=== PATIENT | male | born 1945 | race Caucasian/White ===

== ENCOUNTER 2016-11-29 13:33 | Inpatient (IN) | payer MEDICARE, OTHER ==
[~2016-11-29] VITALS: Ht 185.4 cm; Wt 83.1 kg
[2016-11-29] VITALS (7 sets, daily range): BP systolic 102–124; BP diastolic 55–79; PULSE 66–114; RESP 18–31; O2SAT 94–98
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
[~2016-11-29 13:33] MED LIST: ALBU90AE INHALATION; AMLO5TAB2 PO; CARV12.52 PO; CLOB50SO TOPICAL; ERGO500050 PO; FRSM80T PO; IPRA3AMP IH; LEVO100T6 PO; MELA1TAB11 PO; NEPHVIT PO; PRD5T PO; PRED-508 PO; SEVE800T7 PO
[2016-11-29] MEDS ORDERED: MethylprednisoLONE Sodium Succinate 62.5 mg/mL 2 mL Inj IVPUSH ONE (13:40)
[2016-11-29] MEDS ORDERED: Albuterol 2.5 mg/3 mL Inhalation Solution NEB ONE (13:50)
[2016-11-29 14:09] LABS: BASOPHILS % (AUTO) 0.3 % (0-3); EOSINOPHILS % (AUTO) 0.6 % (0-5); MONOCYTES % (AUTO) 13.3 % (4-12); Mean Corpuscular Volume 91.7 fL (81-100); NEUTROPHILS % (AUTO) 68.8 % (40-74); Platelet Count 79 bil/L (150-400)
--- NOTE | 2016-11-29 14:38 | DRSVH ---
PROCEDURE: X-RAY CHEST ONE VIEW, PORTABLE ([id number]) INDICATIONS: resp distress TECHNIQUE: One view of the chest was acquired. COMPARISON: [facility], CR, XR CHEST 2VW, 11/26/2016, 13:25. FINDINGS: Surgical changes and devices: None. Lungs and pleura: Small right-sided pleural fluid collection is unchanged compared to prior examinat ion. Bibasilar lung opacities have decreased in size compared to prior examination. Right midlung p leural-based lesion is stable compared to prior examinations. Mild cephalization of pulmonary vascul ature is noted suggesting CHF. Mediastinum: Mediastinal contours appear normal. Heart size is mildly enlarged. Bones and chest wall: No suspicious bony lesions. Overlying soft tissues appear unremarkable. IMPRESSION: 1. Mild cephalization of pulmonary vasculature suggesting CHF. Please correlate with clinical data. 2. Small right-sided pleural fluid collection is stable. 3. Bibasilar opacities decreased in size compared to 11/26/2016 Dictated by: Sandra Crum MD, PhD on 11/29/2016 at 14:36 Approved by: Sandra Crum MD, PhD on 11/29/2016 at 14:36
[2016-11-29 15:03] LABS: TROPONIN T 0.221 ug/L (0.0-0.011)
[2016-11-29] MEDS ORDERED: Furosemide 10 mg/mL 2 mL Inj IVPUSH ONE (15:50)
[2016-11-29] MEDS ORDERED: Furosemide 10 mg/mL 4 mL Inj IVPUSH ONE (15:55)
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
[2016-11-29] MEDS ORDERED: MIDO5TAB PO (17:15)
[2016-11-29] MEDS ORDERED: METO25TA99 PO (17:15)
[2016-11-29] MEDS ORDERED: LEVO500T79 PO (17:15)
[2016-11-29] MEDS ORDERED: ERGO2000 PO (17:17)
[2016-11-29] MEDS ORDERED: ATRINH INH ×2 (17:17→19:55)
[2016-11-29] MEDS ORDERED: ALBU18HF INH (17:17)
--- NOTE | 2016-11-29 18:15 | CONS ---
[address] [address] CONSULTATION REPORT PATIENT: KASSANDRA CARNEY : 1945 MR#: [id number] ADMIT: 11/29/2016 JOB ID: [id number] DATE OF SERVICE: 11/29/2016 HISTORY: The patient is a 71-year-old white male who has a history of end-stage renal disease and is well known to me as I follow him both as an in and outpatient. He is being admitted for decompensated heart failure and renal consultation is being sought for further evaluation of his fluid status. The patient has a longstanding history of end-stage renal disease which is secondary to retroperitoneal fibrosis. He also has a history of mitral valvular disease and has chronic congestive heart failure along with severe COPD. He has declined any intervention in the past, however, in the last few weeks he has had worsening symptoms of orthopnea, dyspnea at rest, conversational dyspnea, anorexia, and difficulty sleeping. He has had several extra dialysis treatments but these are only of limited utility. He states that he has had worsening shortness of breath over the last 24 hours and came to the emergency department. In the emergency department, he was treated with higher flow oxygen and chest x-ray revealed a water bottle heart and moderate to severe evidence of congestive heart failure on his chest x-ray. We are scheduling him for an emergent ultrafiltration treatment this evening. PAST MEDICAL HISTORY: Significant for end-stage renal disease secondary to retroperitoneal fibrosis for which he normally dialyzes on Wednesday, Wednesday, and Wednesday. His last dialysis was done this past Wednesday. There is also a history of severe COPD, for which he is oxygen-dependent, mitral valvular disease, congestive heart failure, hypertension with hypertensive heart disease and hypertensive nephrosclerosis, hypothyroidism, and psoriasis. PAST SURGICAL HISTORY: Significant for a hernia repair, several ureterostomies and a left upper arm fistula. ALLERGIES: He is allergic to TIOTROPIUM. SOCIAL HISTORY: He has a greater than 100 pack year smoking history and continues to smoke. He does state that he has a history of alcohol abuse in the past and has limited alcohol intake. FAMILY HISTORY: Noncontributory. REVIEW OF SYSTEMS: Otherwise, he denies any diplopia, severe headache, fever, chills, chest pain, or worsening of his lower extremity edema. He does have generalized malaise and I feel he has probably moderate cardiac cachexia. PHYSICAL EXAMINATION: Revealed a frail, somewhat cachectic-appearing 71-year-old, white male who was alert and oriented x3 with some moderate respiratory distress at time of my evaluation. He had evidence of conversational dyspnea and he was using his accessory muscles of respiration. His blood pressure is 111/55 with a pulse rate of 102, temperature was 37. HEENT examination is remarkable for pale sclerae and bitemporal wasting. Neck is supple without adenopathy or thyromegaly. He does have moderate jugular venous distention at 90 degrees. Examination of his chest showed increased AP diameter and scattered rales and end-expiratory wheezes were noted in both lung viveros. His heart was regular and rhythmical with a harsh systolic ejection murmur. Abdomen is soft with some moderate distention and a possible free fluid wave. There is hepatomegaly noted. Extremities showed some mild to moderate bilateral lower extremity edema approximately senior living up his distal lower legs. There is also evidence of clubbing but no cyanosis was noted. Skin turgor was good and there is no evidence of any rashes. LABORATORY EXAMINATION: In the emergency department, his white count was 7.1, hemoglobin 10.7, hematocrit 36.4, had 79,000 platelets. Sodium was 137, potassium 4.4, chloride 91, CO2 of 24. BUN and creatinine were 46 and 6.95. His blood sugar was 112. IMPRESSION: 1. Acute decompensated congestive heart failure with pulmonary edema secondary to chronic mitral valvular disease. 2. End-stage renal disease. 3. Hypertension with hypertensive heart disease and hypertensive nephrosclerosis. 4. Chronic obstructive pulmonary disease. RECOMMENDATION: I will go ahead and make arrangements for him to undergo 2 hours of isolated ultrafiltration this evening to remove several liters of fluid. I will also put him on the list to be dialyzed once again tomorrow. I would also like to have Cardiology evaluate him, and I would also like to get an ultrasound of his abdomen for possible ascites. Once again, I would like to thank you for allowing me to participate in the care of this rather unfortunate and pleasant patient, and I will be following him closely with you.
--- NOTE | 2016-11-29 19:46 | NUR ---
admission patient receiving dialysis at this time. severe edema to lower extremities, feet, ankles severe psoriasis to anterior calves, ankle, feet. unable to complete skin assessment at this time because of dialysis machine. patient states "i have psoriasis on my backside." patient hit right forearm this morning at home. has abrasion just below antecubital area. short of breath, chronic. tachypneic. markedly decreased. talking in full sentences. reviewed fall precautions. refuses slipper socks. refuses to use bsc. states "i have to walk to the bathroom or i won't go." again, explained fall precautions. patient unwilling to comply to bsc. tele atrial fibrillation rate 90-100. care ongoing.
--- NOTE | 2016-11-29 20:03 | NUR ---
noncompliant with medications patient has home medications with him in the room. reviewed home meds with med rec. explained to patient that the medications need to be checked in with the pharmacy or taken home. patient then became very angry, and stated that the medications couldn't leave him, and he insists that two of the medications be taken now. states "the doctor downstairs told me it was okay." the patient then stated "i am going to leave after dialysis because you won't let me take my medications from home" called charge nurse savi barros. notified nursing poly area supervisor, rola. per harnessmaker apprentice, rola will be up to speak with the patient. notified [facility] hospitalist. via [employer].
[2016-11-29] MEDS ORDERED: Albuterol HFA 60 Puff 8 Gm Inhaler INHALATION PRN (20:05)
[2016-11-29] MEDS ORDERED: levoFLOXacin 500 mg Tablet PO SCH (20:15)
[2016-11-29] MEDS ORDERED: Clobetasol Prop 0.05% 15 Gm Ointment TOPICAL PRN (20:20)
--- NOTE | 2016-11-29 20:21 | NUR ---
noncompliance spoke with swing hospitalist. he stated he gave an okay for the patient to keep his inhaler next to the bedside. patient insists that the doctor stated he can take his levaquin from home. clutching the bottle, states "if you don't let me i am going home." notified charge account identification clerk. awaiting nursing supervisor corduroy cutting to speak with patient. patient also will not allow his home medications to be checked in to pharmacy.
[2016-11-29] MEDS: Albuterol 2.5 mg/3 mL Inhalation Solution NEB SCH (20:33)
[2016-11-29] MEDS ORDERED: PYRIDOXINE PO SCH (21:00)
[2016-11-29] MEDS ORDERED: MELATONIN PO SCH (21:00)
--- NOTE | 2016-11-29 21:02 | NUR ---
Dialysis note 2 hrs PUF tx. 2500ml net UF removed. See DTR for complete vitals. Pt very SOB/productive cough/agitated/restless. Sureseals/clamps X10 mins post tx.
[2016-11-29] MEDS: levoFLOXacin 250 mg Tablet PO SCH (22:30)
[2016-11-29] MEDS ORDERED: HYDROcodone-APAP 5-325 mg Tablet PO PRN (22:35)
[2016-11-29] MEDS ORDERED: Polyethylene Glycol (PEG) 17 Gm Powder PO PRN (22:35)
[2016-11-29] MEDS ORDERED: Alum-Mag Hydrox-Simeth 30 mL Suspension PO PRN (22:35)
[2016-11-29] MEDS ORDERED: Ondansetron 2 mg/mL 2 mL Inj IVPUSH PRN (22:35)
[2016-11-29] MEDS: MethylprednisoLONE Sodium Succinate 40 mg/mL Inj IVPUSH SCH (22:53)
[2016-11-29] MEDS: Ipratropium HFA 200 Puff 12.9 Gm Inhaler INHALATION SCH (22:53)
[2016-11-29] MEDS: Sodium Chloride LOK Flush 10 mL Syringe IVFLUSH SCH (22:55)
[2016-11-29] MEDS: Albuterol HFA 60 Puff 8 Gm Inhaler INHALATION PRN (22:59)
--- NOTE | 2016-11-29 23:17 | NUR ---
noncompliance patient non compliant with fall policy. insists that when he gets oob, it will be independently, and he will walk to the bathroom independently, without assistance, and requires privacy when in the bathroom. explained falls policy and safety precautions. patient states "i will take no help, i will help myself, i require respect for dignity." placed bed alarm on. patient refuses slipper socks. wants his own slippers in the closet.
--- NOTE | 2016-11-29 23:19 | NUR ---
noncompliance - skin patient non compliant with skin assessment refuses to turn or stand to assess sacrum.
--- NOTE | 2016-11-29 23:28 | NUR ---
noncompliance - blood sugar blood sugar 216. patient refuses insulin s.s. states "i won't allow my blood sugar taken again. i refuse insulin."
--- NOTE | 2016-11-29 23:43 | NUR ---
discourtesy patient discourteous. when nurse offers assistance, patient states "you are insulting my independence." insists afrin be left at bedside for independent use. explained this is against policy. patient angry. does not listen to explanation.
[2016-11-30] VITALS (12 sets, daily range): BP systolic 110–130; BP diastolic 55–85; PULSE 56–106; RESP 18–28; O2SAT 92–100
[2016-11-30] MEDS: Albuterol 2.5 mg/3 mL Inhalation Solution NEB SCH ×6 (00:27→19:32)
--- NOTE | 2016-11-30 00:56 | NUR ---
home meds checked in home meds checked into pharmacy.
[2016-11-30] MEDS: MethylprednisoLONE Sodium Succinate 40 mg/mL Inj IVPUSH SCH (03:47)
[2016-11-30] MEDS: LORazepam 0.5 mg Tablet PO PRN (04:47)
--- NOTE | 2016-11-30 05:52 | NUR ---
anxiety/ insomnia patient unable to sleep. anxious. given lorazepam 0.5mg po. patient cont to be wide awake. making phone calls. care ongoing.
[2016-11-30] MEDS: Ipratropium HFA 200 Puff 12.9 Gm Inhaler INHALATION SCH ×4 (05:54→21:26)
[2016-11-30] MEDS: Albuterol HFA 60 Puff 8 Gm Inhaler INHALATION PRN (05:55)
[2016-11-30] MEDS: Sodium Chloride LOK Flush 10 mL Syringe IVFLUSH SCH ×3 (07:31→22:40)
[2016-11-30] MEDS: Heparin 5,000 Unit/mL Inj SUBQ SCH ×2 (08:30→20:30)
[2016-11-30] MEDS ORDERED: predniSONE 5 mg Tablet PO SCH (08:30)
[2016-11-30] MEDS ORDERED: Vitamin B Complex/Vit C Tablet PO SCH (08:30)
[2016-11-30] MEDS: MeTOProlol XL 25 mg ER24 Tablet PO SCH (08:30)
[2016-11-30 08:40] LABS: EOSINOPHILS % (AUTO) 0 % (0-5); Mean Corpuscular Hemoglobin 27.2 pg (27.0-35.0); Mean Corpuscular Volume 92.4 fL (81-100); Platelet Count 75 bil/L (150-400)
[2016-11-30 09:36] LABS: BASOPHILS % (AUTO) 0 % (0-3); MONOCYTES % (AUTO) 3 % (4-12); NEUTROPHILS % (AUTO) 82 % (40-74)
[2016-11-30] MEDS: levoFLOXacin 250 mg Tablet PO SCH ×2 (11:00→22:39)
--- NOTE | 2016-11-30 11:07 | PCM.PNMED ---
Subjective Date of Service Nov 30, 2016 Subjective Patient is to have some slight improvement with his shortness of breath over the night but this morning he continues to have difficulty breathing. I have had a naima discussion with the patient is far as the risks and potential benefits of bowel surgery and his multiple risk factors and comorbidities. States at this point he cannot be transferred to the [facility] wishes to be discharged within the next day or so. Exam Vital Signs Vital Sign - Last Date Time Temp Pulse Resp B/P Pulse Ox O2 Delivery O2 Flow Rate FiO2 11/30/16 08:48 36.5 103 24 126/55 98 Nasal Cannula 5.00 Intake and Output 11/29/16 11/29/16 11/30/16 Cumulative From/Thru 15:00 23:00 07:00 11/29/16 13:39 - 11/30/16 06:24 Intake Total 800 ml 800 ml Output Total 2500 ml 0 ml 2500 ml Balance -2500 ml 800 ml -1700 ml Intake Oral 800 ml 800 ml Output Urine Total 0 ml 0 ml Ultrafiltrate 2500 ml 2500 ml Exam Neck is supple without adenopathy thyromegaly he does have JVD at 90. Lungs diffuse end expiratory wheezes and bilateral rales. Heart demonstrated a harsh systolic and diastolic murmur. Abdomen is distended with questionable free fluid wave. Extremities showed some mild to moderate bilateral lower extremity edema with chronic vascular disease noted. 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 Also to schedule him for abdominal ultrasound to assess his abdominal fluid and large-volume paracentesis if indicated. Ap Pearce DO Nov 30, 2016 11:07
--- NOTE | 2016-11-30 12:00 | NUR ---
blood sugar is refusing blood sugar checks or insulin coverage. charted morning bg from morning labs.
--- NOTE | 2016-11-30 13:18 | PCM.PNMED ---
Subjective Date of Service Nov 30, 2016 Subjective 71 yr old male with history of ESRD on dialysis, oxygen dependent COPD and CHF presented to the ER with complaint of worsening dyspnea. Pt is very frustrated with the care he has received, stating "I don't know if i trust you people to take of me, no one knows renal stuff". Pt states that he got into some arguments with nursing last night, and considered leaving AMA. Pt notes that if he does not receive better care today, he may leave. Pt reports that his shortness of breath is worsening, and states it is because of his care. Pt reports that overnight he had difficulty breathing and was coughing more. Pt denies any nausea or vomiting or abdominal pain, but does report some constipation. Offered pt stool softener, pt declined. Pt denies any fevers, chills, myalgias. Per nursing notes, pt was non compliant with medications and falls policy overnight. Pt adamant about keeping his home medications with him. See nurse notes for details. Per previous records - Dr Ramos's note 08/2016--"The patient has two prior admissions from which he left AMA. He initially presented with progressive fatigue, malaise, fevers and rigors. At the time an ECHO showed a questionable mitral valve abnormality with curiously negative blood cultures off antibiotics. During that admission, he was noted on echocardiogram to have a mitral valve vegetation secondary to his central access for dialysis, which was then removed. A plan was made to initiate vancomycin and ceftazidime antibiotic therapy with the patient's dialysis, however he signed out AMA. He subsequently returned with another COPD exacerbation. Blood cultures obtained at that time only showed one bottle with staph saprophyticus which was a likely contaminant. He was treated empirically with vancomycin and ceftazidime for a planned course of 6-8 weeks. The patient was scheduled for an ABBAK however he left AMA the day before it could be completed. He was newly diagnosed with right heart failure secondary to mitral stenosis during his last admission." Exam Vital Signs Vital Sign - Last Date Time Temp Pulse Resp B/P Pulse Ox O2 Delivery O2 Flow Rate FiO2 11/30/16 04:43 36.5 86 22 120/82 95 Nasal Cannula 5.00 Intake and Output 11/29/16 11/29/16 11/30/16 Cumulative From/Thru 15:00 23:00 07:00 11/29/16 13:39 - 11/30/16 06:24 Intake Total 800 ml 800 ml Output Total 2500 ml 0 ml 2500 ml Balance -2500 ml 800 ml -1700 ml Intake Oral 800 ml 800 ml Output Urine Total 0 ml 0 ml Ultrafiltrate 2500 ml 2500 ml Exam General: Pt is sitting up in bed, mild respiratory distress, appropriately interactive HEENT: Normocephalic, atraumatic.Pale conjunctivae. Oropharynx with moist mucosa. Neck: Supple with full range of motion. JVD present Cardiovascular: Regular rate and rhythm with systolic murmur auscultated Pulmonary: Decreased lung sounds bilaterally 2/3 of lungs, crackles heard upper 1/3 of lung viveros. Increased work of breath with use of accessory muscles.Mild conversational dyspnea Abdomen: Mildly distended- which pt notes is chronic.Unable to assess for fluid wave as pt refused. Bowel tones present. Soft, nontender. Extremities: 2-3+ pitting edema bilateral lower extremities, skin is very dry. Unable to palpate pulses on lower extremities due to edema. Skin: Normal temperature, no rash, ulcers, or subcutaneous nodules appreciated. Neurological: Cranial nerves grossly intact. Normal muscle strength, tone, and bulk. Reflexes, coordination, and sensory function within normal limits. No known gait impairment. Psychiatric: Mildly agitated, but normal affect. Alert and oriented to person, place, and time. IVs and Medications Medications Reviewed: Medications were reviewed in detail Lab and Diagnostics Result Diagram: 11/29/16 1340 11/29/16 1340 X-Rays, CTs and MRIs PROCEDURE: X-RAY CHEST ONE VIEW, PORTABLE FINDINGS: Surgical changes and devices: None. Lungs and pleura: Small right-sided pleural fluid collection is unchanged compared to prior examination. Bibasilar lung opacities have decreased in size compared to prior examination. Right midlung pleural-based lesion is stable compared to prior examinations. Mild cephalization of pulmonary vasculature is noted suggesting CHF. Mediastinum: Mediastinal contours appear normal. Heart size is mildly enlarged. Bones and chest wall: No suspicious bony lesions. Overlying soft tissues appear unremarkable. IMPRESSION: 1. Mild cephalization of pulmonary vasculature suggesting CHF. Please correlate with clinical data. 2. Small right-sided pleural fluid collection is stable. 3. Bibasilar opacities decreased in size compared to 11/26/2016 Dictated by: Sandra Crum MD, PhD on 11/29/2016 at 14:36 Approved by: Sandra Crum MD, PhD on 11/29/2016 at 14:36 Assessment & Plan 71 yr old male with history of ESRD on dialysis, oxygen dependent COPD with ongoing tobacco use,mitral valve vegetation with possible endocarditis, diastolic CHF, afib, HTN, and HLD who presents to the ED complaining of increased shortness of breath. He typically uses 5L O2 at home and uses nebulizer treatments. Acute COPD exacerbation, present on admission, ongoing - Pt presents with progressive shortness of breath at rest and with exertion, with productive cough. Presents with decreased lung sounds and prolonged expiratory phase. - CXR shows "bibasilar opacities decreased in size compared to 11/26/2016" - DuoNeb q4h while awake - Albuterol neb q2h PRN -IV Solu-Medrol 60 mg every 8 discontinued -Prednisone 40mg BID, then 40mg daily for 5 days. - Sputum cultures ordered -Levaquin being given Acute decompensated diastolic congestive heart failure exacerbation, present on admission, ongoing - Monitor on telemetry -Diuresing pt -US of abdomen ordered to assess for ascites and possible need for paracentesis -Cardiology has been consulted, we appreciate their input. Elevated troponin, acute on chronic. - Pt has chronically elevated troponin secondary to ESRD and likely chronic from severe mitral valve calcification - Monitor troponin End-stage renal disease on dialysis - Dialysis M/W/F as at home - Nephrology has been consulted. We appreciate their expertise -Underwent 2 hours ultrafiltration on 11/29/16 Urinary tract infection, present prior to admission. -Pt prescribed 10 day course of Levaquin [address] Pearce -Continue with abx Mitral valve vegetation, unknown chronicity - Echo 08/12/16 showed mitral valve vegetation - Blood cultures x2 Tobacco use, chronic - Pt smokes over 1 pack per day. - Nicotine patch available - Pt counseled on smoking cessation. 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 No BiPAP Prophylaxis -DVT-SCDs and heparin, GI not indicated Resuscitation Status: Limited Interventions (cpr and shock ok, DNI and no BiPAP) Limited Interventions: Compressions, Cardioversion/Defibrillation Attending Statement The patient was seen and examined together with Dr. Lepe on 11/30/2016 and I agree with the history, exam and plan as outlined in the note above. Lesvia Lepe DO Nov 30, 2016 07:13 Bobby Siu MD Nov 30, 2016 20:46
[2016-11-30] MEDS: predniSONE 20 mg Tablet PO SCH ×2 (13:31→21:23)
--- NOTE | 2016-11-30 14:00 | NUR ---
off unit for dialysis pt went to dialysis in bed with portable O2. no s/s of distress at time of transfer
--- NOTE | 2016-11-30 14:04 | NUR ---
Social Work-initial assessment: Data:See initial assessment. Pt is a 71 y/o male who was admitted on 11/29/16 for CHF per H&P. Pt's insurance is [employer] and PCP is not listed. EMR reviewed. SW met with pt at bedside to discuss discharge planning, SW role explained. Pt is alert and oriented x3. Pt resides at home with his , son, and grandson in a home in [place]. Pt does not drive and does not use any DME. Pt has no HH or SNF history. SW attempted to continue to discuss assessment, but pt states he is not in mood to further discuss anything today. Pt requests that SW come back again tomorrow. SW placed phone number on white board in room. SW will continue to follow. Assessment:Pt who is independent at baseline. Plan:Anticipate pt to discharge home when medically stable. SW to follow up again tomorrow to complete full assessment. SW will continue to follow. PRAVEEN Bailey Addendum: 11/30/16 at 1409 by TUYET KING Amended: Links added.
--- NOTE | 2016-11-30 18:29 | NUR ---
shift note pt left unit for dialysis at 1400 and has not returned yet. Pt refused almost all of morning meds and blood sugar checks. Unable to do all interventions including second assessment d/t being off the unit. Pt was very agitated while on the floor and refused most tx and medications. A&O X3. Refused to let nurse do full skin assessment. Pt stated that he has psoriasis on scrotum and sacrum.
--- NOTE | 2016-11-30 18:30 | NUR ---
Dialysis note: 4 hrs tx. 3000 ml net UF. Left upper arm fistula. Pls see DTR for VS details. Qb 400. No heparin given. O2 @ 6L via NC on. Tolerated tx. Fistula needle sites clotted w/in 10 min.
[2016-11-30] MEDS ORDERED: levoFLOXacin 250 mg Tablet PO SCH (22:13)
[2016-11-30] MEDS: Vitamin B Complex/Vit C Tablet PO SCH (22:39)
[2016-12-01] VITALS (14 sets, daily range): BP systolic 98–131; BP diastolic 65–83; PULSE 38–121; RESP 20–24; O2SAT 92–99
[2016-12-01] MEDS: Albuterol 2.5 mg/3 mL Inhalation Solution NEB SCH ×6 (00:46→20:30)
[2016-12-01] MEDS ORDERED: MeTOProlol 1 mg/mL 5 mL Inj IVPUSH ONE (01:30)
--- NOTE | 2016-12-01 02:12 | PCM.PNMED ---
Subjective Date of Service Dec 01, 2016 Subjective THIS IS A QUICK PROGRESS NOTE FROM NIGHT RESIDENT, JASMIN . Exam Vital Signs Vital Sign - Last Date Time Temp Pulse Resp B/P Pulse Ox O2 Delivery O2 Flow Rate FiO2 12/01/16 00:40 86 24 98 Nasal Cannula 5.00 12/01/16 00:34 36.0 127/82 Intake and Output 11/30/16 11/30/16 12/01/16 Cumulative From/Thru 15:00 23:00 07:00 11/29/16 13:39 - 11/30/16 19:23 Intake Total 250 ml 1050 ml Output Total 3000 ml 5500 ml Balance -2750 ml -4450 ml Intake Oral 250 ml 1050 ml Output Urine Total 0 ml Ultrafiltrate 3000 ml 5500 ml # Bowel Movements 1 1 Lab and Diagnostics Result Diagram: 11/30/16 0825 11/30/16 0825 X-Rays, CTs and MRIs PROCEDURE: X-RAY CHEST ONE VIEW, PORTABLE FINDINGS: Surgical changes and devices: None. Lungs and pleura: Small right-sided pleural fluid collection is unchanged compared to prior examination. Bibasilar lung opacities have decreased in size compared to prior examination. Right midlung pleural-based lesion is stable compared to prior examinations. Mild cephalization of pulmonary vasculature is noted suggesting CHF. Mediastinum: Mediastinal contours appear normal. Heart size is mildly enlarged. Bones and chest wall: No suspicious bony lesions. Overlying soft tissues appear unremarkable. IMPRESSION: 1. Mild cephalization of pulmonary vasculature suggesting CHF. Please correlate with clinical data. 2. Small right-sided pleural fluid collection is stable. 3. Bibasilar opacities decreased in size compared to 11/26/2016 Dictated by: Sandra Crum MD, PhD on 11/29/2016 at 14:36 Approved by: Sandra Crum MD, PhD on 11/29/2016 at 14:36 12-lead ECG Personally reviewed by ia sinus tachycardia with first-degree AV block with a rate of 106 QTC of [address] segment changes consistent with ischemia Assessment & Plan 71 yr old male with history of ESRD on dialysis, oxygen dependent COPD with ongoing tobacco use,mitral valve vegetation with possible endocarditis, diastolic CHF, afib, HTN, and HLD who presents to the ED complaining of increased shortness of breath. He typically uses 5L O2 at home and uses nebulizer treatments. I was called to patient's bedside by the nurse because the patient was having chest pain. She had ordered an EKG which didn't look much different. Patient's pain was left side of chest and when I walked in, he was piercing his lips and unable to speak in full sentences. He has been refusing his oral metoprolol and his HR had been 115-125 for hours. I asked him why he refused it and he said that it makes him feel funny and dizzy. I explained that he needed rate control and after much discussion, he agreed to a trial of 2.5mg IV push of metoprolol. I stayed with him during this time because he said several times that he was scared of metoprolol. His HR immediately went down to 92 and his BP stayed at 124/72. He felt better instantly and relaxed and was able to speak in full sentences. He still feels cautious about the medication, but I will order the 2.5mg IV push PRN and let the day team adjust his medication appropriately ( perhaps 25mg PO was too high a dose?). I will order the IV push because it worked once and patient is comfortable with the dose but I understand that he needs to go to PO. By the way, I was able to discuss some end-of-life issues. 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 Admitted that he is scared to . . Resuscitation Status: Limited Interventions (cpr and shock ok, DNI and no BiPAP) Limited Interventions: Compressions, Cardioversion/Defibrillation Attending Statement Note reviewed by myself. Nicolette Casanova DO Dec 01, 2016 02:12 Magda Jack MD Dec 04, 2016 18:54
[2016-12-01] MEDS ORDERED: MeTOProlol 1 mg/mL 5 mL Inj IVPUSH PRN (02:15)
--- NOTE | 2016-12-01 04:00 | NUR ---
Chest pain, Heart rate, Dizziness: Pt reported chest pain that improved after a breathing treatment early in the shift, and again around midnight. An EKG and neb treatment were done with each occurrence. The second episode was described as a "cold" feeling and shortness of breath; no dizziness, nausea, pain. Heart rate was in the 120s-130s, the chest "coldness" was not decreasing after the neb treatment as before. The night resident was called and to the pt's room to review the EKGs and assess pt. It was noted that pt had been refusing his Metoprolol. Pt reported this was a new prescription and it made him dizzy and "about hit my nose on the table". After speaking with the resident, pt agreed to a small dose of IV Metoprolol. Medication administered, heart rate decreased to 90-100s and pt's had more ease of breathing. Since receiving the Metoprolol, pt has reported feeling dizzy. BP has been taken, also taken lying- 112/68- and sitting- 124/83. Pt informed to call for assistance when needing to get out of bed, pt aware.
[2016-12-01 06:39] LABS: BASOPHILS % (AUTO) 0.1 % (0-3); EOSINOPHILS % (AUTO) 0 % (0-5); Mean Corpuscular Hemoglobin 27.2 pg (27.0-35.0); Mean Corpuscular Volume 93.7 fL (81-100); NEUTROPHILS % (AUTO) 81.5 % (40-74); Platelet Count 84 bil/L (150-400)
[2016-12-01] MEDS: Ipratropium HFA 200 Puff 12.9 Gm Inhaler INHALATION SCH ×4 (06:46→21:29)
[2016-12-01 07:22] LABS: INR 1.08 ratio
[2016-12-01] MEDS: predniSONE 20 mg Tablet PO SCH ×2 (08:00→21:37)
[2016-12-01] MEDS: MeTOProlol XL 25 mg ER24 Tablet PO SCH (08:04)
[2016-12-01] MEDS: Vitamin B Complex/Vit C Tablet PO SCH (08:04)
[2016-12-01] MEDS: Heparin 5,000 Unit/mL Inj SUBQ SCH ×2 (08:04→20:30)
[2016-12-01] MEDS: Sodium Chloride LOK Flush 10 mL Syringe IVFLUSH SCH ×2 (08:04→16:18)
--- NOTE | 2016-12-01 10:09 | PCM.PNMED ---
Subjective Date of Service Dec 01, 2016 Subjective Patient was tested positive for influenza and is currently on treatment for this. His breathing remains quite difficult and I will attempt to do some gentle fluid removal today with 3 hours of isolated ultrafiltration. I have also discussed the case with Dr. Woods the patient's crester and she will see him today. Exam Vital Signs Vital Sign - Last Date Time Temp Pulse Resp B/P Pulse Ox O2 Delivery O2 Flow Rate FiO2 12/01/16 08:30 Supplement Oxygen 12/01/16 08:29 67 22 99 5.00 12/01/16 06:44 120/81 12/01/16 00:34 36.0 Intake and Output 11/30/16 11/30/16 12/01/16 Cumulative From/Thru 15:00 23:00 07:00 11/29/16 13:39 - 12/01/16 06:44 Intake Total 250 ml 400 ml 1450 ml Output Total 3000 ml 0 ml 5500 ml Balance -2750 ml 400 ml -4050 ml Intake Oral 250 ml 400 ml 1450 ml Output Urine Total 0 ml 0 ml Ultrafiltrate 3000 ml 5500 ml # Bowel Movements 1 0 1 Exam The patient has evidence of moderate conversational dyspnea and utilization of his accessory muscles of respiration. There is venous distention present. Lungs were clear though he has diminished breath sounds diffusely throughout his chest going to his history of emphysema. Abdomen was soft systolic murmur. Abdomen is soft without tenderness or rebound guarding masses or hepatosplenomegaly however his abdomen is distended. Extremities showed just mild to moderate lower extremity edema. Lab and Diagnostics Result Diagram: 12/01/16 0610 12/01/16 0610 X-Rays, CTs and MRIs PROCEDURE: X-RAY CHEST ONE VIEW, PORTABLE FINDINGS: Surgical changes and devices: None. Lungs and pleura: Small right-sided pleural fluid collection is unchanged compared to prior examination. Bibasilar lung opacities have decreased in size compared to prior examination. Right midlung pleural-based lesion is stable compared to prior examinations. Mild cephalization of pulmonary vasculature is noted suggesting CHF. Mediastinum: Mediastinal contours appear normal. Heart size is mildly enlarged. Bones and chest wall: No suspicious bony lesions. Overlying soft tissues appear unremarkable. IMPRESSION: 1. Mild cephalization of pulmonary vasculature suggesting CHF. Please correlate with clinical data. 2. Small right-sided pleural fluid collection is stable. 3. Bibasilar opacities decreased in size compared to 11/26/2016 Dictated by: Sandra Crum MD, PhD on 11/29/2016 at 14:36 Approved by: Sandra Crum MD, PhD on 11/29/2016 at 14:36 12-lead ECG Personally reviewed by me sinus tachycardia with first-degree AV block with a rate of 106 QTC of [address] segment changes consistent with ischemia Assessment & Plan Impression #1 end-stage renal disease also dependent #2 severe biventricular congestive heart failure #3 severe COPD number for influenza Recommendations #1 I would like to go ahead and do 3 hours of isolated ultrafiltration attempt to remove to 2 l of fluid. I will WAITING TO HAVE HIS ULTRASOUND DONE TO SEE IF WE CAN DRAW SOME FLUID FROM HIS ABDOMEN. OTHERWISE I WILL MAKE ARRANGEMENTS FOR HIS DIALYSIS ONCE AGAIN TOMORROW. Resuscitation Status: Limited Interventions (cpr and shock ok, DNI and no BiPAP) Limited Interventions: Compressions, Cardioversion/Defibrillation Ap Pearce DO Dec 01, 2016 10:09
--- NOTE | 2016-12-01 11:45 | NUR ---
Palliative Care Palliative Care received verbal order from Dr Nichole Lepe 12/01/16 to assist with goals of care. Patient is a 71 year old male with history of ESRD on dialysis, oxygen dependent COPD ,mitral valve vegetation with possible endocarditis, diastolic CHF, afib, HTN and HLD. He was admitted 11/29/16 due to increased shortness of breath. He is receiving care for acute COPD exacerbation. Palliative Care team saw patient numerous times during 10/2015 admission. Patient lives at home with . Juliet Valle () [phone] Koffi Valle (son) [phone] Palliative Care will see patient 12/02/16. Nakia Marquez
--- NOTE | 2016-12-01 11:47 | NUR ---
Medication refusal Patient refused morning medications due to patient usually taking them at different times at home. Patient did take Lasix, Renvela, and Tylenol, but nothing else. was informed of his refusal of medications.
[2016-12-01] MEDS: LORazepam 0.5 mg Tablet PO PRN ×2 (12:40→21:41)
--- NOTE | 2016-12-01 13:52 | NUR ---
Dialysis note 2 1/2 hrs of PUF tx completed before pt requesting to come off tx. 2 15 g needles to [place] fistula. QB 250. Heparin bolus/no hrly given. Pt very restless, SOB, c/p a burning type chest pain. Ativan and Tylenol given. See DTR for complete vitals. Sureseals/clamps X15 mins. Report given and pt returned to floor stable.
--- NOTE | 2016-12-01 14:20 | NUR ---
NUTRITION ASSESSMENT Assess: 71 yo M admitted w/ acute COPD exacerbation and acute decompensated diastolic heart failure. Pt also w/ ESRD on HD M/W/F. PMHx: ESRD on HD, COPD, CHF, Hypothyroid, Tobacco use, Psoriasis LABS: Reviewed. Cl 91, BUN 34, Cr 4.4, Glu 138 MEDICATIONS: Reviewed. Prednisone, Nephro-joseph, Renvela, Lasix DIET: Renal, PO 50% GI symptoms/stool: BM x1 1/2 Skin integrity: No issues reported, Oscar: 21 ANTHROPOMETRICS: Current Wt: 85.7 kg BMI: 24.9 kg/g8[place]oss Wt: 85.7 kg IBW: 83.6 kgRecent wt changes: 3.3 kg wt loss x6 months (4% = not significant) ESTIMATED NEEDS: Hemodialysis/COPD Calories: 3556-9335 kcal/d (35-40 kcal/kg/d) Protein: 105-170 g/d (1.2-2.0 g/kg/d) Fluids: 7143-6304 ml/d NUTRITION DIAGNOSIS: 1) Increased nutrient needs related to chronic disease as evidenced by COPD and ESRD w/ HD. INTERVENTION: 1) Will send Nepro BID MONITOR/EVALUATE: PO intake, Labs, Wt, Nutrition status, POC. Will follow up per moderate nutrition risk guidelines.
--- NOTE | 2016-12-01 15:13 | PCM.PNMED ---
Subjective Date of Service Dec 01, 2016 Subjective Patient reports that he is not improving from yesterday. Pt reports that he continues to feel short of breath and feels very fatigued. Pt states that last night he was given metoprolol which made him very dizzy. He states that he will not take this medication any more. Exam Vital Signs Vital Sign - Last Date Time Temp Pulse Resp B/P Pulse Ox O2 Delivery O2 Flow Rate FiO2 12/01/16 08:30 Supplement Oxygen 12/01/16 08:29 67 22 99 5.00 12/01/16 06:44 120/81 12/01/16 00:34 36.0 Intake and Output 11/30/16 11/30/16 12/01/16 Cumulative From/Thru 15:00 23:00 07:00 11/29/16 13:39 - 12/01/16 06:44 Intake Total 250 ml 400 ml 1450 ml Output Total 3000 ml 0 ml 5500 ml Balance -2750 ml 400 ml -4050 ml Intake Oral 250 ml 400 ml 1450 ml Output Urine Total 0 ml 0 ml Ultrafiltrate 3000 ml 5500 ml # Bowel Movements 1 0 1 Exam General: Pt is sitting on edge of bed with feet off bed. Pt appears fatigued. HEENT: Normocephalic, atraumatic.Pale conjunctivae. Oropharynx with moist mucosa. Neck: Supple with full range of motion. JVD present Cardiovascular: Regular rate and rhythm with systolic murmur auscultated Pulmonary: Decreased and coarse lung sounds bilaterally throughout. Increased work of breath with use of accessory muscles.Mild conversational dyspnea Abdomen: Bowel tones present. Soft, nontender. Extremities: 2-3+ pitting edema bilateral lower extremities, skin is very dry. Unable to palpate pulses on lower extremities due to edema. Skin: Normal temperature, no rash, ulcers, or subcutaneous nodules appreciated. Psychiatric: Normal mood and normal affect. Alert and oriented to person, place , and time IVs and Medications Medications Reviewed: Medications were reviewed in detail Lab and Diagnostics Result Diagram: 12/01/16 0610 12/01/16 0610 Microbiology Microbiology 11/29/16 Blood Culture - Preliminary, Resulted NO GROWTH AFTER 24 HOURS 11/30/16 Adenovirus DNA (PCR) - Final, Complete Not Detected 11/30/16 Coronavirus 229E PCR - Final, Complete Not Detected 11/30/16 Coronavirus HKU1 PCR - Final, Complete Not Detected 11/30/16 Coronavirus NL63 PCR - Final, Complete Not Detected 11/30/16 Coronavirus OC43 PCR - Final, Complete Not Detected 11/30/16 Influenza Type A (PCR) - Final, Complete Influenza A H3 11/30/16 Influenza Type B (PCR) - Final, Complete Not Detected 11/30/16 Human Metapneumovirus (PCR) (EDU) - Final, Complete Not Detected 11/30/16 Rhinovirus (PCR)(EDU) - Final, Complete Not Detected 11/30/16 Parainfluenza Virus Type 1 (PCR) - Final, Complete Not Detected 11/30/16 Parainfluenza Virus Type 2 (PCR) - Final, Complete Not Detected 11/30/16 Parainfluenza Virus Type 3 (PCR) - Final, Complete Not Detected 11/30/16 Parainfluenza Virus Type 4 (NAAT) - Final, Complete Not Detected 11/30/16 Respiratory Syncytial Virus (PCR)GA - Final, Complete Not Detected 11/30/16 Chlamydia pneumoniae (PCR) - Final, Complete Not Detected 11/30/16 Mycoplasma pneumoniae DNA Detection - Final, Complete X-Rays, CTs and MRIs PROCEDURE: X-RAY CHEST ONE VIEW, PORTABLE FINDINGS: Surgical changes and devices: None. Lungs and pleura: Small right-sided pleural fluid collection is unchanged compared to prior examination. Bibasilar lung opacities have decreased in size compared to prior examination. Right midlung pleural-based lesion is stable compared to prior examinations. Mild cephalization of pulmonary vasculature is noted suggesting CHF. Mediastinum: Mediastinal contours appear normal. Heart size is mildly enlarged. Bones and chest wall: No suspicious bony lesions. Overlying soft tissues appear unremarkable. IMPRESSION: 1. Mild cephalization of pulmonary vasculature suggesting CHF. Please correlate with clinical data. 2. Small right-sided pleural fluid collection is stable. 3. 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 He typically uses 5L O2 at home and uses nebulizer treatments. Acute COPD exacerbation, present on admission, ongoing - Pt presents with progressive shortness of breath at rest and with exertion, with productive cough. Presents with decreased lung sounds and prolonged expiratory phase. - CXR shows "bibasilar opacities decreased in size compared to 11/26/2016" - DuoNeb q4h while awake - Albuterol neb q2h PRN -Prednisone 40mg daily for 5 days. - Sputum cultures ordered -Levaquin being given -PCR positive for Influenza A -CXR today -Consider US guided thoracentesis Acute infection with Influenza A, ongoing -Pt believes he received the flu vaccine this season -Tamiflu started on 12/01/2016, will dose per dialysis Acute decompensated diastolic congestive heart failure exacerbation, present on admission, ongoing - Monitor on telemetry -Diuresing pt -US of abdomen---results pending -Cardiology has been consulted, we appreciate their input. Elevated troponin, acute on chronic. - Pt has chronically elevated troponin secondary to ESRD and likely chronic from severe mitral valve calcification - Monitor troponin End-stage renal disease on dialysis - Dialysis M/W/F as at home - Nephrology has been consulted. We appreciate their expertise -Underwent 2 hours ultrafiltration on 11/29/16 Urinary tract infection, present prior to admission. -Pt prescribed 10 day course of Levaquin [address] Pearce -Continue with abx Mitral valve vegetation, unknown chronicity - Echo 08/12/16 showed mitral valve vegetation - Blood cultures x2- no growth to date Tobacco use, chronic - Pt smokes over 1 pack per day. - Nicotine patch available - Pt counseled on smoking cessation. 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 NO INTUBATION. This was discussed with patient on 12/01/2016 Prophylaxis -DVT-SCDs and heparin, GI not indicated Resuscitation Status: Limited Interventions (cpr /shock/bipap ok, DNI ) Resuscitation Status: Limited Interventions Limited Interventions: Compressions, Cardioversion/Defibrillation, BiPAP Attending Statement The patient was seen and examined together with Dr. Lepe on 12/01/2016 and I agree with the history, exam and plan as outlined in the note above. Lesvia Lepe DO Dec 01, 2016 10:02 Bobby Siu MD Dec 02, 2016 09:50
--- NOTE | 2016-12-01 15:27 | DRSVH ---
PROCEDURE: US ABDOMEN, LIMITED ([id number]) INDICATIONS: assess for ascites TECHNIQUE: Real-time focused scanning was performed of the abdomen, with image documentation. COMPARISON: [facility], , ABDOMEN LTD, 08/13/2016, 15:19. FINDINGS: No evidence of ascites. IMPRESSION: No evidence of ascites. Dictated by: Jer Szymanski M.D. on 12/01/2016 at 15:25 Approved by: Jer Szymanski M.D. on 12/01/2016 at 15:25
--- NOTE | 2016-12-01 15:39 | DRSVH ---
PROCEDURE: X-RAY CHEST ONE VIEW, PORTABLE ([id number]) INDICATIONS: short of breath, +flu TECHNIQUE: One view of the chest was acquired. COMPARISON: [facility], CR, XR CHEST 1VW (PORTABLE), 11/29/2016, 13:39. FINDINGS: Surgical changes and devices: None. Lungs and pleura: There is a continued appearance of pulmonary edema. Bibasilar opacities are prese nt, although slightly less prominent. Mildly improved left pleural effusion. Mediastinum: Mediastinal contours appear normal. Heart size is enlarged. Bones and chest wall: No suspicious bony lesions. Overlying soft tissues appear unremarkable. IMPRESSION: Mild appearance of improvement in bibasilar opacities and effusion, as above. Dictated by: Zayra Olivas M.D. on 12/01/2016 at 15:37 Approved by: Zayra Olivas M.D. on 12/01/2016 at 15:37
[2016-12-01] MEDS: levoFLOXacin 250 mg Tablet PO SCH (21:22)
[2016-12-01] MEDS ORDERED: Sodium Chloride NAS 45 mL Spray NASAL PRN (22:25)
[2016-12-02] VITALS (11 sets, daily range): BP systolic 109–155; BP diastolic 73–89; PULSE 53–116; RESP 18–22; O2SAT 94–98
[2016-12-02] MEDS: Albuterol 2.5 mg/3 mL Inhalation Solution NEB SCH ×7 (01:04→20:57)
[2016-12-02] MEDS: Sodium Chloride LOK Flush 10 mL Syringe IVFLUSH SCH ×3 (01:36→18:09)
[2016-12-02] MEDS: Ipratropium HFA 200 Puff 12.9 Gm Inhaler INHALATION SCH ×4 (06:17→22:28)
[2016-12-02 06:36] LABS: EOSINOPHILS % (AUTO) 0 % (0-5); Mean Corpuscular Hemoglobin 27.5 pg (27.0-35.0); Platelet Count 83 bil/L (150-400)
--- NOTE | 2016-12-02 06:40 | NUR ---
Medications/Agitation: Pt has been upset with some of his medications and the scheduling of them. Pt was agitated most of the night and refused some of his medications. Pt remains AFib in the 110s primarily. Pt slept very little. Pt did apologize to staff this am. Pt up to the bathroom to try and defecate without success. Pt given senna. Will update oncoming staff.
[2016-12-02 07:57] LABS: MONOCYTES % (AUTO) 5 % (4-12); NEUTROPHILS % (AUTO) 86 % (40-74)
[2016-12-02 07:58] LABS: BASOPHILS % (AUTO) 0 % (0-3)
[2016-12-02] MEDS ORDERED: predniSONE 20 mg Tablet PO SCH (08:00)
[2016-12-02] MEDS: LORazepam 0.5 mg Tablet PO PRN ×2 (08:09→15:38)
[2016-12-02] MEDS: Heparin 5,000 Unit/mL Inj SUBQ SCH ×2 (08:30→20:30)
--- NOTE | 2016-12-02 13:03 | NUR ---
Palliative care note D/A: Chart reviewed, note that pt was seen by PC in 11/12. This worker is familiar with pt. Note that Catalina ([employer] [facility] [place] has been working with pt over past year to discuss possible follow up with outpt PC. Phone call to Catalina to discuss. She notes that pt continues to be a consistent participant in his dialysis. Pt condition has deteriorated somewhat in the last year. This worker recalls how much pt loved to drive and feel the wind in his face and chart notes indicate that pt has had to give up driving. Catalina confirms that he stopped driving a couple of months ago. She notes that pt has continued to politely decline OPC visist. Case discussed with Dr. Webber. This worker to attempt to meet with pt today to discuss PC visit. Attempted to meet with pt, sleeping. Fan blowing close to his face, large, gulping type breathing movements with mouth opening and closing for each breath. P: Palliative to continue to attempt to discuss today. Carley MATTHEWS CCM Addendum: 12/02/16 at 1432 by TUYET CERON Palliative care note amendment Dr. Webber has seen pt today. Pt agreeable at this time to DNR/DNI. Family arrived during provider consult. Dr. Webber to continue to work with pt and will discuss with him means to possibly assist him with symptom management. Carley MATTHEWS [facility]
--- NOTE | 2016-12-02 14:11 | PCM.CONPAL ---
Date of Service Dec 02, 2016 Date of Hospital Admission: Nov 29, 2016 at 18:16 Date of Palliative Consult: Dec 02, 2016 Requesting Provider: Lesvia Lepe DO Reason Palliative Care Consult: Goals of Care Discussion Hospital Unit @time of consult: Medical/Pediatric Care Palliative Care Recommendation 71-year-old gentleman with end-stage COPD as well as ESRD on hemodialysis, with progressive valvular heart disease, admitted with worsening weakness and dyspnea and evidence of acute on chronic respiratory failure. Palliative medicine consult to assist with determination of goals of care. Summary of palliative recommendations: -Symptom management (Pain/other)- continued management per hospitalist service. Consider trial of inhaled fentanyl which gave him good symptomatic relief in the past (as patient's CODE STATUS has now been changed to DO NOT RESUSCITATE/ DO NOT INTUBATE, less concerned about respiratory suppression with inhaled opioid). Will review with patient and his family and proceed if they request it. -DPOA/Advanced Directives/POLST- reviewed in detail with patient. As a consequence of our conversation, CODE STATUS updated to DO NOT RESUSCITATE/DO NOT INTUBATE. Patient and family not willing to proceed to comfort care at this time, pending further input of his cardiology team. -Family/emotional support- good support from his and son arrived while I was visiting with him today. Answered questions they had and outlined treatment plan. Patient Goals: 1. Patient and family want to be told the truth about his illness, even if it is unpleasant. 2. Patient and family would like to be told prognosis when it can be predicted, to better guide treatment decisions. Additional Medical Diagnoses with primary management by Hospitalist team include : Acute COPD exacerbation, present on admission, ongoing Acute infection with Influenza A, ongoing Acute decompensated diastolic congestive heart failure exacerbation, present on admission, ongoing Elevated troponin, acute on chronic. End-stage renal disease on dialysis Urinary tract infection, present prior to admission. 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 Advanced Care Planning Address: Code status change Pain: None Symptom management: Depression, Anxiety, Dyspnea Pt History History of Present Illness 71-year-old patient with end-stage lung disease, chronic home oxygen, end-stage renal disease on hemodialysis, severe mitral and aortic valve stenosis as well as right heart failure, presenting with progressive weakness, lack of energy and dyspnea, readmitted with acute on chronic respiratory failure. He relates a history of steady progressive deterioration since at least July,, which he feels is primarily on the basis of his progressive cardiac disease. He has been seen by cardiology with consultation recommendations pending. He has also been seen by Dr. Pearce of nephrology who has been supervising dialysis. Palliative medicine was consulted in order to review goals of care and wishes for advanced interventions. Patient had previously been seen by the palliative medicine service in 11/12 at which time CODE STATUS was determined to be DO NOT RESUSCITATE/DO NOT INTUBATE. Since that time he modified his wishes, and has requested CPR/defibrillation but has continued to refuse BiPAP, intubation or mechanical ventilation. Prior to visiting, reviewed his records in the EMR in detail dating back to 2014. On my arrival, he is a fatigued, depressed appearing man lying in bed. Mild- moderate respiratory distress is evident. He was awake and alert however. We spoke at length, reviewing his status in particular over the last 6 months and his perceived gradual deterioration. He admits to being depressed about the intractable nature of his illness, but says that he does not wish to be labeled as "depressed" because then "they will take my guns away". In addition to his dyspnea, he complains of severe lack of energy, to the degree that he cannot even get out of bed on his own anymore. 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 Surgical History Ureter surgeries in 2006 Knee surgery Bilateral cataract surgery AV fistula on left arm Dual lumen dialysis catheter on right chest Social History 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: [employer]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 and 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 Family Members Issues: Appropriate concern at his progressive decline Living Situation: Living at home with his ; son lives in separate quarters on the same property Palliative Performance Scale PPS Patient Status: Baseline PPS Ambulation: Mainly Bed PPS Activity: Unable to do any activity PPS Self-Care: Occasional assistance necessary PPS Intake: Normal or reduced PPS Conscious Level: Full or confusion Performance Scale: 40% ADLs ADL Patient Status: Baseline ADL Ambulation: Mainly Bed ADL Dressing: Considerable assistance required ADL Feeding: Occasional assistance necessary ADL Hygene/bathing: Occasional assistance necessary ADL Transfers: Occasional assistance necessary Allergy Allergies Reviewed: Yes Medications Current Medications: Current Medications Non-Formulary Medication 50,000 unit WEEKLY PO; Start 12/06/16 at 08:30; Status UNV Ergocalciferol 50,000 unit WEEKLY PO; Start 12/03/16 at 08:30 Prednisone 40 mg DAILYWM PO Last administered on 12/01/16 21:37; Admin Dose 40 MG; Start 12/01/16 at 08:00; Stop 12/02/16 at 04:54; Status DC Vitamin B Complex/ Vitamin C 1 tablet DAILY PO Last administered on 11/30/16 22: 39; Admin Dose 1 TABLET; Start 11/30/16 at 22:12; Stop 12/02/16 at 10:23; Status DC Levofloxacin 250 mg 11 PO; Start 11/30/16 at 22:13; Status Cancel Levofloxacin 250 mg HS PO Last administered on 12/01/16 21:22; Admin Dose 250 MG ; Start 11/30/16 at 22:30 Metoprolol Tartrate 2.5 mg Q5MIN PRN IVPUSH; Start 12/01/16 at 02:15 Sodium Chloride 2 spray PRN PRN NASAL; Start 12/01/16 at 22:25 Prednisone 40 mg DAILYWM PO; Start 12/02/16 at 08:00; Stop 12/02/16 at 10:23; Status DC Metoprolol Succinate 25 mg DAILY@20 PO; Start 12/02/16 at 20:00 Vitamin B Complex/ Vitamin C 1 tablet DAILY@20 PO; Start 12/02/16 at 20:00 Prednisone 40 mg DAILYWM@20 PO; Start 12/02/16 at 20:00; Stop 12/05/16 at 20:01 Scheduled Ergocalciferol (Vitamin D2) (Vitamin D2) 2,000 Unit Tablet 50,000 UNIT PO WEEKLY Furosemide (Furosemide) 80 Mg Tab 240 MG PO BID Ipratropium [place] (Atrovent HFA) 200 Puff/12.9 Gm Inhaler 2 PUFF INH QID Levofloxacin (Levofloxacin) 500 Mg Tablet 250 MG PO DAILY Levothyroxine (Levothyroxine) 100 Mcg Tablet 100 MCG PO HS Melatonin/Pyridoxine (Melatonin 3 mg Tablet) 1 Each Tablet 20 MG PO HS Metoprolol Succinate ER (Metoprolol Succinate ER) 25 Mg Tab.er.24h 25 MG PO D Midodrine (Midodrine) 5 Mg Tablet 5 MG PO BEFORE DIALYSIS Prednisone (PredniSONE) 5 Mg Tab 5 MG PO DAILY Vitamin B Complex/Vit C (Viviana-Belen Tablet) 1 Tab Tab 1 TAB PO DAILY Scheduled PRN Albuterol Sulfate (Ventolin HFA Inhaler) 200 Puff/18 Gm Inhaler 2 PUFF INH Q4 PRN PRN For Wheezing Clobetasol Propionate (Clobetasol Propionate) 50 Ml Solution 1 APPLIC TOPICAL DAILY PRN PRN psoriasis Sevelamer Carbonate (Renvela) 800 Mg Tablet 800 MG PO TID PRN PRN For Indigestion PT TAKES MED EVERY TIME HE EATS ANYTHING Objective Findings Exam Vital Sign - Last Date Time Temp Pulse Resp B/P Pulse Ox O2 Delivery O2 Flow Rate FiO2 12/02/16 10:47 104 12/02/16 10:30 36.3 20 109/76 96 Nasal Cannula 5.00 Intake and Output 12/01/16 12/01/16 12/02/16 Cumulative From/Thru 15:00 23:00 07:00 11/29/16 13:39 - 12/01/16 21:20 Intake Total 910 ml 2360 ml Output Total 1500 ml 0 ml 7000 ml Balance -1500 ml 910 ml -4640 ml Intake Oral 900 ml 2350 ml IV Total 10 ml 10 ml Output Urine Total 0 ml 0 ml Ultrafiltrate 1500 ml 7000 ml # Bowel Movements 1 2 Objective Frail gentleman lying in bed, moderate respiratory distress. Vital signs noted. Skin bronzed consistent with long-term dialysis. HEENT exam without acute focal findings. Lungs with diminished breath sounds diffusely but no wheezes. Heart tones regular with prominent systolic and diastolic murmurs. Abdomen rounded and nontender. No ultrasound does not show any evidence of ascites. Extremities with diffuse edema. Psoriatic skin changes diffusely as well as venous stasis changes. Lab/Diagnostics Lab and Imaging results reviewed in detail in EMR. Time spent Total time 70 minutes; >50% face to face with patient and family, providing counselling regarding plans and recommendations, and in care coordination with his medical teams. Of the above total time, 15 minutes counseling for advanced care planning with the patient, reviewing and updating code status. Kendrick Webber MD Dec 02, 2016 14:11
--- NOTE | 2016-12-02 14:20 | NUR ---
Telemetry Clarification: Sinus Rhythm Patient Sinus Rhythm 100-120s with a First Degree HB, PACs and PVC pairs. Patient has been Sinus Rhythm since admit with no Afib present. TERI Ingram aware. Addendum: 12/02/16 at 1446 by REE DAWSON Correction: TERI Sosa aware.
--- NOTE | 2016-12-02 14:40 | PCM.PNMED ---
Subjective Date of Service Dec 02, 2016 Subjective Patient reports that he feels terrible this morning. Pt states that he feels very fatigued and weak. Pt states that he feels very short of breath constantly and feels that it is not improving. Pt also reports that his chest feels cold "like a block of ice in my chest". Pt has fan blowing on his face, but states he needs this on to help him breath, and notes that the rest of his body does not feel cold. Pt reports weakness with no improvement. Pt reports that he is constipated, and nausea but denies any vomiting. Pt again expresses frustration at his care, and reports that he will not take his medications if he doesn't feel they are helping. Exam Vital Signs Vital Sign - Last Date Time Temp Pulse Resp B/P Pulse Ox O2 Delivery O2 Flow Rate FiO2 12/02/16 07:18 107 22 94 Nasal Cannula 5.00 12/02/16 04:38 35.8 155/89 Intake and Output 12/01/16 12/01/16 12/02/16 Cumulative From/Thru 14:59 22:59 06:59 11/29/16 13:39 - 12/01/16 21:20 Intake Total 910 ml 2360 ml Output Total 1500 ml 0 ml 7000 ml Balance -1500 ml 910 ml -4640 ml Intake Oral 900 ml 2350 ml IV Total 10 ml 10 ml Output Urine Total 0 ml 0 ml Ultrafiltrate 1500 ml 7000 ml # Bowel Movements 1 2 Exam General: Pt is sitting on edge of bed with feet off bed. Pt appears fatigued but improved from previous day HEENT: Normocephalic, atraumatic.Pale conjunctivae. Oropharynx with moist mucosa. Neck: Supple with full range of motion. JVD present Cardiovascular: Regular rate and rhythm with systolic murmur auscultated Pulmonary: Decreased and coarse lung sounds bilaterally throughout. Increased work of breath with use of accessory muscles.Mild conversational dyspnea Abdomen: Bowel tones present. Soft, nontender. Extremities: 2-3+ pitting edema bilateral lower extremities, skin is very dry. Unable to palpate pulses on lower extremities due to edema. Skin: Normal temperature, no rash, ulcers, or subcutaneous nodules appreciated. Psychiatric: Normal mood and normal affect. Alert and oriented to person, place , and time IVs and Medications Medications Reviewed: Medications were reviewed in detail Lab and Diagnostics Result Diagram: 12/01/16 0610 12/02/16 0605 Microbiology Microbiology 11/29/16 Blood Culture - Preliminary, Resulted NO GROWTH AFTER 24 HOURS 11/30/16 Adenovirus DNA (PCR) - Final, Complete Not Detected 11/30/16 Coronavirus 229E PCR - Final, Complete Not Detected 11/30/16 Coronavirus HKU1 PCR - Final, Complete Not Detected 11/30/16 Coronavirus NL63 PCR - Final, Complete Not Detected 11/30/16 Coronavirus OC43 PCR - Final, Complete Not Detected 11/30/16 Influenza Type A (PCR) - Final, Complete Influenza A H3 11/30/16 Influenza Type B (PCR) - Final, Complete Not Detected 11/30/16 Human Metapneumovirus (PCR) (EDU) - Final, Complete Not Detected 11/30/16 Rhinovirus (PCR)(EDU) - Final, Complete Not Detected 11/30/16 Parainfluenza Virus Type 1 (PCR) - Final, Complete Not Detected 11/30/16 Parainfluenza Virus Type 2 (PCR) - Final, Complete Not Detected 11/30/16 Parainfluenza Virus Type 3 (PCR) - Final, Complete Not Detected 11/30/16 Parainfluenza Virus Type 4 (NAAT) - Final, Complete Not Detected 11/30/16 Respiratory Syncytial Virus (PCR)[place] - Final, Complete Not Detected 11/30/16 Chlamydia pneumoniae (PCR) - Final, Complete Not Detected 11/30/16 Mycoplasma pneumoniae DNA Detection - Final, Complete X-Rays, CTs and MRIs PROCEDURE: X-RAY CHEST ONE VIEW, PORTABLE FINDINGS: Surgical changes and devices: None. Lungs and pleura: Small right-sided pleural fluid collection is unchanged compared to prior examination. Bibasilar lung opacities have decreased in size compared to prior examination. Right midlung pleural-based lesion is stable compared to prior examinations. Mild cephalization of pulmonary vasculature is noted suggesting CHF. Mediastinum: Mediastinal contours appear normal. Heart size is mildly enlarged. Bones and chest wall: No suspicious bony lesions. Overlying soft tissues appear unremarkable. IMPRESSION: 1. Mild cephalization of pulmonary vasculature suggesting CHF. Please correlate with clinical data. 2. Small right-sided pleural fluid collection is stable. 3. 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 He typically uses 5L O2 at home and uses nebulizer treatments. Acute COPD exacerbation, present on admission, ongoing - Pt presents with progressive shortness of breath at rest and with exertion, with productive cough. Presents with decreased lung sounds and prolonged expiratory phase. - CXR shows "bibasilar opacities decreased in size compared to 11/26/2016" - DuoNeb q4h while awake - Albuterol neb q2h PRN -Prednisone 40mg daily for 5 days. - Sputum cultures ordered -Levaquin being given -PCR positive for Influenza A -CXR (12/01/16) -showing improved opacities and effusion -Consider US guided thoracentesis if there is concern regarding worsening effusions Acute infection with Influenza A, ongoing -Pt believes he received the flu vaccine this season -Tamiflu started on 12/01/2016, will dose per dialysis Acute decompensated diastolic congestive heart failure exacerbation, present on admission, ongoing - Monitor on telemetry -Diuresing pt -US of abdomen did not demonstrate evidence of ascites -Cardiology does not feel there is anything that they can do for the patient at this time Elevated troponin, acute on chronic. - Pt has chronically elevated troponin secondary to ESRD and likely chronic from severe mitral valve calcification - Monitor troponin End-stage renal disease on dialysis - Dialysis M/W/F as at home - Nephrology has been consulted. We appreciate their expertise -Underwent 2 hours ultrafiltration on 11/29/16 -Has undergone dialysis daily for past 3 days.No dialysis today Urinary tract infection, present prior to admission. -Pt prescribed 10 day course of Levaquin [address] Pearce -Continue with abx Mitral valve vegetation, unknown chronicity - Echo 08/12/16 showed mitral valve vegetation - Blood cultures x2- no growth to date Tobacco use, chronic - Pt smokes over 1 pack per day. - Nicotine patch available - Pt counseled on smoking cessation. 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 NO INTUBATION. This was discussed with patient on 12/01/2016 Prophylaxis -DVT-SCDs and heparin, GI not indicated Resuscitation Status: Limited Interventions (cpr /shock/bipap ok, DNI ) Resuscitation Status: Limited Interventions Limited Interventions: Compressions, Cardioversion/Defibrillation, BiPAP Attending Statement The patient was seen and examined together with Dr. Lepe on 12/02/2015 and I agree with the history, exam and plan as outlined in the note above. Lesvia Lepe DO Dec 02, 2016 07:34 Bobby Siu MD Dec 03, 2016 10:12
--- NOTE | 2016-12-02 16:01 | NUR ---
SOB Pt c/o of SOB with oxygen 5L NC, and general malaise. Pt stated, "I just don't feel like I can make it today." Gave Ativan, with moderate relief.
--- NOTE | 2016-12-02 16:23 | PCM.PNMED ---
Subjective Date of Service Dec 02, 2016 Subjective The patient states he does not feel any improvement he appears to be in less respiratory distress and have less conversational dyspnea. Exam Vital Signs Vital Sign - Last Date Time Temp Pulse Resp B/P Pulse Ox O2 Delivery O2 Flow Rate FiO2 12/02/16 15:09 58 22 95 Nasal Cannula 5.00 12/02/16 14:30 35.7 122/73 Intake and Output 12/01/16 12/01/16 12/02/16 Cumulative From/Thru 15:00 23:00 07:00 11/29/16 13:39 - 12/01/16 21:20 Intake Total 910 ml 2360 ml Output Total 1500 ml 0 ml 7000 ml Balance -1500 ml 910 ml -4640 ml Intake Oral 900 ml 2350 ml IV Total 10 ml 10 ml Output Urine Total 0 ml 0 ml Ultrafiltrate 1500 ml 7000 ml # Bowel Movements 1 2 Exam Neck is supple with some mild jugular venous distention at 90. Lungs are showing some scattered end expiratory wheezes in both lung viveros. Heart is regular and rhythmical with a soft systolic murmur and a diastolic component. Abdomen soft without any tenderness rebound guarding masses or hepatosplenomegaly. 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 Lab and Diagnostics Result Diagram: 12/02/16 0612/02/16 06 Microbiology Microbiology 11/29/16 Blood Culture - Preliminary, Resulted NO GROWTH AFTER 24 HOURS 11/30/16 Adenovirus DNA (PCR) - Final, Complete Not Detected 11/30/16 Coronavirus 229E PCR - Final, Complete Not Detected 11/30/16 Coronavirus HKU1 PCR - Final, Complete Not Detected 11/30/16 Coronavirus NL63 PCR - Final, Complete Not Detected 11/30/16 Coronavirus OC43 PCR - Final, Complete Not Detected 11/30/16 Influenza Type A (PCR) - Final, Complete Influenza A H3 11/30/16 Influenza Type B (PCR) - Final, Complete Not Detected 11/30/16 Human Metapneumovirus (PCR) (EDU) - Final, Complete Not Detected 11/30/16 Rhinovirus (PCR)(EDU) - Final, Complete Not Detected 11/30/16 Parainfluenza Virus Type 1 (PCR) - Final, Complete Not Detected 11/30/16 Parainfluenza Virus Type 2 (PCR) - Final, Complete Not Detected 11/30/16 Parainfluenza Virus Type 3 (PCR) - Final, Complete Not Detected 11/30/16 Parainfluenza Virus Type 4 (NAAT) - Final, Complete Not Detected 11/30/16 Respiratory Syncytial Virus (PCR)[place] - Final, Complete Not Detected 11/30/16 Chlamydia pneumoniae (PCR) - Final, Complete Not Detected 11/30/16 Mycoplasma pneumoniae DNA Detection - Final, Complete X-Rays, CTs and MRIs PROCEDURE: X-RAY CHEST ONE VIEW, PORTABLE FINDINGS: Surgical changes and devices: None. Lungs and pleura: Small right-sided pleural fluid collection is unchanged compared to prior examination. Bibasilar lung opacities have decreased in size compared to prior examination. Right midlung pleural-based lesion is stable compared to prior examinations. Mild cephalization of pulmonary vasculature is noted suggesting CHF. Mediastinum: Mediastinal contours appear normal. Heart size is mildly enlarged. Bones and chest wall: No suspicious bony lesions. Overlying soft tissues appear unremarkable. IMPRESSION: 1. Mild cephalization of pulmonary vasculature suggesting CHF. Please correlate with clinical data. 2. Small right-sided pleural fluid collection is stable. 3. Bibasilar opacities decreased in size compared to 11/26/2016 Dictated by: Sandra Crum MD, PhD on 11/29/2016 at 14:36 Approved by: Sandra Crum MD, PhD on 11/29/2016 at 14:36 Assessment & Plan Impression #1 end-stage renal disease dialysis dependent #2 severe biventricular congestive heart failure #3 influenza #4 COPD Recommendations #1 I will make recommendations for his dialysis in the morning. Resuscitation Status: Limited Interventions Limited Interventions: Compressions, Cardioversion/Defibrillation, BiPAP Ap Pearce DO Dec 02, 2016 16:23
[2016-12-02] MEDS: levoFLOXacin 250 mg Tablet PO SCH (20:01)
[2016-12-02] MEDS: Vitamin B Complex/Vit C Tablet PO SCH (20:01)
[2016-12-02] MEDS: predniSONE 20 mg Tablet PO SCH (20:01)
[2016-12-02] MEDS: MeTOProlol XL 25 mg ER24 Tablet PO SCH (20:01)
[2016-12-03] VITALS (10 sets, daily range): BP systolic 101–129; BP diastolic 61–82; PULSE 65–106; RESP 16–24; O2SAT 92–99
[2016-12-03] MEDS: Sodium Chloride LOK Flush 10 mL Syringe IVFLUSH SCH ×3 (00:32→17:33)
[2016-12-03] MEDS: LORazepam 0.5 mg Tablet PO PRN ×2 (02:53→21:46)
[2016-12-03] MEDS: Albuterol 2.5 mg/3 mL Inhalation Solution NEB SCH ×2 (04:30→07:19)
[2016-12-03 07:09] LABS: Mean Corpuscular Hemoglobin 27.8 pg (27.0-35.0); Mean Corpuscular Volume 90.2 fL (81-100); Platelet Count 95 bil/L (150-400)
[2016-12-03] MEDS ORDERED: Ergocalciferol (Vit D2) 50,000 Unit Capsule PO SCH (08:30)
[2016-12-03] MEDS: Heparin 5,000 Unit/mL Inj SUBQ SCH ×2 (08:30→20:30)
[2016-12-03 08:34] LABS: BASOPHILS % (AUTO) 0 % (0-3); EOSINOPHILS % (AUTO) 1 % (0-5); MONOCYTES % (AUTO) 5 % (4-12); NEUTROPHILS % (AUTO) 80 % (40-74)
[2016-12-03] MEDS: Ipratropium HFA 200 Puff 12.9 Gm Inhaler INHALATION SCH ×4 (10:08→21:47)
--- NOTE | 2016-12-03 12:29 | PCM.PNMED ---
Subjective Date of Service Dec 03, 2016 Subjective Patient seems to be a little bit less respiratory distress and overall seems to be showing some slight improvement. Still has conversational dyspnea. Appears to be much less than previous examinations. Has a dry nonproductive cough. Exam Vital Signs Vital Sign - Last Date Time Temp Pulse Resp B/P Pulse Ox O2 Delivery O2 Flow Rate FiO2 12/03/16 10:16 36.3 93 20 123/81 99 Nasal Cannula 5.00 Intake and Output 12/02/16 12/02/16 12/03/16 Cumulative From/Thru 15:00 23:00 07:00 11/29/16 13:39 - 12/03/16 06:32 Intake Total 600 ml 640 ml 770 ml 4370 ml Output Total 0 ml 0 ml 0 ml 7000 ml Balance 600 ml 640 ml 770 ml -2630 ml Intake Oral 600 ml 640 ml 770 ml 4360 ml IV Total 10 ml Output Urine Total 0 ml 0 ml 0 ml 0 ml Ultrafiltrate 7000 ml # Bowel Movements 0 2 Exam Neck is supple without adenopathy thyromegaly or jugular venous distention. Lungs demonstrated diffuse end expiratory wheezes and scattered rhonchi. Heart was irregularly irregular. Abdomen was distended but no tenderness rebound guarding masses or hepatosplenomegaly was noted. Extremities showed some persistent chronic lower extremity edema. Lab and Diagnostics Result Diagram: 12/03/16 0615 12/03/16 0940 Microbiology Microbiology 11/29/16 Blood Culture - Preliminary, Resulted NO GROWTH AFTER 24 HOURS 11/30/16 Adenovirus DNA (PCR) - Final, Complete Not Detected 11/30/16 Coronavirus 229E PCR - Final, Complete Not Detected 11/30/16 Coronavirus HKU1 PCR - Final, Complete Not Detected 11/30/16 Coronavirus NL63 PCR - Final, Complete Not Detected 11/30/16 Coronavirus OC43 PCR - Final, Complete Not Detected 11/30/16 Influenza Type A (PCR) - Final, Complete Influenza A H3 11/30/16 Influenza Type B (PCR) - Final, Complete Not Detected 11/30/16 Human Metapneumovirus (PCR) (EDU) - Final, Complete Not Detected 11/30/16 Rhinovirus (PCR)(EDU) - Final, Complete Not Detected 11/30/16 Parainfluenza Virus Type 1 (PCR) - Final, Complete Not Detected 11/30/16 Parainfluenza Virus Type 2 (PCR) - Final, Complete Not Detected 11/30/16 Parainfluenza Virus Type 3 (PCR) - Final, Complete Not Detected 11/30/16 Parainfluenza Virus Type 4 (NAAT) - Final, Complete Not Detected 11/30/16 Respiratory Syncytial Virus (PCR)[place] - Final, Complete Not Detected 11/30/16 Chlamydia pneumoniae (PCR) - Final, Complete Not Detected 11/30/16 Mycoplasma pneumoniae DNA Detection - Final, Complete X-Rays, CTs and MRIs PROCEDURE: X-RAY CHEST ONE VIEW, PORTABLE FINDINGS: Surgical changes and devices: None. Lungs and pleura: Small right-sided pleural fluid collection is unchanged compared to prior examination. Bibasilar lung opacities have decreased in size compared to prior examination. Right midlung pleural-based lesion is stable compared to prior examinations. Mild cephalization of pulmonary vasculature is noted suggesting CHF. Mediastinum: Mediastinal contours appear normal. Heart size is mildly enlarged. Bones and chest wall: No suspicious bony lesions. Overlying soft tissues appear unremarkable. IMPRESSION: 1. Mild cephalization of pulmonary vasculature suggesting CHF. Please correlate with clinical data. 2. Small right-sided pleural fluid collection is stable. 3. Bibasilar opacities decreased in size compared to 11/26/2016 Dictated by: Sandra Crum MD, PhD on 11/29/2016 at 14:36 Approved by: Sandra Crum MD, PhD on 11/29/2016 at 14:36 Assessment & Plan Impression #1 end-stage renal disease dialysis dependent #2 severe biventricular congestive heart failure #3 influenza #4 COPD Recommendations #1 patient to be dialyzed today for 4 hours on a 2 potassium bath. I would like to take her approximately 2-3 L of fluid off of him. Resuscitation Status: Limited Interventions Limited Interventions: Compressions, Cardioversion/Defibrillation, BiPAP Ap Pearce DO Dec 03, 2016 12:29
--- NOTE | 2016-12-03 13:19 | NUR ---
DIALYSIS/BM P- Patient didn't get dialysis Wednesday, K+ 5.9, has not had BM for two days. I- Patient taken to inpatient dialysis today at 1230, report given to [facility] CHARGE Lilly WILLIAMSON. Patient given laxatives this am. E- Patient had large BM today just prior to dialysis.
--- NOTE | 2016-12-03 14:26 | PCM.PNMED ---
Subjective Date of Service Dec 03, 2016 Subjective Patient reports that he has not been sleeping at all overnight. He reports that he feels weaker than yesterday. He feels that his breathing is about the same, with no significant improvement or worsening. Pt denies any fevers, chills, nausea or vomiting. Pt reports that he has been very constipated and that the medication has not been helping this issue. Exam Vital Signs Vital Sign - Last Date Time Temp Pulse Resp B/P Pulse Ox O2 Delivery O2 Flow Rate FiO2 12/03/16 07:20 90 22 96 Nasal Cannula 6.00 12/03/16 06:12 35.9 128/82 Intake and Output 12/02/16 12/02/16 12/03/16 Cumulative From/Thru 15:00 23:00 07:00 11/29/16 13:39 - 12/03/16 06:32 Intake Total 600 ml 640 ml 770 ml 4370 ml Output Total 0 ml 0 ml 0 ml 7000 ml Balance 600 ml 640 ml 770 ml -2630 ml Intake Oral 600 ml 640 ml 770 ml 4360 ml IV Total 10 ml Output Urine Total 0 ml 0 ml 0 ml 0 ml Ultrafiltrate 7000 ml # Bowel Movements 0 2 Exam General: Pt is sitting on edge of bed with right leg hanging off bed. Pt appears fatigued but improved from previous day. HEENT: Normocephalic, atraumatic.Pale conjunctivae. Oropharynx with moist mucosa. Neck: Supple with full range of motion. JVD present Cardiovascular: Regular rate and rhythm with systolic murmur auscultated Pulmonary: Decreased and coarse lung sounds bilaterally throughout( improved from previous day,less coarse) continued work of breathing with use of accessory muscles.Mild conversational dyspnea-mildly improved from previous day Abdomen: Bowel tones present. Soft, nontender. Extremities: 2+ pitting edema bilateral lower extremities, skin is very dry. Unable to palpate pulses on lower extremities due to edema. Skin: Normal temperature, no rash, ulcers, or subcutaneous nodules appreciated. Psychiatric: Normal mood and normal affect. Alert and oriented to person, place , and time IVs and Medications Medications Reviewed: Medications were reviewed in detail Lab and Diagnostics Result Diagram: 12/02/16 0612/02/16 06 Microbiology Microbiology 11/29/16 Blood Culture - Preliminary, Resulted NO GROWTH AFTER 24 HOURS 11/30/16 Adenovirus DNA (PCR) - Final, Complete Not Detected 11/30/16 Coronavirus 229E PCR - Final, Complete Not Detected 11/30/16 Coronavirus HKU1 PCR - Final, Complete Not Detected 11/30/16 Coronavirus NL63 PCR - Final, Complete Not Detected 11/30/16 Coronavirus OC43 PCR - Final, Complete Not Detected 11/30/16 Influenza Type A (PCR) - Final, Complete Influenza A H3 11/30/16 Influenza Type B (PCR) - Final, Complete Not Detected 11/30/16 Human Metapneumovirus (PCR) (EDU) - Final, Complete Not Detected 11/30/16 Rhinovirus (PCR)(EDU) - Final, Complete Not Detected 11/30/16 Parainfluenza Virus Type 1 (PCR) - Final, Complete Not Detected 11/30/16 Parainfluenza Virus Type 2 (PCR) - Final, Complete Not Detected 11/30/16 Parainfluenza Virus Type 3 (PCR) - Final, Complete Not Detected 11/30/16 Parainfluenza Virus Type 4 (NAAT) - Final, Complete Not Detected 11/30/16 Respiratory Syncytial Virus (PCR)[place] - Final, Complete Not Detected 11/30/16 Chlamydia pneumoniae (PCR) - Final, Complete Not Detected 11/30/16 Mycoplasma pneumoniae DNA Detection - Final, Complete X-Rays, CTs and MRIs PROCEDURE: X-RAY CHEST ONE VIEW, PORTABLE FINDINGS: Surgical changes and devices: None. Lungs and pleura: Small right-sided pleural fluid collection is unchanged compared to prior examination. Bibasilar lung opacities have decreased in size compared to prior examination. Right midlung pleural-based lesion is stable compared to prior examinations. Mild cephalization of pulmonary vasculature is noted suggesting CHF. Mediastinum: Mediastinal contours appear normal. Heart size is mildly enlarged. Bones and chest wall: No suspicious bony lesions. Overlying soft tissues appear unremarkable. IMPRESSION: 1. Mild cephalization of pulmonary vasculature suggesting CHF. Please correlate with clinical data. 2. Small right-sided pleural fluid collection is stable. 3. 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 He typically uses 5L O2 at home and uses nebulizer treatments. Acute COPD exacerbation, present on admission, ongoing - Pt presents with progressive shortness of breath at rest and with exertion, with productive cough. Presents with decreased lung sounds and prolonged expiratory phase. - CXR shows "bibasilar opacities decreased in size compared to 11/26/2016" - DuoNeb q4h discontinued as pt prefers to use inhalers. - Albuterol neb q2h PRN -Prednisone 40mg daily for 5 day course - Sputum cultures ordered -Levaquin being given -PCR positive for Influenza A -CXR (12/01/16) -showing improved opacities and effusion Acute infection with Influenza A, ongoing -Pt believes he received the flu vaccine this season -Tamiflu started on 12/01/2016, will dose per dialysis Acute decompensated diastolic congestive heart failure exacerbation, present on admission, ongoing - Monitor on telemetry -Diuresing pt -US of abdomen did not demonstrate evidence of ascites -Cardiology will see patient to discuss prognosis and treatment options, we appreciate their input and guidance. Elevated troponin, acute on chronic. - Pt has chronically elevated troponin secondary to ESRD and likely chronic from severe mitral valve calcification - Monitor troponin End-stage renal disease on dialysis - Dialysis M/W/F as at home - Nephrology has been consulted. We appreciate their expertise -Underwent 2 hours ultrafiltration on 11/29/16 -Dialysis today Urinary tract infection, present prior to admission. -Pt prescribed 10 day course of Levaquin [address] Pearce -Continue with abx Mitral valve vegetation, unknown chronicity - Echo 08/12/16 showed mitral valve vegetation - Blood cultures x2- no growth to date Tobacco use, chronic - Pt smokes over 1 pack per day. - Nicotine patch available - Pt counseled on smoking cessation. 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 Resuscitation Status: DNR/DNI:Do Not Resuscitate/Intubate Attending Statement The patient was seen and examined together with Dr. Lepe on 12/03/2016 and I agree with the history, exam and plan as outlined in the note above. Lesvia Lepe DO Dec 03, 2016 08:13 Bobby Siu MD Dec 04, 2016 10:09
--- NOTE | 2016-12-03 15:58 | PCM.PALLBR ---
Palliative Care Recommendation 71-year-old gentleman with end-stage COPD as well as ESRD on hemodialysis, with progressive valvular heart disease, admitted with worsening weakness and dyspnea and evidence of acute on chronic respiratory failure. Palliative medicine consult to assist with determination of goals of care. Summary of palliative recommendations: -Symptom management (Pain/other)- continued management per hospitalist service. Consider trial of inhaled fentanyl which gave him good symptomatic relief in the past (as patient's CODE STATUS has now been changed to DO NOT RESUSCITATE/ DO NOT INTUBATE, less concerned about respiratory depression with inhaled opioid ). -DPOA/Advanced Directives/POLST- reviewed in detail with patient. As a consequence of our conversation, CODE STATUS updated to DO NOT RESUSCITATE/DO NOT INTUBATE. Patient and family not willing to proceed to comfort care at this time, pending further input of his cardiology team. -Family/emotional support- good support from his and son Patient Goals: 1. Patient and family want to be told the truth about his illness, even if it is unpleasant. 2. Patient and family would like to be told prognosis when it can be predicted, to better guide treatment decisions. Additional Medical Diagnoses with primary management by Hospitalist team include : Acute COPD exacerbation, present on admission, ongoing Acute infection with Influenza A, ongoing Acute decompensated diastolic congestive heart failure exacerbation, present on admission, ongoing Elevated troponin, acute on chronic. End-stage renal disease on dialysis Urinary tract infection, present prior to admission. Mitral valve vegetation, unknown chronicity Tobacco use, chronic Hypothyroidism, chronic Hypertension, chronic 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 Problems: End of Life Preferences DO NOT RESUSCITATE/DO NOT INTUBATE Goals of Care Patient continues to hope for recovery and returned home, but is beginning to realize that he is nearing end-of-life and that symptoms may not improve significantly Disposition To be determined Resuscitation Status Resuscitation Status: DNR/DNI:Do Not Resuscitate/Intubate Limited Interventions: Compressions, Cardioversion/Defibrillation, BiPAP Total time 30 minutes; >50% face to face with patient , providing counselling regarding plans and recommendations, and in care coordination with his medical teams, including his high school foreign language tutor. Palliative Brief Note Date of Service Dec 03, 2016 . Returned to reevaluate patient. Prior to visiting, reviewed updated records in the EMR and spoke with his nurse. Spoke with his high school foreign language tutor Dr. Woods, who noted that she had nothing further to offer from a cardiology standpoint. She planned on visiting the patient later in the day to provide this information to him. Patient and his had told me yesterday that further decisions regarding his ongoing care depended on what his high school foreign language tutor would tell him. [place] [facility] [place] He was asleep but awakened easily. Noted his breathing was perhaps slightly better. Remains quite fatigued. Denied any chest or abdominal pain. On exam, skin is bronzed-appearing. Vitals noted- some hypotension on dialysis. Lungs with dependent crackles, no wheezes. Heart sounds irregular. Prominent murmurs as before. Abdomen rounded nontender. Diminished ankle edema. Kendrick Webber MD Dec 03, 2016 15:58
--- NOTE | 2016-12-03 17:15 | NUR ---
Dialysis note: 4 hrs tx. 3000 ml net UF. Left upper arm fistula. Pls see DTR for VS details. Qb 500. Heparin prime given. O2 @ 5L via NC on. Midodrine 10 mg po given 1 hr into tx. Slept at intervals. Fistula needle sites clotted w/in 10 min.
[2016-12-03] MEDS: Albuterol 2.5 mg/3 mL Inhalation Solution NEB PRN (20:50)
[2016-12-03] MEDS: MeTOProlol XL 25 mg ER24 Tablet PO SCH (21:39)
[2016-12-03] MEDS: Vitamin B Complex/Vit C Tablet PO SCH (21:40)
[2016-12-03] MEDS: predniSONE 20 mg Tablet PO SCH (21:40)
[2016-12-03] MEDS: levoFLOXacin 250 mg Tablet PO SCH (21:40)
[2016-12-04] VITALS (8 sets, daily range): BP systolic 105–132; BP diastolic 69–83; PULSE 46–99; RESP 20–24; O2SAT 93–96
[2016-12-04] MEDS: Albuterol 2.5 mg/3 mL Inhalation Solution NEB PRN (00:35)
[2016-12-04] MEDS: Sodium Chloride LOK Flush 10 mL Syringe IVFLUSH SCH ×2 (00:41→07:55)
--- NOTE | 2016-12-04 01:58 | PROG NOTE ---
[address] [address] PROGRESS NOTE PATIENT: KASSANDRA CARNEY : 1945 MR#: [id number] ADMIT: 11/29/2016 JOB ID: [id number] DATE: 12/03/2016 CHIEF COMPLAINT: Shortness of breath. SUBJECTIVE: The patient says shortness of breath is unchanged. Today, he underwent uneventful hemodialysis. OBJECTIVE: Vital signs: Temperature 36.8, blood pressure 101/64, up to 129/82, pulse 65, up to 106 beats per minute, he is satting 96% to 99% on 5 L nasal cannula. He is a chronically ill-appearing man, sitting in bed in no apparent distress. Eyes: No scleral icterus. Heart: Normal S1, S2. Heart sounds are distant and difficult to auscultate. Lungs show coarse breath sounds bilaterally and loud wheezes bilaterally. Abdomen is soft with positive bowel sounds. Extremities showed trace edema. On December 03, he is out more than in by 1.4 L. LABORATORY AND RADIOLOGY REVIEW: There is chronic thrombocytopenia, electrolyte disturbance characteristic of end-stage renal disease. 1.1. Most recent EKG performed November 29, 2016, showed sinus tachycardia with frequent PACs, as well as poor R-wave progression in precordial leads. ASSESSMENT AND PLAN: This is a complex 71-year-old man. His last echocardiogram performed August 12, 2016, showed EF of 60% to 65% with moderate to severe mitral stenosis, moderate to severe aortic stenosis and pulmonary hypertension. Pulmonary systolic pressure 62 mmHg. He has a 1 x 1.2 cm mobile mass attached to posterior leaflet which could be a vegetation or part of the calcific process. His mitral valve mean gradient was 17 mmHg. Aortic valve peak velocity 3.9 m/sec with mean gradient of 39 mmHg. The patient's dyspnea on exertion is multifactorial and includes infectious causes, including his ongoing influenza infection, as well as valvular heart disease with, in my opinion, severe mitral stenosis and severe aortic stenosis, as well as severe emphysema. Because of his anatomy, he is not a candidate for percutaneous transcatheter valve replacement of his mitral valve. I think that big problem for him. I also do not believe that he is a good candidate for surgical procedure to replace his mitral valve and aortic valve because of his extreme COPD, and unfortunately, ongoing smoking. We had a naiam conversation about his prognosis today and he voiced understanding. I am happy to continue seeing him in Cardiology Clinic if he wants to work on maybe diuretics, rate control and AFib prevention, but as far as surgical therapy or percutaneous options, he does not really have any. Thank you for the opportunity to evaluate this patient.
[2016-12-04 06:15] LABS: EOSINOPHILS % (AUTO) 0 % (0-5); Mean Corpuscular Volume 93.6 fL (81-100); Platelet Count 77 bil/L (150-400)
[2016-12-04] MEDS: Ipratropium HFA 200 Puff 12.9 Gm Inhaler INHALATION SCH ×2 (06:30→11:30)
--- NOTE | 2016-12-04 06:37 | NUR ---
activity: pt insists on getting up to the bathroom, 2 PA with FWW and gait belt. pt SOB and weakness with activity. will continue to monitor.
[2016-12-04] MEDS: Heparin 5,000 Unit/mL Inj SUBQ SCH (07:45)
[2016-12-04 07:49] LABS: BASOPHILS % (AUTO) 1 % (0-3); MONOCYTES % (AUTO) 4 % (4-12); NEUTROPHILS % (AUTO) 84 % (40-74)
--- NOTE | 2016-12-04 11:11 | NUR ---
Palliative care note D/A: Case discussed today in PC rounds. Pt is now DNR/DNI status. Pt has been voicing consideration of SNF placement as he feels quite badly physically. Had discussed this with Catalina OBRIEN on 12/03/16 and she had indicated plans to visit with pt during this admission. Dr. Webber to meet with pt today to discuss potential SNF vs home with HNW. (Note that pt would have to agree to dc dialysis for HNW to be able to see.) Msg left for [facility] [employer] in relation to above. Pt now feeling a little better and after some discussion with Dr. Webber, has decided to return home today post dialysis. Pt requests info on DWD. This worker meets with pt and provides info on how to access "End of Life [place]" and notes that services are provided free of charge. Also provided info per website on how to proceed with end of life as well as info on the DWD law. Discussed with pt that first option listed on proceeding with eol care would be to not start or to stop treatment. Reminded him that he has this option currently with cessation of dialysis. Showed son website to be able to assist pt. Have left a message for Catalina OBRIEN in relation to above and additional msg left for [facility] [employer]. P: Palliative to follow as needed until dc. Carley Ceron [facility], [facility] Addendum: 12/04/16 at 1131 by TUYET CERON PC note amendment Call to Catalina at [facility] [place]. Discussed that OPC, Dr. Carreno has provided consult to other patients interested in pursuing DWD to discuss and educate and provide resources on provider assistance with this choice. Also noted that DWD medications are not covered by insurance and estimate is about 600 dollars. Catalina notes that finances are a concern for this family. She will discuss with pt if he would like [facility] appt as he follows up in outpt dialysis. Carley MATTHEWS, CCM
--- NOTE | 2016-12-04 11:21 | PCM.PNMED ---
Subjective Date of Service Dec 04, 2016 Subjective The patient is considerably more comfortable today with much less respiratory distress. His appetite is good and he is able to converse without any significant problems. Exam Vital Signs Vital Sign - Last Date Time Temp Pulse Resp B/P Pulse Ox O2 Delivery O2 Flow Rate FiO2 12/04/16 09:53 36.4 46 20 105/69 96 Nasal Cannula 6.00 Intake and Output 12/03/16 12/03/16 12/04/16 Cumulative From/Thru 15:00 23:00 07:00 11/29/16 13:39 - 12/03/16 22:01 Intake Total 737 ml 5107 ml Output Total 3000 ml 0 ml 63910 ml Balance -3000 ml 737 ml -4893 ml Intake Oral 737 ml 5097 ml IV Total 10 ml Output Urine Total 0 ml 0 ml Ultrafiltrate 3000 ml 41971 ml # Bowel Movements 2 4 Exam The patient is considerably more comfortable without excessive use of his respiratory accessory muscles. There is minimal joint services Center 90. Lungs are clear to auscultation with diffuse hyperresonance noted which is normal for him. Heart was regular with a soft systolic murmur. Abdomen soft line tenderness rebound guarding masses or hepatosplenomegaly. Extremity showed some mild to moderate bilateral lower extremity edema. Lab and Diagnostics Result Diagram: 12/04/16 0540 12/04/16 0540 Microbiology Microbiology 11/29/16 Blood Culture - Preliminary, Resulted NO GROWTH AFTER 24 HOURS 11/30/16 Adenovirus DNA (PCR) - Final, Complete Not Detected 11/30/16 Coronavirus 229E PCR - Final, Complete Not Detected 11/30/16 Coronavirus HKU1 PCR - Final, Complete Not Detected 11/30/16 Coronavirus NL63 PCR - Final, Complete Not Detected 11/30/16 Coronavirus OC43 PCR - Final, Complete Not Detected 11/30/16 Influenza Type A (PCR) - Final, Complete Influenza A H3 11/30/16 Influenza Type B (PCR) - Final, Complete Not Detected 11/30/16 Human Metapneumovirus (PCR) (EDU) - Final, Complete Not Detected 11/30/16 Rhinovirus (PCR)(EDU) - Final, Complete Not Detected 11/30/16 Parainfluenza Virus Type 1 (PCR) - Final, Complete Not Detected 11/30/16 Parainfluenza Virus Type 2 (PCR) - Final, Complete Not Detected 11/30/16 Parainfluenza Virus Type 3 (PCR) - Final, Complete Not Detected 11/30/16 Parainfluenza Virus Type 4 (NAAT) - Final, Complete Not Detected 11/30/16 Respiratory Syncytial Virus (PCR)CA - Final, Complete Not Detected 11/30/16 Chlamydia pneumoniae (PCR) - Final, Complete Not Detected 11/30/16 Mycoplasma pneumoniae DNA Detection - Final, Complete X-Rays, CTs and MRIs PROCEDURE: X-RAY CHEST ONE VIEW, PORTABLE FINDINGS: Surgical changes and devices: None. Lungs and pleura: Small right-sided pleural fluid collection is unchanged compared to prior examination. Bibasilar lung opacities have decreased in size compared to prior examination. Right midlung pleural-based lesion is stable compared to prior examinations. Mild cephalization of pulmonary vasculature is noted suggesting CHF. Mediastinum: Mediastinal contours appear normal. Heart size is mildly enlarged. Bones and chest wall: No suspicious bony lesions. Overlying soft tissues appear unremarkable. IMPRESSION: 1. Mild cephalization of pulmonary vasculature suggesting CHF. Please correlate with clinical data. 2. Small right-sided pleural fluid collection is stable. 3. Bibasilar opacities decreased in size compared to 11/26/2016 Dictated by: Sandra Crum MD, PhD on 11/29/2016 at 14:36 Approved by: Sandra Crum MD, PhD on 11/29/2016 at 14:36 Assessment & Plan Impression #1 end-stage renal disease dialysis dependent #2 COPD #3 influenza type A Recommendations #1 of make arrangements for his dialysis today he is to be dialyzed for 3 hours 2 potassium bath will try to take 2-3 L of fluid. Lymphoma be discharged today and instructed to follow up for his dialysis treatment on Wednesday. Resuscitation Status: DNR/DNI:Do Not Resuscitate/Intubate Limited Interventions: Compressions, Cardioversion/Defibrillation, BiPAP Ap Pearce DO Dec 04, 2016 11:21
--- NOTE | 2016-12-04 11:57 | NUR ---
Dialysis Pt off unit for dialysis, planning to d/c afterwards. Son aware and went to picking machine operator home meds from pharmacy
[2016-12-04] MEDS ORDERED: PRED-508 PO (12:06)
--- NOTE | 2016-12-04 13:09 | PCM.DIMED ---
Lesvia Lepe DO 12/04/16 1255: Discharge Instructions Date of Service Dec 04, 2016 Dates of Hospitalization Nov 29, 2016 at 18:16 Discharge Diagnosis Discharge Diagnosis Acute COPD exacerbation, Acute infection with Influenza A Acute decompensated diastolic congestive heart failure exacerbation Elevated troponin, End-stage renal disease on dialysis Urinary tract infection Mitral valve vegetation Tobacco use Hypothyroidism Hypertension 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 We did not make any changes to your home medications. You will also need to take Tamiflu daily for the next 8 days. Continue to use your home oxygen and your home inhalers. Continue to complete the course of antibiotics prescribed to you by Dr Pearce Diet Renal Diet Activity No restrictions Call your provider Fever or Chills, Shortness of breath, Chest pain, Weakness (unilateral) Patient Instructions You have 3 more days of prednisone 40mg daily to take. We did not make any changes to your home medications. You will also need to take Tamiflu daily for the next 8 days. Continue to use your home oxygen and your home inhalers. You need to complete the course of antibiotics prescribed to you by Dr Pearce You need to follow up with Dr Pearce and Dr Woods. Follow-up Provider: Ap Pearce DO Follow-up with PCP in: 1 week Provider: Sarina Woods MD Follow-up in: 2 weeks Bobby Siu MD 12/05/16 0928: Lesvia Lepe DO Dec 04, 2016 12:55 Bobby Siu MD Dec 05, 2016 09:28
[2016-12-04] MEDS ORDERED: OSEL30CA PO (13:10)
--- NOTE | 2016-12-04 13:39 | PCM.PALLBR ---
Palliative Care Recommendation 71-year-old gentleman with end-stage COPD as well as ESRD on hemodialysis, with progressive valvular heart disease, admitted with worsening weakness and dyspnea and evidence of acute on chronic respiratory failure. Palliative medicine consult to assist with determination of goals of care. Summary of palliative recommendations: -Symptom management (Pain/other)- continued management per hospitalist service. Patient insists that he is discharging today. -DPOA/Advanced Directives/POLST- reviewed in detail with patient. As a consequence of our conversation, CODE STATUS updated to DO NOT RESUSCITATE/DO NOT INTUBATE. Patient and family not willing to proceed to comfort care at this time. New POLST completed today that indicates DO NOT RESUSCITATE/DO NOT INTUBATE/limited interventions/antibiotics okay/no artificial nutrition. Patient does want to continue dialysis for the time being. He inquired about with [facility] program was given information. -Family/emotional support- good support from his and son Patient Goals: 1. Patient and family want to be told the truth about his illness, even if it is unpleasant. 2. Patient and family would like to be told prognosis when it can be predicted, to better guide treatment decisions. Additional Medical Diagnoses with primary management by Hospitalist team include : Acute COPD exacerbation, present on admission, ongoing Acute infection with Influenza A, ongoing Acute decompensated diastolic congestive heart failure exacerbation, present on admission, ongoing Elevated troponin, acute on chronic. End-stage renal disease on dialysis Urinary tract infection, present prior to admission. 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 Advanced Care Planning Address: POLST Pain: None Symptom management: Anxiety, Dyspnea Total time 45 minutes; >50% face to face with patient and family, providing counselling regarding plans and recommendations, and in care coordination with his medical teams. Of the above total time, 30 minutes counseling for advanced care planning with the patient, completing new POLST Palliative Brief Note Date of Service Dec 04, 2016 . Returned to reevaluate patient. Prior to visiting, reviewed his records in the EMR, spoke with his bedside nurse and spoke with braille duplicating machine operator. I also spoke with his operations management professionals- patient initially refused dialysis today but then reconsidered and said he would carry through with it. When I arrived, he is resting comfortably in bed, his son at bedside. He appears more at ease today and his breathing is better. He admits that he feels better. He does immediately say though that he is going to discharged home this afternoon and will brook no further discussion of this. We discussed his braille duplicating machine operator's recommendations. He understands that there is nothing more that can be done from a cardiopulmonary standpoint. The conversations and move forward to overall goals of care and plans- at this time he says that he wants to continue with dialysis and other medical care and that he is not yet ready to give up. He did express interest in researching with [facility] and he was provided contact information, etc. about that. His son had several questions about ongoing care and we reviewed those. Then discussed his advanced directive wishes once again. He has "4 or 5 of those green things at home" referring to POLST documents. We reviewed the wishes that he had expressed to me several days ago, and I assisted him in completing a new POLST form that is consistent with his current wishes. Kendrick Webber MD Dec 04, 2016 13:39
--- NOTE | 2016-12-04 14:25 | NUR ---
Dialysis note: 3 hrs tx. 2000 ml net UF. Left upper arm fistula. Midodrine 5 mg po given just prior to tx. Pls see DTR for VS details. Qb 500. Heparin prime given. O2 @ 6L via NC on. Slept at intervals. Fistula needle sites clotted w/in 10 min.
--- NOTE | 2016-12-04 14:30 | NUR ---
Discharge teaching Discharge teaching done on [facility] by [place] RN, PIV removed intact, son at bedside, both verbalize understanding. Report given to Nazanin WILLIAMSON Addendum: 12/04/16 at 1432 by RENU MCFARLANE RN Belongings moved from [id number] to [facility]
--- NOTE | 2016-12-04 16:50 | NUR ---
Social Work: Discharge Data: Pt is on day 5 of hospitalization. EMR reviewed, d/c orders are in. [employer] SCI[employer]IST spoke with pt's spouse regarding HH, she was agreeable to this, she reported no preference. INSTITUTE SCIENTIST referred to rotating calender, referred pt to [facility], F2F given, access given. No further d/c planning needs. INSTITUTE SCIENTIST will continue to follow if needs arise. Assessment: Pt who is independent at baseline. Plan: Pt will d/c home via POV with son and [facility]. No further d/c planning needs. INSTITUTE SCIENTIST will continue to follow if needs arise. PRAVEEN Levin
--- NOTE | 2016-12-04 23:42 | PCM.DC.MED ---
Discharge Summary Date of Service Dec 04, 2016 Dates of Hospitalization Date of Hospital Admission Nov 29, 2016 at 18:16 Date of Discharge: Dec 04, 2016 Providers: Admitting Physician: Chin Grady MD Primary Care Physician: Noprio Attending Physician: Chin Grady MD Diagnosis at Time of Discharge Diagnosis at Time of Discharge Acute COPD exacerbation, Acute infection with Influenza A Acute decompensated diastolic congestive heart failure exacerbation Elevated troponin, End-stage renal disease on dialysis Urinary tract infection Mitral valve vegetation Tobacco use Hypothyroidism Hypertension 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 Lungs and pleura: Small right-sided pleural fluid collection is unchanged compared to prior examination. Bibasilar lung opacities have decreased in size compared to prior examination. Right midlung pleural-based lesion is stable compared to prior examinations. Mild cephalization of pulmonary vasculature is noted suggesting CHF. Mediastinum: Mediastinal contours appear normal. Heart size is mildly enlarged. Bones and chest wall: No suspicious bony lesions. Overlying soft tissues appear unremarkable. IMPRESSION: 1. Mild cephalization of pulmonary vasculature suggesting CHF. Please correlate with clinical data. 2. Small right-sided pleural fluid collection is stable. 3. Bibasilar opacities decreased in size compared to 11/26/2016 Dictated by: Sandra Crum MD, PhD on 11/29/2016 at 14:36 Approved by: Sandra Crum MD, PhD on 11/29/2016 at 14:36 PROCEDURE: US ABDOMEN, LIMITED ([id number]) FINDINGS: No evidence of ascites. IMPRESSION: No evidence of ascites. Dictated by: Jer Szymanski M.D. on 12/01/2016 at 15:25 Approved by: Jer Szymanski M.D. on 12/01/2016 at 15:25 PROCEDURE: X-RAY CHEST ONE VIEW, PORTABLE ([id number]) FINDINGS: Surgical changes and devices: None. Lungs and pleura: There is a continued appearance of pulmonary edema. Bibasilar opacities are present, although slightly less prominent. Mildly improved left pleural effusion. Mediastinum: Mediastinal contours appear normal. Heart size is enlarged. Bones and chest wall: No suspicious bony lesions. Overlying soft tissues appear unremarkable. IMPRESSION: Mild appearance of improvement in bibasilar opacities and effusion , as above. Dictated by: Zayra Olivas M.D. on 12/01/2016 at 15:37 Approved by: Zayra Olivas M.D. on 12/01/2016 at 15:37 Brief History 71 yr old male with history of ESRD on dialysis, oxygen dependent COPD and CHF presented to the ER with complaint of worsening dyspnea. Pt was very frustrated with the care he has received, stating "I don't know if i trust you people to take of me, no one knows renal stuff". Pt states that he got into some arguments with nursing overnight, and considered leaving AMA. Pt notes that if he does not receive better care today, he may leave. Pt reports that his shortness of breath is worsening, and states it is because of his care. Pt reports that overnight he had difficulty breathing and was coughing more. Pt denies any nausea or vomiting or abdominal pain, but does report some constipation. Offered pt stool softener, pt declined. Pt denies any fevers, chills, myalgias. Per nursing notes, pt was non compliant with medications and falls policy overnight. Pt adamant about keeping his home medications with him. See nurse notes for details. Per previous records - Dr Ramos's note 08/2016--"The patient has two prior admissions from which he left AMA. He initially presented with progressive fatigue, malaise, fevers and rigors. At the time an ECHO showed a questionable mitral valve abnormality with curiously negative blood cultures off antibiotics. During that admission, he was noted on echocardiogram to have a mitral valve vegetation secondary to his central access for dialysis, which was then removed. A plan was made to initiate vancomycin and ceftazidime antibiotic therapy with the patient's dialysis, however he signed out AMA. He subsequently returned with another COPD exacerbation. Blood cultures obtained at that time only showed one bottle with staph saprophyticus which was a likely contaminant. He was treated empirically with vancomycin and ceftazidime for a planned course of 6-8 weeks. The patient was scheduled for an BABAK however he left AMA the day before it could be completed. He was newly diagnosed with right heart failure secondary to mitral stenosis during his last admission." Hospital Course 71 yr old male with history of ESRD on dialysis, oxygen dependent COPD with ongoing tobacco use,mitral valve vegetation with possible endocarditis, diastolic CHF, afib, HTN, and HLD who presented to the ED complaining of increased shortness of breath. He typically uses 5L O2 at home and uses nebulizer treatments.Patient was seen by Nephrology. Pt was also seen by Cardiology who did not feel the patient was an appropriate candidate for any surgical treatment. Pt was seen by Palliative care who discussed goals of care with the patient. Pt changed his code status to DNR/DNI. Pt was not interested in Hospice. Discharge home in stable condition, with poor prognosis. Pt was discharged home with family, and advised to follow up with his PCP and specialists. #5 days in hospital. Acute COPD exacerbation, - Pt presented with progressive shortness of breath at rest and with exertion, with productive cough. Presents with decreased lung sounds and prolonged expiratory phase. - CXR shows "bibasilar opacities decreased in size compared to 11/26/2016" -Prednisone 40mg daily discharged with 3 more days for total of 5 day course -PCR positive for Influenza A -CXR (12/01/16) -showing improved opacities and effusion Acute infection with Influenza A -Pt believes he received the flu vaccine this season -Tamiflu started on 12/01/2016, discharged with 8 more doses to complete 10 day course. Acute decompensated diastolic congestive heart failure exacerbation -Diuresed pt -US of abdomen did not demonstrate evidence of ascites -Pt to see Cardiology in outpatient setting for rate control, afib prevention and diuretics Hx of mitral stenosis, aortic stenosis -Pt to see Cardiology in outpatient setting for rate control, afib prevention and diuretics Elevated troponin - Pt has chronically elevated troponin secondary to ESRD and likely chronic from severe mitral valve calcification End-stage renal disease on dialysis - Dialysis M/W/F as at home - Nephrology to follow outpatient -Underwent 2 hours ultrafiltration on 11/29/16 Urinary tract infection, present prior to admission. -Pt prescribed 10 day course of Levaquin [address] Pearce -Continue with abx to completion Mitral valve vegetation, - Echo 08/12/16 showed mitral valve vegetation - Blood cultures x2- no growth to date Tobacco use, chronic - Pt smokes over 1 pack per day. - Pt counseled on smoking cessation. Hypothyroidism, chronic - No change to home levothyroxine Hypertension, chronic - No change to home dose of Coreg and Norvasc CODE STATUS: DNR/DNI This was discussed with patient on 12/02/2016 with Palliative Care. Exam Vital Signs (Last) Date Time Temp Pulse Resp B/P Pulse Ox O2 Delivery O2 Flow Rate FiO2 12/04/16 11:17 52 12/04/16 09:53 36.4 20 105/69 96 Nasal Cannula 6.00 Exam General: Pt supine on bed Pt appears fatigued but more comfortable than previously HEENT: Nasal canula in place. Normocephalic, atraumatic.Pale conjunctivae. Oropharynx with moist mucosa. Neck: Supple with full range of motion. JVD present Cardiovascular: Regular rate and rhythm with systolic murmur auscultated Pulmonary: Decreased and coarse lung sounds bilaterally throughout( improved) Mild conversational dyspnea Abdomen: Bowel tones present. Soft, nontender. Extremities: 2+ pitting edema bilateral lower extremities, skin is very dry. Unable to palpate pulses due to edema. Skin: Normal temperature, no rash, ulcers, or subcutaneous nodules appreciated. Psychiatric: Normal mood and normal affect. Alert and oriented to person, place , and time Test 11/29/16 13:40 11/29/16 16:00 12/01/16 06:10 12/03/16 06:15 Troponin T 0.221ug/L (0.0-0.011) Procalcitonin 1.20ng/mL (See Comment) Pro-B-Type Natriuretic Peptide 186504tf/mL (0-376) Prothrombin Time 11.6sec (8.1-12.5) Prothromb Time International Ratio 1.08ratio Activated Partial Thromboplast Time 30.9sec (22.8-33.0) Metamyelocytes % 1% (0-0) Test 12/04/16 05:40 White Blood Count 7.8th/mm3 (3.8-10.1) Red Blood Count 4.07mil/mm3 (4.40-5.80) Hemoglobin 11.0g/dL (13.8-17.2) Hematocrit 38.1% (41.0-50.0) Mean Corpuscular Volume 93.6fL (81-100) Mean Corpuscular Hemoglobin 27.0pg (27.0-35.0) Mean Corpuscular Hemoglobin Concent 28.9% (32.0-37.0) Red Cell Distribution Width 17.6% (12.3-15.4) Platelet Count 77bil/L (150-400) Neutrophils (%) (Auto) 84% (40-74) Lymphocytes (%) (Auto) 7% (14-46) Monocytes (%) (Auto) 4% (4-12) Eosinophils (%) (Auto) 0% (0-5) Basophils (%) (Auto) 1% (0-3) Band Neutrophils % 2% (1-5) Myelocytes % 2% (0-0) Nucleated Red Blood Cells 1/100 WBC (0-24) Hematology Comments Rbc Sodium Level 139mEq/L (134-144) Potassium Level 4.8mEq/L (3.5-5.2) Chloride Level 96mEq/L (97-108) Carbon Dioxide Level 24mmol/L (18-29) Blood Urea Nitrogen 40mg/dL (8-27) Creatinine 3.89mg/dL (0.76-1.27) Estimat Glomerular Filtration Rate 16mL/min (>59) Glucose Level 137mg/dL (60-99) Calcium Level 8.9mg/dL (8.5-10.1) Total Bilirubin 0.8mg/dL (0.0-1.2) Aspartate Amino Transf (AST/SGOT) 106U/L (0-50) Alanine Aminotransferase (ALT/SGPT) 159U/L (0-44) Alkaline Phosphatase 83U/L (25-160) Total Protein 6.2g/dL (6.4-8.4) Albumin 3.9g/dL (3.4-5.0) Microbiology Results Microbiology 11/29/16 Blood Culture - Preliminary, Resulted NO GROWTH AFTER 24 HOURS 11/30/16 Adenovirus DNA (PCR) - Final, Complete Not Detected 11/30/16 Coronavirus 229E PCR - Final, Complete Not Detected 11/30/16 Coronavirus HKU1 PCR - Final, Complete Not Detected 11/30/16 Coronavirus NL63 PCR - Final, Complete Not Detected 11/30/16 Coronavirus OC43 PCR - Final, Complete Not Detected 11/30/16 Influenza Type A (PCR) - Final, Complete Influenza A H3 11/30/16 Influenza Type B (PCR) - Final, Complete Not Detected 11/30/16 Human Metapneumovirus (PCR) (EDU) - Final, Complete Not Detected 11/30/16 Rhinovirus (PCR)(EDU) - Final, Complete Not Detected 11/30/16 Parainfluenza Virus Type 1 (PCR) - Final, Complete Not Detected 11/30/16 Parainfluenza Virus Type 2 (PCR) - Final, Complete Not Detected 11/30/16 Parainfluenza Virus Type 3 (PCR) - Final, Complete Not Detected 11/30/16 Parainfluenza Virus Type 4 (NAAT) - Final, Complete Not Detected 11/30/16 Respiratory Syncytial Virus (PCR)PA - Final, Complete Not Detected 11/30/16 Chlamydia pneumoniae (PCR) - Final, Complete Not Detected 11/30/16 Mycoplasma pneumoniae DNA Detection - Final, Complete Discharge Medications Discharge Medications Ergocalciferol (Vitamin D2) (Vitamin D2) 2,000 Unit Tablet 50,000 UNIT PO WEEKLY (Reported) Furosemide (Furosemide) 80 Mg Tab 240 MG PO BID (Reported) Ipratropium Hi Hat (Atrovent HFA) 200 Puff/12.9 Gm Inhaler 2 PUFF INH QID ( Reported) Levofloxacin (Levofloxacin) 500 Mg Tablet 250 MG PO DAILY (Reported) Levothyroxine (Levothyroxine) 100 Mcg Tablet 100 MCG PO HS (Reported) Melatonin/Pyridoxine (Melatonin 3 mg Tablet) 1 Each Tablet 20 MG PO HS (Reported ) Metoprolol Succinate ER (Metoprolol Succinate ER) 25 Mg Tab.er.24h 25 MG PO D ( Reported) Midodrine (Midodrine) 5 Mg Tablet 5 MG PO BEFORE DIALYSIS (Reported) Oseltamivir Phosphate (Tamiflu) 30 Mg Capsule 30 MG PO DAILY Prescribed by: OWEN GRESHAM DO Prednisone (PredniSONE) 5 Mg Tab 5 MG PO DAILY (Reported) Prednisone (Deltasone) 20 Mg Tablet 40 MG PO DAILYWM@20 Prescribed by: OWEN GRESHAM DO Vitamin B Complex/Vit C (Viviana-Belen Tablet) 1 Tab Tab 1 TAB PO DAILY (Reported) As needed Albuterol Sulfate (Ventolin HFA Inhaler) 200 Puff/18 Gm Inhaler 2 PUFF INH Q4 PRN PRN For Wheezing (Reported) Clobetasol Propionate (Clobetasol Propionate) 50 Ml Solution 1 APPLIC TOPICAL DAILY PRN PRN psoriasis (Reported) Sevelamer Carbonate (Renvela) 800 Mg Tablet 800 MG PO TID PRN PRN For Indigestion (Reported) PT TAKES MED EVERY TIME HE EATS ANYTHING Additional med instructions You have 3 more days of prednisone 40mg daily to take. We did not make any changes to your home medications. You will also need to take Tamiflu daily for the next 8 days. Continue to use your home oxygen and your home inhalers. Continue to complete the course of antibiotics prescribed to you by Dr Pearce Followup Plan Disposition: home Discharge Diet: Renal Diet Discharge Activity: No restrictions Patient Instructions You have 3 more days of prednisone 40mg daily to take. We did not make any changes to your home medications. You will also need to take Tamiflu daily for the next 8 days. Continue to use your home oxygen and your home inhalers. You need to complete the course of antibiotics prescribed to you by Dr Pearce You need to follow up with Dr Pearce and Dr Woods. Follow-up Provider: Ap Pearce DO Follow-up with PCP in: 1 week Provider: Sarina Woods MD Follow-up in: 2 weeks Time spent 40 minutes Attending Statement The patient was seen and examined together with Dr. Gresham on 12/04/2016 and I agree with the history, exam and plan as outlined in the note above. copies to: Ap Pearce Tara L DO Dec 04, 2016 23:42 Bobby Siu MD Dec 05, 2016 09:29
--- NOTE | 2016-12-07 10:50 | NUR ---
Palliative care note D/A: Phone call to Umu M[place] [facility] [place] POLST[place] [facility] POLST [place] DNR/DNI as well as limited interventions with pt specifically calling out do not use intubation or mechanical ventilation. Pt expressed his goals as comfort and limited ongoing treatment. Pt decided that he would like use of antibiotics to be determined when infection occurs, with comfort as the goal. He does not wish medically assisted nutrition. Pt signed POLST on 12/04/2016. P: No further need for PC services. Carley MATTHEWS. [facility]
--- NOTE | 2016-12-10 14:51 | NUR ---
Palliative care note-follow up phone call D/A: Chart reviewed for dc plan. Note that pt spouse called to [facility] to express surprise at dc plan as pt had changed mind to go home as previous plan had been consideration of SNF. Spouse indicated that she had concerns about pt returning home and agreed to a referral for [facility]. Phone call to family and speak to pt. He is able to speak in full sentences and is initially cordial to this worker and recalls fondroxy. However-when this worker mentions the referral to L[facility] CHAV[facility]-he becomes very upset. He notes that he will never allow someone strange in his home unless the person has a full background check. He indicates that when Lara called to schedule visit-he cancelled referral. He then indicates his household is quite busy with taxes and ended call. Phone call to MICAH Howell. Leave her message asking for her assistance in future. Should she find that Mr. Valle has readmitted-to please alert this worker. This worker will discuss with ARIE MORTON with the recommendation that they consider a family conference with pt and spouse to discuss pt return to home, if desired and what type of additional services might be needed to assist spouse with meeting his needs. P: No further need for PC services. Carley MATTHEWS, CCM
== END 2016-12-04 15:00 | disposition home health service (06) | DRG 291 ==
LOC: SED 13:33 → MPC 18:16 → MOC 12-04 14:08
PROVIDERS: ADMIT Hospitalist; ATTEND Hospitalist
PROC: 5A1D00Z (ICD-10-PCS; principal; 2016-11-29)
DX: I13.2 Hypertensive heart and chronic kidney disease with heart failure and with stage 5 chronic kidney disease, or end stage renal disease (principal); I50.31 Acute diastolic (congestive) heart failure; J44.1 Chronic obstructive pulmonary disease with (acute) exacerbation; N39.0 Urinary tract infection, site not specified; I05.0 Rheumatic mitral stenosis; N13.5 Crossing vessel and stricture of ureter without hydronephrosis; E03.9 Hypothyroidism, unspecified; F17.210 Nicotine dependence, cigarettes, uncomplicated; F40.240 Claustrophobia; J10.1 Influenza due to other identified influenza virus with other respiratory manifestations; E78.5 Hyperlipidemia, unspecified; D63.1 Anemia in chronic kidney disease; D69.6 Thrombocytopenia, unspecified; Z91.19 Patient's noncompliance with other medical treatment and regimen; Z99.81 Dependence on supplemental oxygen; Z79.52 Long term (current) use of systemic steroids

== ENCOUNTER 2016-12-25 06:43 | Inpatient (IN) | payer MEDICARE, OTHER ==
[~2016-12-25] VITALS: Ht 182.9 cm; Wt 90.8 kg
[~2016-12-25 06:43] MED LIST changes: +ALBU18HF INH; -ALBU90AE INHALATION; -AMLO5TAB2 PO; +ATRINH INH; -CARV12.52 PO; +ERGO2000 PO; -ERGO500050 PO; -IPRA3AMP IH; +LEVO500T79 PO; +METO25TA99 PO; +MIDO5TAB PO; +OSEL30CA PO
[2016-12-25 08:00] VITALS: BP 106/60; PULSE 95; RESP 22; O2SAT 96
[2016-12-25 09:26] VITALS: BP 94/59; PULSE 50
[2016-12-25] MEDS: MANNITOL 25% IVPUSH PRN ×2 (10:20→11:53)
[2016-12-25] MEDS ORDERED: Ondansetron 2 mg/mL 2 mL Inj IVPUSH PRN (11:20)
[2016-12-25] MEDS ORDERED: Polyethylene Glycol (PEG) 17 Gm Powder PO PRN (11:20)
[2016-12-25] MEDS ORDERED: MeTOProlol XL 25 mg ER24 Tablet PO SCH (11:30)
[2016-12-25] MEDS ORDERED: Vitamin B Complex/Vit C Tablet PO SCH (11:30)
[2016-12-25] MEDS ORDERED: predniSONE 5 mg Tablet PO SCH (11:30)
[2016-12-25] MEDS: Ipratropium HFA 200 Puff 12.9 Gm Inhaler INHALATION SCH ×3 (11:30→21:30)
[2016-12-25] MEDS ORDERED: Albuterol HFA 60 Puff 8 Gm Inhaler INHALATION PRN (11:30)
--- NOTE | 2016-12-25 13:37 | NUR ---
Admit [place] [facility] [place] from Dr. Pearce via wheelchair at 0750. SpO2 95% 3L NC. IV Therapy placed IV in R thumb, L fistula. Admit and med rec completed.
--- NOTE | 2016-12-25 13:40 | NUR ---
Dialysis note: 4 hrs PUF. 5000 ml net UF. Left upper arm fistula. Midodrine 5 mg po given prior to tx and at 3rd hr of tx. Mannitol 25 Gm IV given at start of tx and at 3rd hr of tx. Pls see DTR for VS details. Qb 300. No heparin given. O2 @ 3L via NC on. PRN Tylenol po given by primary RN for pain. Tolerated tx, slept at intervals. Fistula needle sites clotted w/in 10 min. Report given to Margie Garcia RN. Transferred back to patient's room in stable condition.
--- NOTE | 2016-12-25 13:44 | NUR ---
Return from Dialysis Dialysis completed at 1315, VSS, SPO2 96% 4L NC, A/Ox3.
[2016-12-25 15:38] VITALS: BP 91/57; PULSE 68; RESP 21; O2SAT 94
[2016-12-25 15:51] LABS: BASOPHILS % (AUTO) 0.1 % (0-3); EOSINOPHILS % (AUTO) 1.8 % (0-5); MONOCYTES % (AUTO) 9.6 % (4-12); Mean Corpuscular Hemoglobin 27.3 pg (27.0-35.0); Mean Corpuscular Volume 94.9 fL (81-100); NEUTROPHILS % (AUTO) 78.8 % (40-74); Platelet Count 137 bil/L (150-400)
[2016-12-25 16:08] LABS: INR 1.05 ratio
[2016-12-25] MEDS ORDERED: Mannitol 25% 12.5 Gm/50 mL Inj IVPUSH SCH (16:50)
[2016-12-25] MEDS ORDERED: Vancomycin Inj 1,000 MG in IV Premix 1 EACH IV ONE (16:50)
[2016-12-25 16:52] VITALS: PULSE 70; RESP 20; O2SAT 97
[2016-12-25] MEDS: Albuterol-Ipratropium 3 mL Inhalation Solution NEB PRN (16:52)
--- NOTE | 2016-12-25 17:15 | NUR ---
Wound Care Wound care orders received, pt seen at bedside with Dr Pearce present. 71 yo male admitted with Anasarca history of COPD and ESRD. Significant edema at both LE's left greater than right, stasis changes noted at the skin of the lower legs. Pt does have some superficial skin abrasions at his left leg and is exquisitely tender to the touch at the skin of the left lateral adames and anterior ankle. Suspect a cellulitic process here, while pt is edematous I would be reluctant to compress this patient with cellulitis. Will recheck on this patient Wednesday.
--- NOTE | 2016-12-25 18:01 | NUR ---
Activity/Fall Risk Pt up to BR with 1PA, generalized, weakness, steady on feet. Pt c/o painful psoriasis wounds/scaling on SHASHA feet, in addition to BLE pitting edema. Patient refusing Zuni alarm at this time. Explained importance of keeping patient safe due to pain, edema, and recent fall at home. Frequent RN rounding, patient using call light for needs. Will continue to reinforce fall risk education. Addendum: 12/25/16 at 1837 by ISIDRO STONE RN Patient continues to refuse Zuni alarm. Built-in bed alarm on for safety.
--- NOTE | 2016-12-25 18:30 | DRSVH ---
PROCEDURE: X-RAY CHEST ONE VIEW, PORTABLE ([id number]) INDICATIONS: SHORT OF BREATH TECHNIQUE: One view of the chest was acquired. COMPARISON: [facility], CR, XR CHEST 1VW (PORTABLE), 11/29/2016, 13:39. FINDINGS: Surgical changes and devices: None. Lungs and pleura: No pleural effusions or pneumothorax. There is increased moderate patchy bilateral airspace opacity. Mediastinum: Mediastinal contours appear normal. Heart size is normal. Bones and chest wall: No suspicious bony lesions. Overlying soft tissues appear unremarkable. IMPRESSION: Increase multifocal pneumonia. Dictated by: Jer Szymanski M.D. on 12/25/2016 at 18:28 Approved by: Jer Szymanski M.D. on 12/25/2016 at 18:28
--- NOTE | 2016-12-25 18:47 | NUR ---
Pain Pt c/o 10/10 L adames pain r/t open wound. Warm wash cloth applied per patient request with no relief. Tylenol administered, ineffective. paged, awaiting new orders. Care continues.
--- NOTE | 2016-12-25 19:15 | PCM.CHPMED ---
Subjective Date of Service: Dec 25, 2016 Provider requesting consult: Axel Nielsen MD Primary Physician: Admitting Physician: Axel Nielsen MD Primary Care Physician: Noprio Attending Physician: Axel Nielsen MD Admit Status: Direct Admit Chief Complaint: Chief Complaint: Fluid overload and worsening peripheral edema. . 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 Pearce, for fluid overload and worsening peripheral edema. He reports worsening shortness of breath, pulmonary congestion, and pitting edema of his legs with weeping, L>R. His last hemodialysis session was on Wednesday in which 1 L of fluid was removed. He denies any headache, chest pain, nausea, vomiting, fever, chills, diarrhea or constipation. . Review of Systems: A comprehensive review of systems was conducted with the patient and found to be negative except as above in the History of Present Illness. . PMH Past Medical History 1. 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 2. Severe oxygen-dependent COPD on chronic low-dose prednisone. 3. Mitral and aortic stenosis 4. Diastolic congestive heart failure 5. Hypertension with hypertensive heart disease and hypertensive nephrosclerosis. 6. Hypothyroidism. 7. Psoriasis. 8. Heavy Tobacco use disorder. 9. Dyslipidemia. 10. Chronic anemia 2nd to Renal failure. 11. Colon polyps. 12. History of atrial fibrillation. 13. PTSD with claustrophobia, cannot tolerate BPAP mask. 14. Likely sleep apnea. 15. Multilevel degenerative disc disease. 16. 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 . Surgical History 1. Hernia repair. 2. Several ureterostomies. 3. AV fistula on left arm. 4. Knee surgery. 5. Bilateral cataract surgery. 6. Dual lumen dialysis catheter on right chest. . Home Medications Patient was unsure of all of his medications and dosages so this was taken from chart: Albuterol sulfate 2 puffs inhaled every 4 hours as needed for shortness of breath. Clobetasol applied topically as needed for psoriasis. Ergocalciferol 50,000 units weekly. Furosemide 240 mg twice a day. Atrovent 2 puffs inhaled 4 times a day. Levothyroxine 100 g daily at bedtime. Melatonin 20 mg daily at bedtime. Metoprolol succinate 25 mg daily. Midodrine 5 mg prior to dialysis. Prednisone 5 mg daily. Renvela 800 mg 3 times a day. Vitamin B complex 1 tab daily. . Allergies: Coded Allergies: perfume (Verified Allergy, Severe, "stops me from breathing", 12/25/16) tiotropium (Verified Allergy, Severe, SHUTS HIM DOWN, 12/25/16) Family History Family History Mother from brain tumor. Father who had heart disease and of stroke. Half-brother who is healthy as far as he knows. Three half-sisters who he is estranged to. . Social History Hx Alcohol Use: Yes (former heavy drinker, rarely uses alcohol now)Hx Substance Use: NoHx Tobacco Use: Yes (1.5 PPD 40+ years, currently 0.5 PPD x2yrs) Smoking Status: Heavy Tobacco Smoker (1.5 PPD 40+ years, currently 0.5 PPD x 2 years) Exam Vital Signs Vital Sign - Last Date Time Temp Pulse Resp B/P Pulse Ox O2 Delivery O2 Flow Rate FiO2 12/25/16 08:00 36.3 95 22 106/60 96 Nasal Cannula 3.00 General: Alert, Oriented X3, Cooperative, No Acute Distress, Other ( chronically ill-appearing) Head: Normal Eyes: PERRLA, EOMI, Scleral Anicteric Mouth: Mouth Normal, Mucous Membr Moist/[place], Other (poor dentition) Neck: Supple, No Thyromegaly, Other (JVD) Chest & Lungs: Diminished breath sounds, Coarse breath sounds Cardiovascular: Regular Rate/Rhythm, Normal S1, Normal S2 Abdomen: Non-tender, Non-distended, No masses, No hepatosplenomegaly Genitourinary: [place] Absent Extremities: Other (severe pitting edema confined to the lower extremities, weeping, AV fistula left arm) Neurological: Grossly Neurologically Intact Lab and Diagnostics Labs CBC, CMP, magnesium, phosphorus, and pro-time were all pending at time of this dictation. . X-Rays, CTs and MRIs Chest x-ray pending at the time of this dictation. . 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 Pearce, for fluid overload and worsening peripheral edema. Impression: 1. Acute on chronic fluid overload, multifactorial and secondary to congestive diastolic heart failure with possible exacerbation, chronic mitral and aortic valvular disease, ESRD, and COPD with likely pulmonary hypertension and possible exacerbation. 2. 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 3. Hypertension with hypertensive heart disease and hypertensive nephrosclerosis. 4. Severe oxygen dependent chronic obstructive pulmonary disease. Plan: - We will plan to ultrafiltrate him today and take 5 L off. We will continue dialyze him for the next five days with mannitol for blood pressure support. - Ordered chest x-ray and pro calcitonin to assess for bacterial lung infection such as pneumonia vs COPD exacerbation. . Problems: Brenda Marley DO Dec 25, 2016 14:07
[2016-12-25 20:10] VITALS: BP 100/60; PULSE 52; RESP 20; O2SAT 95
[2016-12-25] MEDS: Vitamin B Complex/Vit C Tablet PO SCH (20:14)
[2016-12-25] MEDS: predniSONE 5 mg Tablet PO SCH (20:14)
[2016-12-25] MEDS: Heparin 5,000 Unit/mL Inj SUBQ SCH (20:22)
[2016-12-25] MEDS ORDERED: Clobetasol Prop 0.05% 15 Gm Ointment TOPICAL PRN (20:30)
[2016-12-25] MEDS ORDERED: HYDROmorphone 0.5 mg/0.5 mL iSecure Syringe IVPUSH ONE (20:40)
[2016-12-25 21:45] VITALS: BP 102/67; PULSE 66
[2016-12-25] MEDS: MeTOProlol XL 25 mg ER24 Tablet PO SCH (21:48)
--- NOTE | 2016-12-25 22:13 | PCM.HPMED ---
Subjective Date of Service Dec 25, 2016 Primary Provider: Admitting Physician: Axel Nielsen MD Primary Care Physician: Noprio Attending Physician: Axel Nielsen MD Admit Status: Direct Admit (patient was directly admitted from the hemodialysis unit by Dr. Pearce.), Admit to Red Team Chief Complaint: Fluid overload and worsening peripheral edema. . 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 He has a history of mitral and aortic stenosis, with chronic diastolic congestive heart failure and severe O2 dependent COPD on chronic prednisone with continued smoking who is a direct admit by his fire marshal refinery, Dr. Pearce, for fluid overload and worsening peripheral edema. He reports worsening shortness of breath, pulmonary congestion, and pitting edema of his legs with weeping, L>R. His last hemodialysis session was on Wednesday in which 1 L of fluid was removed. He denies any headache, chest pain , nausea, vomiting, fever, chills, diarrhea or constipation. Patient was directly admitted from the dialysis unit by Dr. Pearce to the hospital service. . Review of Systems: General: The patient has no fevers, no sweats, no chills and is severely limited in his daily activities do to his severe edema/anasarca HEENT: Patient has no headache, patient has no diplopia, patient has no new changes in vision. However he had cataract surgery on both eyes within the last year and is unhappy with the results as he is unable to see well for reading still, even with bifocals. Patient has no problems with her ears nose or throat. Patient has all his own teeth with a few missing and at least one broken. Patient has no pharyngitis or history of thrush. Neck: Patient has no stiffness in the neck. Patient has no lymphadenopathy. Patient has no problems with his neck. Pulmonary: Patient has no shortness of breath, no cough, no expectoration of sputum. He has no pleurisy. Patient has no chest pain. Patient has no history of asthma or COPD. Cardiovascular: Patient has no chest pain. Patient has a history of mitral valve and aortic valve disease. He was evaluated at the [facility] last month and he told him that he was not a candidate for transcutaneous valvular repair or replacement. He also has diastolic congestive heart failure. Patient has no palpitations. Patient has no history of myocardial infarction. Patient has no history of coronary artery disease. Gastrointestinal: Patient has no history of hepatitis A, B or C. Patient has no history of peptic ulcer disease. Patient has no history of gastroesophageal reflux disease. Patient has no history of nausea, vomiting, or diarrhea. Patient has no history of hematemesis, hematochezia, or melena. Patient has no history of colitis. Does have colonic polyps which not all of them have been removed. Renal: Patient has a history of retroperitoneal fibrosis with end-stage renal disease. He did have bilateral ureteral surgery. No history of kidney stones. Genitourinary: Patient has no history of dysuria, frequency, or incontinence. Patient has no previous history of genitourinary problems. Despite high-dose Lasix he makes little to no urine. Musculoskeletal: Patient has no history of muscular skeletal problems. Neurologic: Patient has no history of stroke, no history of seizure, no history of TIA. Psychiatric: Patient has no history of psychiatric problems. The remainder of the complete review of systems was reviewed with patient and is as mentioned above otherwise negative. Allergies Coded Allergies: perfume (Verified Allergy, Severe, "stops me from breathing", 12/25/16) tiotropium (Verified Allergy, Severe, SHUTS HIM DOWN, 12/25/16) Home Medications Albuterol sulfate 2 puffs inhaled every 4 hours as needed for shortness of breath. Clobetasol applied topically as needed for psoriasis. Ergocalciferol 50,000 units weekly. Furosemide 240 mg twice a day. Atrovent 2 puffs inhaled 4 times a day. Levothyroxine 100 g daily at bedtime. Melatonin 20 mg daily at bedtime. Metoprolol succinate 25 mg daily. Midodrine 5 mg prior to dialysis. Prednisone 5 mg daily. Renvela 800 mg 3 times a day. Vitamin B complex 1 tab daily. PMH 1. 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 2. Severe oxygen-dependent COPD on chronic low-dose prednisone. 3. Mitral and aortic stenosis 4. Diastolic congestive heart failure 5. Hypertension with hypertensive heart disease and hypertensive nephrosclerosis. 6. Hypothyroidism. 7. Psoriasis. 8. Heavy Tobacco use disorder. 9. Dyslipidemia. 10. Chronic anemia 2nd to Renal failure. 11. Colon polyps. 12. History of atrial fibrillation. 13. PTSD with claustrophobia, cannot tolerate BPAP mask. 14. Likely sleep apnea. 15. Multilevel degenerative disc disease. 16. 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 Surgical History 1. Hernia repair. 2. Several ureterostomies. 3. AV fistula on left arm. 4. Knee surgery. 5. Bilateral cataract surgery. 6. Dual lumen dialysis catheter on right chest. Family History The patient's Mother from a brain tumor when the patient was 14 months old. The patient's Father who had heart disease and of stroke and several heart attacks. He was 65 when he . The patient's Half-brother who is healthy as far as he knows. The patient has three half-sisters who are estranged to the patient. Social History Hx Alcohol Use: Yes (former heavy drinker, rarely uses alcohol now) Hx Substance Use: No Hx Tobacco Use: Yes (1.5 PPD 40+ years, currently 0.5 PPD x2yrs) Smoking Status: Heavy Tobacco Smoker (1.5 PPD 40+ years, currently 0.5 PPD x 2 years) Additional Information Patient had his own [employer] and [employer] after high school. Then patient decided to join the [employer] at the age of 23 instead of being drafted. Patient stated in the [place] from the ages of [age]. 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 Patient done retired from the [employer] and came back to the [place] area worked several different jobs. 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 Exam Vital Signs Vital Sign - Last Date Time Temp Pulse Resp B/P Pulse Ox O2 Delivery O2 Flow Rate FiO2 12/25/16 20:10 36.3 52 20 100/60 95 Nasal Cannula 3.00 Exam General: Patient was seen on hemodialysis and is in no apparent distress. HEENT: Head is atraumatic normocephalic. Eyes: Pupils are equally round and reactive to light and accommodation. Extraocular muscles are intact. Sclera are white anicteric. Subconjunctival mucosa is pink. Ears and nose are unremarkable. Oropharynx: There is no mucosal lesions, there is no thrush, there is no pharyngitis. Neck: Is supple, there are no nodes, or masses or tenderness. Chest: Is clear to auscultation and percussion. There are no rales, rhonchi, wheezes or rubs. However, breath sounds are markedly diminished Heart: Rate, rhythm is regular. There is a grade 2/6 systolic ejection murmur heard best at the left sternal border. There is no rub or gallop. Abdomen: Good bowel sounds are present. Abdomen is soft, nontender, no organomegaly or masses were appreciated. Extremities: Are markedly edematous with weeping edema left greater than right. There are a few sores and scabs. There is no evidence of cellulitis. Neurologic: There are no focal neurological deficits. Cranial nerves II through XII are intact. There are no sensory or motor deficits. Although, patient exhibits significant weakness especially in the left and right lower extremities. Psychiatric: Patients mood is calm and shows no sign of agitation. Genital: Deferred Rectal: Deferred Lab and Diagnostics Result Diagram: 12/25/16 1540 Microbiology Name: DELFIN VALLE Age/Sex: 71/M Attend Dr: Ap Pearce DO Acct: [id number] Unit: [id number] Status: ILIA Scar Location: [facility] Re12/09/16 Disch: Specimen: [id number] Collected: 12/16/16 Status: COMP Req#: [id number] Received: 12/16/16 Source: BLOOD Sp Desc : MARILIA Jeffers Dr: Branden Villarreal MD Ordered: BC Comments: Collected by Nurse/Unit? Y/N Y Procedure Result Verified Site Microbiology EDU CULTURE BLOOD Final 12/21/16 NO GROWTH AFTER 5 DAYS Name: DELFIN VALLE Age/Sex: 71/M Attend Dr: Ap Pearce DO Acct: [id number] Unit: [id number] Status: REG [facility] Location: [facility] Re12/09/16 Disch: Specimen: [id number] Collected: 12/16/16 Status: COMP Req#: [id number] Received: 12/16/16 Source: SPUTUM EXP Sp Desc : Subm Dr: Ap Pearce DO Ordered: GRAM SPT REFLEX, SPUTUM CULTURE Comments: Collected by Nurse/Unit? Y/N Y Procedure Result Verified Site Microbiology EDU CULT SPUTUM GS Final 12/16/16-1501 SPT GRAM STAIN RARE POLYS RARE EPITHELIAL CELLS FEW MIXED NORMAL SHADI This Spec is of good Quality and acceptable for Cult RESPIRATORY CULTURE Final 12/18/16-0956 MODERATE NORMAL SHADI PRESENT X-Rays, CTs and MRIs PROCEDURE: X-RAY CHEST ONE VIEW, PORTABLE ([id number]) INDICATIONS: SHORT OF BREATH TECHNIQUE: One view of the chest was acquired. COMPARISON: [facility], CR, XR CHEST 1VW (PORTABLE), 11/29/2016, 13: 39. FINDINGS: Surgical changes and devices: None. Lungs and pleura: No pleural effusions or pneumothorax. There is increased moderate patchy bilateral airspace opacity. Mediastinum: Mediastinal contours appear normal. Heart size is normal. Bones and chest wall: No suspicious bony lesions. Overlying soft tissues appear unremarkable. IMPRESSION: Increase multifocal pneumonia. Dictated by: Jer Szymanski M.D. on 12/25/2016 at 18:28 Approved by: Jer Szymanski M.D. on 12/25/2016 at 18:28 Cardiac Echo Impressions Echocardiogram Report Name: DELFIN VALLE EStudy Date: 08/12/2016 Height: 73 in Hospital Exam Location: [facility] Weight: 19 6 lb Gender: Male BSA: 2.1 m2 : 1945 Age: 70 yrs BP: 113/68 mmHg Reason For Study: MV VEGETATIONS, CHF Ordering Physician: HOSPITALIST [facility] Performed By: Javi Vera Referring Physician: OLE JC Interpretation Summary The left ventricle is normal in size. The ejection fraction is estimated to be 60-65%. There is severe mitral annular calcification. There is a 1.0 cm x 1.2 cm mobile mass attached to the posterior leaflet. There is a small mobile mass seen to prolapse into the LA during systole that was not visualized on the prior echo. There is no associated mitral insuffency. This could be a small vegetation or a part of the calcific process. There is mild to moderate mitral regurgitation. There is moderate to severe mitral stenosis. There is moderate to severe aortic stenosis. The right ventricular systolic pressure is estimated at 62 mmHg assuming a right atrial pressure of 15 mm Hg. A BABAK is recommended to evaluatwe the vlaves further. 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 Pearce, for fluid overload and worsening peripheral edema. End-stage renal disease on dialysis with anasarca resulting in significant bilateral lower extremity edema and weeping edema, left greater than right - Patient is admitted for daily hemodialysis for 5 days for ultrafiltration and fluid removal - Dialysis M/W/F as at home - Dr. Pearce is following -Underwent 2 hours ultrafiltration on 11/29/16 COPD with recent exacerbation now stable -Continue nebulizers with S hand treatment 6 hours when necessary -Continue hand-held inhaler Recent Acute infection with Influenza A -Pt believes he received the flu vaccine this season -Tamiflu started on 12/01/2016 and patient completed 10 day course. Chronic diastolic congestive heart failure -Patient has atrial fibrillation -Patient has significant mitral stenosis and aortic valvular stenosis which is inoperable according to the [facility]. -Patient cardiac function appears to be stable at this time -Pt to see Cardiology in outpatient setting for rate control, afib prevention and diureti Recent Urinary tract infection -Pt prescribed 10 day course of Levaquin [address] Pearce completed prior to previous admission Mitral valve vegetation, this was previously discovered in July 2016 - Echo 08/12/16 showed mitral valve vegetation - Blood cultures x2- no growth to date Tobacco use, chronic - Pt smokes over 1/2 pack per day. - Pt counseled on smoking cessation. Hypothyroidism, chronic - No change to home levothyroxine Hypertension, chronic - No change to home dose of Coreg and Norvasc CODE STATUS: DNR/DNI This was discussed with patient on 12/02/2016 with Palliative Care. Pain Evaluation: Adequate Pain Control GI Prophylaxis: Proton Pump Inhibitor VTE Prophylaxis: Sub-Q Heparin (Unfractionated) Resuscitation Status: DNR/DNI:Do Not Resuscitate/Intubate Axel Nielsen MD Dec 25, 2016 22:13
[2016-12-26] VITALS (10 sets, daily range): BP systolic 88–126; BP diastolic 56–81; PULSE 45–81; RESP 18–22; O2SAT 96–99
[2016-12-26] MEDS ORDERED: HYDROmorphone 0.5 mg/0.5 mL iSecure Syringe IVPUSH PRN (01:55)
--- NOTE | 2016-12-26 03:45 | NUR ---
pain/Behavior c/o 8-/10 leg pain worst on the left weeping leg. paged night hospitalist and gave 0.25 mg IVP Dilaudid and PO Tylenol. pt took Dilaudid, and later on state "I usually don't take narcotic." Dilaudid wasn't effective. pt state " how come a DR. prescribe medication before they see me. I need something topical to protect it.I will not take anything if they don't see me first." pt has been seen by wound nurse, and they will see him again this morning. paged night hospitalist. MD state she is busy by that time, but will try to stop by if she can. later on the shift pt becomes calm and pleasant. request another Dilaudid for pain, which report pain reduced, but didn't reach his goal 5/10. will continue to monitor.
--- NOTE | 2016-12-26 05:22 | NUR ---
Skin Tear pt has very fragile skin. skin tear on his left upper arm. pt state he way lying on the left side and left arm was underneath. pt refused to put dressing on and state "that will make it worst. it will heal by it self." will continue to monitor.
[2016-12-26] MEDS: Ipratropium HFA 200 Puff 12.9 Gm Inhaler INHALATION SCH ×4 (06:30→21:26)
--- NOTE | 2016-12-26 06:42 | NUR ---
N/V pt puked. gave IVP Zofran which was effective. pt state the Dilaudid is making him nauseated. Will continue to monitor.
[2016-12-26 07:18] LABS: BASOPHILS % (AUTO) 0.1 % (0-3); EOSINOPHILS % (AUTO) 1.8 % (0-5); MONOCYTES % (AUTO) 9.9 % (4-12); Mean Corpuscular Hemoglobin 27.5 pg (27.0-35.0); Mean Corpuscular Volume 94.8 fL (81-100); NEUTROPHILS % (AUTO) 77.8 % (40-74); Platelet Count 116 bil/L (150-400)
[2016-12-26] MEDS: Pantoprazole 20 mg ER24 Tablet PO SCH (07:30)
[2016-12-26 07:42] LABS: Magnesium 1.8 mg/dL (1.6-2.6); Phosphorus 5.9 mg/dL (2.5-4.9)
[2016-12-26] MEDS: Albuterol-Ipratropium 3 mL Inhalation Solution NEB PRN ×3 (07:43→22:05)
[2016-12-26] MEDS ORDERED: Vancomycin Inj 1,000 MG in IV Premix 1 EACH IV ONE (08:00)
[2016-12-26] MEDS: Heparin 5,000 Unit/mL Inj SUBQ SCH ×2 (08:30→19:47)
--- NOTE | 2016-12-26 11:45 | PCM.PNMED ---
Subjective Date of Service Dec 26, 2016 Subjective unable to sleep at night due to severe pain on left leg. He requested to have some cream to apply on his left leg. HD yesterday with 5 L fluid removal. remains having swollen legs but no more weeping today. IV Vancomycin started Exam Vital Signs Vital Sign - Last Date Time Temp Pulse Resp B/P Pulse Ox O2 Delivery O2 Flow Rate FiO2 12/26/16 08:22 Supplement Oxygen 12/26/16 08:00 36.5 81 20 108/61 97 4.00 Intake and Output 12/25/16 12/25/16 12/26/16 Cumulative From/Thru 15:00 23:00 07:00 12/25/16 08:00 - 12/26/16 05:20 Intake Total 360 ml 450 ml 810 ml Output Total 5000 ml 0 ml 0 ml 5000 ml Balance -5000 ml 360 ml 450 ml -4190 ml Intake Oral 360 ml 450 ml 810 ml Output Urine Total 0 ml 0 ml 0 ml Ultrafiltrate 5000 ml 5000 ml # Bowel Movements 1 1 2 Exam General: Alert, Oriented X3, Cooperative, No Acute Distress,chronically ill- appearing Head: Normal Eyes: PERRLA, EOMI, Scleral Anicteric Mouth: Mouth Normal, Mucous Membr Moist/[place], poor dentition. Neck: Supple, No Thyromegaly, (+) JVD Chest & Lungs: Poor air entry B/L, expiratory wheezing. Cardiovascular: Regular Rate/Rhythm, Normal S1, Normal S2, distant heart sound. Abdomen: Non-tender, Non-distended, No masses, No hepatosplenomegaly Extremities: 4+ severe pitting edema confined to the lower extremities, AV fistula left arm. Lab and Diagnostics Result Diagram: 12/26/1662912/26/16629 Microbiology Name: KASSANDRA CARNEY Age/Sex: 71/M Attend Dr: [facility]ce DO [id number] Unit: [id number] Status: REG RCR Location: [facility] Re12/09/16 Disch: Specimen: [id number] Collected: 12/16/16 Status: COMP Req#: [id number] Received: 12/16/16 Source: BLOOD Sp Desc : MARILIA Jeffers Dr: Branden Villarreal MD Ordered: TAL Comments: Collected by Nurse/Unit? Y/N Y Procedure Result Verified Site Microbiology EDU CULTURE BLOOD Final 12/21/16-1419 NO GROWTH AFTER 5 DAYS Name: KASSANDRA CARNEY Age/Sex: 71/M Attend Dr: Ap Pearce DO Acct: [id number] Unit: [id number] Status: REG R Location: [facility] Re12/09/16 Disch: Specimen: [id number] Collected: 12/16/16 Status: COMP Req#: [id number] Received: 12/16/167085 Source: SPUTUM EXP Sp Desc : Subm Dr: Ap Pearce DO Ordered: GRAM SPT REFLEX, SPUTUM CULTURE Comments: Collected by Nurse/Unit? Y/N Y Procedure Result Verified Site Microbiology EDU CULT SPUTUM GS Final 12/16/16-1501 SPT GRAM STAIN RARE POLYS RARE EPITHELIAL CELLS FEW MIXED NORMAL SHADI This Spec is of good Quality and acceptable for Cult RESPIRATORY CULTURE Final 12/18/16-0956 MODERATE NORMAL SHADI PRESENT X-Rays, CTs and MRIs PROCEDURE: X-RAY CHEST ONE VIEW, PORTABLE ([id number]) INDICATIONS: SHORT OF BREATH TECHNIQUE: One view of the chest was acquired. COMPARISON: [facility], CR, XR CHEST 1VW (PORTABLE), 11/29/2016, 13: 39. FINDINGS: Surgical changes and devices: None. Lungs and pleura: No pleural effusions or pneumothorax. There is increased moderate patchy bilateral airspace opacity. Mediastinum: Mediastinal contours appear normal. Heart size is normal. Bones and chest wall: No suspicious bony lesions. Overlying soft tissues appear unremarkable. IMPRESSION: Increase multifocal pneumonia. Dictated by: Jer Szymanski M.D. on 12/25/2016 at 18:28 Approved by: Jer Szymanski M.D. on 12/25/2016 at 18:28 Cardiac Echo Impressions Echocardiogram Report Name: KASSANDRA CARNEY EStudy Date: 08/12/2016 Height: 73 in Hospital Exam Location: [facility] Weight: 19 6 lb Gender: Male BSA: 2.1 m2 : 1945 Age: 70 yrs BP: 113/68 mmHg Reason For Study: MV VEGETATIONS, CHF Ordering Physician: HOSPITALIST [facility] Performed By: Javi Vera Referring Physician: OLE JC Interpretation Summary The left ventricle is normal in size. The ejection fraction is estimated to be 60-65%. There is severe mitral annular calcification. There is a 1.0 cm x 1.2 cm mobile mass attached to the posterior leaflet. There is a small mobile mass seen to prolapse into the LA during systole that was not visualized on the prior echo. There is no associated mitral insuffency. This could be a small vegetation or a part of the calcific process. There is mild to moderate mitral regurgitation. There is moderate to severe mitral stenosis. There is moderate to severe aortic stenosis. The right ventricular systolic pressure is estimated at 62 mmHg assuming a right atrial pressure of 15 mm Hg. A BABAK is recommended to evaluatwe the vlaves further. Assessment & Plan 1. Severe fluid overload secondary to CHF and ESRD 2. Suspected lower extremities cellulitis. 3. ESRD on HD q MWF. 4. COPD on home O2 5. Tobacco abuse. 6. Intradialytic hypotension. Plan: Daily HD for 4 more days. Will give 25 gm of mannitol and 5 mg of midodrine at 1st and 3rd hour of hemodialysis. Continue IV vancomycin. Continue wound care. GI Prophylaxis: Proton Pump Inhibitor VTE Prophylaxis: Sub-Q Heparin (Unfractionated) Resuscitation Status: DNR/DNI:Do Not Resuscitate/Intubate Branden Villarreal MD Dec 26, 2016 11:45
[2016-12-26] MEDS: Mannitol 25% 12.5 Gm/50 mL Inj IVPUSH SCH ×2 (12:30→13:30)
[2016-12-26] MEDS ORDERED: fentaNYL-PF 50 mCg/mL 2 mL Inj IVPUSH ONE (13:15)
--- NOTE | 2016-12-26 13:29 | NUR ---
Social Work: Initial Assessment Attempt Data & Assessment: EMR Reviewed. Patient is a 71 y/o male that admitted for Anasarca. SW met with patient at bedside and attempted to complete initial assessment and patient requested that the SW come back at another time because it wasn't a good time due to Dialysis starting soon. SW will follow-up with patient after dialysis. SW will continue to follow. Sheila Nuñez, KATHY, JOCELYN
--- NOTE | 2016-12-26 14:44 | NUR ---
Pain- Patient complaining of pain and tenderness in legs L>R. He said he has been unable to rest because of the pain. He said the Dilaudid made him "sick", and said the Tylenol doesn't do "anything." He refused some of his ordered meds this am because he doesn't take them routinely. Encouraged him to keep legs up on bed and elevated. Despite many attempts to get him more comfortable, nothing appears to have worked for his discomfort.
--- NOTE | 2016-12-26 14:56 | NUR ---
Dialysis note Competed 2 hrs of HD before pts stating he wanted to end tx. 2 15 g needles placed to MALLORIE arm. QB 350. Goal initiated at 5kg per pt request and was decreased twice over first two hrs. of decreasing BP. Mannitol and Midodrine given per MD orders. Pt then began cramping, but was not sure if it was cramping or just intense pain of his LE. Asked to stop tx before was able to given newly ordered Fentanly dose per Dr. Clayton. Alicja 2300ml net UF removed. See DTR for complete vitals. Dr Clayton aware that pt ended tx and UF removed. Fentanyl pushed thru art needle before removed. [place] removed. Medication did seem to help, though pt would not articulate a decrease in pain scale. Back to room stable.
--- NOTE | 2016-12-26 16:46 | NUR ---
Social Work: Initial Assessment Data & Assessment: EMR Reviewed. See Initial Assessment. Patient is a 71 y/o male that admitted due to Anasarca. SW met with patient to complete initial assessment, discuss discharge planning, and SW role explained. Patient does not have a re-admit score. Patient's NOK is Juliet Valle [phone]. Patient does not have a DPOA and declined information. Patient's primary insurance is Medicare with [employer] as secondary. Patient does not have VA or LTC benefits. Patient reports that he is independent at baseline with ADL's. Patient lives in a mobile home with his family and there is fives steps to enter. Patient does not have any HH or SNF history. Patient has a WC and elevated toilet seat. SW worte her nunber on patient's white board. Patient does not have an identified SW need at the current time. It is likely that the patient will discharge home via POV. SW will continue to follow. Plan: Patient will discharge home no needs via POV when medically stable. SW will continue to follow. Adriel Nuñez LMSW, RAFFI Addendum: 12/26/16 at 1654 by ADRIEL KING Amended: Links added.
[2016-12-26] MEDS: predniSONE 5 mg Tablet PO SCH (19:45)
[2016-12-26] MEDS: MeTOProlol XL 25 mg ER24 Tablet PO SCH (19:45)
[2016-12-26] MEDS: Vitamin B Complex/Vit C Tablet PO SCH (19:46)
[2016-12-26] MEDS ORDERED: diphenhydrAMINE 25 mg Capsule PO PRN (21:25)
--- NOTE | 2016-12-26 22:09 | NUR ---
Pain and Diet patient has been complaining of Bilat lower leg pain related to swelling/anasarca. At worst rating 6/10, tolerable 4/10. PO Tylenol has been effective PRN. Patient non-compliant with Renal Diet ordered. patient stating, "I'm not eating hospital food. I son is bringing something in for me." patient's son brought [employer] fast food in for patient's dinner. Dr Nielsen did come in and spent 30 minutes discussing Advanced Care Planning with patient.
[2016-12-27] VITALS (7 sets, daily range): BP systolic 93–107; BP diastolic 53–71; PULSE 55–88; RESP 18–22; O2SAT 95–98
--- NOTE | 2016-12-27 00:47 | PCM.PNMED ---
Subjective Date of Service Dec 27, 2016 Subjective Patient has been uncomfortable for most of the day. He finally got comfortable at late this afternoon. Is complaining of discomfort in his lower extremity is. Exam Vital Signs Vital Sign - Last Date Time Temp Pulse Resp B/P Pulse Ox O2 Delivery O2 Flow Rate FiO2 12/26/16 22:05 65 18 98 Nasal Cannula 4.00 12/26/16 19:14 36.9 89/59 Intake and Output 12/26/16 12/26/16 12/27/16 Cumulative From/Thru 15:00 23:00 07:00 12/25/16 08:00 - 12/26/16 21:51 Intake Total 400 ml 1210 ml Output Total 2300 ml 7300 ml Balance -2300 ml 400 ml -6090 ml Intake Oral 400 ml 1210 ml Output Urine Total 0 ml Ultrafiltrate 2300 ml 7300 ml # Bowel Movements 2 Exam General: Patient was seen on hemodialysis and is in no apparent distress. HEENT: Head is atraumatic normocephalic. Eyes: Pupils are equally round and reactive to light and accommodation. Extraocular muscles are intact. Sclera are white anicteric. Subconjunctival mucosa is pink. Ears and nose are unremarkable. Oropharynx: There is no mucosal lesions, there is no thrush, there is no pharyngitis. Neck: Is supple, there are no nodes, or masses or tenderness. Chest: Is clear to auscultation and percussion. There are no rales, rhonchi, wheezes or rubs. However, breath sounds are markedly diminished Heart: Rate, rhythm is regular. There is a grade 2/6 systolic ejection murmur heard best at the left sternal border. There is no rub or gallop. Abdomen: Good bowel sounds are present. Abdomen is soft, nontender, no organomegaly or masses were appreciated. Extremities: Are markedly edematous with weeping edema left greater than right. There are a few sores and scabs. There is some early evidence of cellulitis in the anterior aspect of the left lower extremity.. Neurologic: There are no focal neurological deficits. Cranial nerves II through XII are intact. There are no sensory or motor deficits. Although, patient exhibits significant weakness especially in the left and right lower extremities. Psychiatric: Patients mood is calm and shows no sign of agitation. Genital: Deferred Rectal: Deferred Lab and Diagnostics Result Diagram: 12/26/1662912/26/16629 Microbiology Name: DELFIN VALLE Age/Sex: 71/M Attend Dr: Ap Pearce DO Acct: [id number] Unit: [id number] Status: REG Scar Location: [facility] Re12/09/16 Disch: Specimen: [id number] Collected: 12/16/16 Status: COMP Req#: [id number] Received: 12/16/16 Source: BLOOD Sp Desc : MARILIA Jeffers Dr: Branden Villarreal MD Ordered: Comments: Collected by Nurse/Unit? Y/N Y Procedure Result Verified Site Microbiology EDU CULTURE BLOOD Final 12/21/16-1420 NO GROWTH AFTER 5 DAYS Name: DELFIN VALLE Age/Sex: 71/M Attend Dr: Ap Pearce DO Acct: [id number] Unit: [id number] Status: ILIA GONZALEZ Location: [facility] Re12/09/16 Disch: Specimen: [id number] Collected: 12/16/16-1199 Status: COMP Req#: [id number] Received: 12/16/165503 Source: SPUTUM EXP Sp Desc : Subm Dr: Ap Pearce DO Ordered: GRAM SPT REFLEX, SPUTUM CULTURE Comments: Collected by Nurse/Unit? Y/N Y Procedure Result Verified Site Microbiology EDU CULT SPUTUM GS Final 12/16/16-1501 SPT GRAM STAIN RARE POLYS RARE EPITHELIAL CELLS FEW MIXED NORMAL SHADI This Spec is of good Quality and acceptable for Cult RESPIRATORY CULTURE Final 12/18/16-0956 MODERATE NORMAL SHADI PRESENT X-Rays, CTs and MRIs PROCEDURE: X-RAY CHEST ONE VIEW, PORTABLE ([id number]) INDICATIONS: SHORT OF BREATH TECHNIQUE: One view of the chest was acquired. COMPARISON: [facility], CR, XR CHEST 1VW (PORTABLE), 11/29/2016, 13: 39. FINDINGS: Surgical changes and devices: None. Lungs and pleura: No pleural effusions or pneumothorax. There is increased moderate patchy bilateral airspace opacity. Mediastinum: Mediastinal contours appear normal. Heart size is normal. Bones and chest wall: No suspicious bony lesions. Overlying soft tissues appear unremarkable. IMPRESSION: Increase multifocal pneumonia. Dictated by: Jer Szymanski M.D. on 12/25/2016 at 18:28 Approved by: Jer Szymanski M.D. on 12/25/2016 at 18:28 Cardiac Echo Impressions Echocardiogram Report Name: DELFIN VALLE EStudy Date: 08/12/2016 Height: 73 in Hospital Exam Location: [facility] Weight: 19 6 lb Gender: Male BSA: 2.1 m2 : 1945 Age: 70 yrs BP: 113/68 mmHg Reason For Study: MV VEGETATIONS, CHF Ordering Physician: HOSPITALIST [facility] Performed By: Javi Vera Referring Physician: OLE JC Interpretation Summary The left ventricle is normal in size. The ejection fraction is estimated to be 60-65%. There is severe mitral annular calcification. There is a 1.0 cm x 1.2 cm mobile mass attached to the posterior leaflet. There is a small mobile mass seen to prolapse into the LA during systole that was not visualized on the prior echo. There is no associated mitral insuffency. This could be a small vegetation or a part of the calcific process. There is mild to moderate mitral regurgitation. There is moderate to severe mitral stenosis. There is moderate to severe aortic stenosis. The right ventricular systolic pressure is estimated at 62 mmHg assuming a right atrial pressure of 15 mm Hg. A BABAK is recommended to evaluatwe the vlaves further. 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 End-stage renal disease on dialysis with anasarca resulting in significant bilateral lower extremity edema and weeping edema, left greater than right - Patient is admitted for daily hemodialysis for 5 days for ultrafiltration and fluid removal - Dialysis M/W/F as at home - Dr. Pearce is following -Underwent 2 hours ultrafiltration on 11/29/16 Cellulitis of the lower extremities -IV vancomycin started, will continue COPD with recent exacerbation now stable -Continue nebulizers with S hand treatment 6 hours when necessary -Continue hand-held inhaler Recent Acute infection with Influenza A -Pt believes he received the flu vaccine this season -Tamiflu started on 12/01/2016 and patient completed 10 day course. Chronic diastolic congestive heart failure -Patient has atrial fibrillation -Patient has significant mitral stenosis and aortic valvular stenosis which is inoperable according to the [facility]. -Patient cardiac function appears to be stable at this time -Pt to see Cardiology in outpatient setting for rate control, afib prevention and diureti Recent Urinary tract infection -Pt prescribed 10 day course of Levaquin [address] Pearce completed prior to previous admission Mitral valve vegetation, this was previously discovered in July 2016 - Echo 08/12/16 showed mitral valve vegetation - Blood cultures x2- no growth to date Tobacco use, chronic - Pt smokes over 1/2 pack per day. - Pt counseled on smoking cessation. Hypothyroidism, chronic - No change to home levothyroxine Hypertension, chronic - No change to home dose of Coreg and Norvasc Advanced care planning: -I spent over half an hour with the patient and his son and [id number] at bedside discussing advanced care planning for the patient as he appears to have been miserable all day long. I reminded him that his aortic valve abnormality is not repairable and his prognosis is very poor. We discussed end-of-life treatment possibilities and will likely consult palliative care on Wednesday. Meanwhile continue daily hemodialysis with ultrafiltration as per nephrology. Will follow Pain Evaluation: Adequate Pain Control GI Prophylaxis: Proton Pump Inhibitor VTE Prophylaxis: Sub-Q Heparin (Unfractionated) Resuscitation Status: DNR/DNI:Do Not Resuscitate/Intubate Axel Nielsen MD Dec 27, 2016 00:47
[2016-12-27] MEDS: Albuterol-Ipratropium 3 mL Inhalation Solution NEB PRN ×2 (02:01→09:24)
--- NOTE | 2016-12-27 05:05 | NUR ---
Pain/BP C/o 7/10 BLE pain L>R . administered PO PRN Tylenol. pt report pain relief on rate of 4-5/ 10 which is his goal. pt has been running low BP and pulse. AT 2340 BP 88/56, P 45; After 3 minutes and lying position BP 97/62, P 45. At 0050 BP 95/53, P 71. AT 0500 BP 93/56, P. 55. Asymptomatic. night hospitalist notified. will continue to monitor.
[2016-12-27] MEDS: Ipratropium HFA 200 Puff 12.9 Gm Inhaler INHALATION SCH ×2 (06:14→11:30)
[2016-12-27 07:05] LABS: BASOPHILS % (AUTO) 0.1 % (0-3); EOSINOPHILS % (AUTO) 1.3 % (0-5); MONOCYTES % (AUTO) 9.7 % (4-12); Mean Corpuscular Hemoglobin 27.2 pg (27.0-35.0); Mean Corpuscular Volume 94.9 fL (81-100); NEUTROPHILS % (AUTO) 80.2 % (40-74); Platelet Count 120 bil/L (150-400)
[2016-12-27] MEDS: Pantoprazole 20 mg ER24 Tablet PO SCH (07:30)
[2016-12-27] MEDS: Heparin 5,000 Unit/mL Inj SUBQ SCH (08:30)
--- NOTE | 2016-12-27 11:30 | NUR ---
status MD mckeon paged this am to notify that pt would like to be discharged today. Paged again at 1125. Son at bedside. Addendum: 12/27/16 at 1144 by QUENTIN VARGAS RN notified that pt is stating he is leaving today. to come and speak with pt. notified that pt has been refusing all meds except nebs and lasix this am.
--- NOTE | 2016-12-27 12:54 | PCM.DIMED ---
Discharge Instructions Date of Service Dec 27, 2016 Dates of Hospitalization Dec 25, 2016 at 08:14 Discharge Diagnosis Discharge Diagnosis ESRD with Anasarca Diet Renal Diet Activity No restrictions (May increase activity gradually as tolerated.) Call your provider Fever or Chills, Shortness of breath, Bleeding, Chest pain, Vomitting, Excessive diarrhea, Weakness (unilateral), Other Patient Instructions Follow-up Provider: Ap Pearce DO Follow-up with PCP in: 1 week Attending's Statement Patient is wanting Hospice Care GiaAxel MD Dec 27, 2016 12:54
--- NOTE | 2016-12-27 13:26 | NUR ---
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 Seen by Dr. Clayton prior to dc. Reviewed discharge instructions and patient verbalized understanding. All belongings with pt. IV dc'd without complication.
--- NOTE | 2016-12-27 13:34 | PCM.PNMED ---
Subjective Date of Service Dec 27, 2016 Subjective Pt has refused HD today. He was not able to sleep last night. He has considered hospice. He would like to go home and return back to [facility] for HD in am. Exam Vital Signs Vital Sign - Last Date Time Temp Pulse Resp B/P Pulse Ox O2 Delivery O2 Flow Rate FiO2 12/27/16 12:27 71 22 101/54 95 Nasal Cannula 4.00 12/27/16 07:45 37.0 Intake and Output 12/26/16 12/26/16 12/27/16 Cumulative From/Thru 15:00 23:00 07:00 12/25/16 08:00 - 12/27/16 06:56 Intake Total 400 ml 200 ml 1410 ml Output Total 2300 ml 0 ml 7300 ml Balance -2300 ml 400 ml 200 ml -5890 ml Intake Oral 400 ml 200 ml 1410 ml Output Urine Total 0 ml 0 ml Ultrafiltrate 2300 ml 7300 ml # Bowel Movements 2 4 Exam General: Alert, Oriented X3, Cooperative, No Acute Distress,chronically ill- appearing Head: Normal Eyes: PERRLA, EOMI, Scleral Anicteric Mouth: Mouth Normal, Mucous Membr Moist/[place], poor dentition. Neck: Supple, No Thyromegaly, (+) JVD Chest & Lungs: Poor air entry B/L, expiratory wheezing. Cardiovascular: Regular Rate/Rhythm, Normal S1, Normal S2, distant heart sound. Abdomen: Non-tender, Non-distended, No masses, No hepatosplenomegaly Extremities: 4+ severe pitting edema confined to the lower extremities, AV fistula left arm. Lab and Diagnostics Result Diagram: 12/27/16 0635 12/27/16 0635 Microbiology Name: KASSANDRA CARNEY Age/Sex: 71/M Attend Dr: Ap Pearce DO Acct: [id number] Unit: [id number] Status: REG RCR Location: [facility] Re12/09/16 Disch: Specimen: [id number] Collected: 12/16/16 Status: COMP Req#: [id number] Received: 12/16/16 Source: BLOOD Sp Desc : MARILIA Jeffers Dr: Branden Villarreal MD Ordered: TAL Comments: Collected by Nurse/Unit? Y/N Y Procedure Result Verified Site Microbiology EDU CULTURE BLOOD Final 12/21/16-142 NO GROWTH AFTER 5 DAYS Name: ROMMELKASSANDRA Age/Sex: 71/M Attend Dr: Ap Pearce DO Acct: [id number] Unit: [id number] Status: REG RCR Location: [facility] Re12/09/16 Disch: Specimen: [id number] Collected: 12/16/16 Status: COMP Req#: [id number] Received: 12/16/16 Source: SPUTUM EXP Sp Desc : Subm Dr: Ap Pearce DO Ordered: GRAM SPT REFLEX, SPUTUM CULTURE Comments: Collected by Nurse/Unit? Y/N Y Procedure Result Verified Site Microbiology EDU CULT SPUTUM GS Final 12/16/16-1501 SPT GRAM STAIN RARE POLYS RARE EPITHELIAL CELLS FEW MIXED NORMAL SHADI This Spec is of good Quality and acceptable for Cult RESPIRATORY CULTURE Final 12/18/16-0956 MODERATE NORMAL SHADI PRESENT X-Rays, CTs and MRIs PROCEDURE: X-RAY CHEST ONE VIEW, PORTABLE ([id number]) INDICATIONS: SHORT OF BREATH TECHNIQUE: One view of the chest was acquired. COMPARISON: [facility], CR, XR CHEST 1VW (PORTABLE), 11/29/2016, 13: 39. FINDINGS: Surgical changes and devices: None. Lungs and pleura: No pleural effusions or pneumothorax. There is increased moderate patchy bilateral airspace opacity. Mediastinum: Mediastinal contours appear normal. Heart size is normal. Bones and chest wall: No suspicious bony lesions. Overlying soft tissues appear unremarkable. IMPRESSION: Increase multifocal pneumonia. Dictated by: Jer Szymanski M.D. on 12/25/2016 at 18:28 Approved by: Jer Szymanski M.D. on 12/25/2016 at 18:28 Cardiac Echo Impressions Echocardiogram Report Name: KASSANDRA CARNEY EStudy Date: 08/12/2016 Height: 73 in Hospital Exam Location: [facility] Weight: 19 6 lb Gender: Male BSA: 2.1 m2 : 1945 Age: 70 yrs BP: 113/68 mmHg Reason For Study: MV VEGETATIONS, CHF Ordering Physician: HOSPITALIST [facility] Performed By: Javi Vera Referring Physician: OLE JC Interpretation Summary The left ventricle is normal in size. The ejection fraction is estimated to be 60-65%. There is severe mitral annular calcification. There is a 1.0 cm x 1.2 cm mobile mass attached to the posterior leaflet. There is a small mobile mass seen to prolapse into the LA during systole that was not visualized on the prior echo. There is no associated mitral insuffency. This could be a small vegetation or a part of the calcific process. There is mild to moderate mitral regurgitation. There is moderate to severe mitral stenosis. There is moderate to severe aortic stenosis. The right ventricular systolic pressure is estimated at 62 mmHg assuming a right atrial pressure of 15 mm Hg. A BABAK is recommended to evaluatwe the vlaves further. Assessment & Plan 1. Severe fluid overload secondary to CHF and ESRD 2. Suspected lower extremities cellulitis. 3. ESRD on HD q MWF. 4. COPD on home O2 5. Tobacco abuse. 6. Intradialytic hypotension. 7. Severe MS/. Plan: Unfortunately, pt has not been comfortable since the admission. He felt drained after HD yesterday. He would like to be discharged today. He stated that he will return to [facility] for [facility] treatment. Overall his prognosis is extremely poor, the patient has considered hospice. He will discuss with his family and friends. I will notify his primary fire fighter, Dr. Pearce, on this issue. GI Prophylaxis: Proton Pump Inhibitor VTE Prophylaxis: Sub-Q Heparin (Unfractionated) Resuscitation Status: DNR/DNI:Do Not Resuscitate/Intubate Branden Villarreal MD Dec 27, 2016 13:34
--- NOTE | 2016-12-27 14:15 | NUR ---
Social Work Note: Discharge Data& Assessment: Delfin Valle is a 71 year old male admitted on 12/25/2016 for anasarca. Per RN pt was determined to leave the hospital today and was discharged before SW had an opportunity to check in prior to pt leaving. Pt plans to continue HD at the kidney center tomorrow morning as he has refused his tx today. Per Nephrology MD, pt will think about whether or not hospice services are something he would like to pursue, and plans to discuss this option with family and friends. Pt discharged home via wheelchair and home 02 with pt son. No other discharge needs identified. Plan: Per pt is stable enough for discharge. Pt was discharged home with son in wheelchair with home 02 and follow up for continued dialysis at [facility] tomorrow. No other discharge needs identified. PRAVEEN Hobson
[2017-01-01] MEDS ORDERED: Ergocalciferol (Vit D2) 50,000 Unit Capsule PO SCH (20:30)
--- NOTE | 2017-01-04 12:52 | PCM.DC.MED ---
Discharge Summary Date of Service Dec 27, 2016 Dates of Hospitalization Date of Hospital Admission Dec 25, 2016 at 08:14 Date of Discharge: Dec 27, 2016 Providers: Admitting Physician: Axel Nielsen MD Primary Care Physician: Sera Attending Physician: Axel Nielsen MD Diagnosis at Time of Discharge Diagnosis at Time of Discharge ESRD with Anasarca Consultations Nephrology Procedures XRay, CTs & MRIs PROCEDURE: X-RAY CHEST ONE VIEW, PORTABLE ([id number]) INDICATIONS: SHORT OF BREATH TECHNIQUE: One view of the chest was acquired. COMPARISON: [facility], CR, XR CHEST 1VW (PORTABLE), 11/29/2016, 13: 39. FINDINGS: Surgical changes and devices: None. Lungs and pleura: No pleural effusions or pneumothorax. There is increased moderate patchy bilateral airspace opacity. Mediastinum: Mediastinal contours appear normal. Heart size is normal. Bones and chest wall: No suspicious bony lesions. Overlying soft tissues appear unremarkable. IMPRESSION: Increase multifocal pneumonia. Dictated by: Jer Szymanski M.D. on 12/25/2016 at 18:28 Approved by: Jer Szymanski M.D. on 12/25/2016 at 18:28 Cardiac Echo Impression Echocardiogram Report Name: DELFIN VALLE EStudy Date: 08/12/2016 Height: 73 in Hospital Exam Location: [facility] Weight: 19 6 lb Gender: Male BSA: 2.1 m2 : 1945 Age: 70 yrs BP: 113/68 mmHg Reason For Study: MV VEGETATIONS, CHF Ordering Physician: HOSPITALIST [facility] Performed By: Javi Vera Referring Physician: OLE JC Interpretation Summary The left ventricle is normal in size. The ejection fraction is estimated to be 60-65%. There is severe mitral annular calcification. There is a 1.0 cm x 1.2 cm mobile mass attached to the posterior leaflet. There is a small mobile mass seen to prolapse into the LA during systole that was not visualized on the prior echo. There is no associated mitral insuffency. This could be a small vegetation or a part of the calcific process. There is mild to moderate mitral regurgitation. There is moderate to severe mitral stenosis. There is moderate to severe aortic stenosis. The right ventricular systolic pressure is estimated at 62 mmHg assuming a right atrial pressure of 15 mm Hg. A BABAK is recommended to evaluatwe the vlaves further. 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 He has a history of mitral and aortic stenosis, with chronic diastolic congestive heart failure and severe O2 dependent COPD on chronic prednisone with continued smoking who is a direct admit by his sales support rep, Dr. Pearce, for fluid overload and worsening peripheral edema. He reports worsening shortness of breath, pulmonary congestion, and pitting edema of his legs with weeping, L>R. His last hemodialysis session was on Wednesday in which 1 L of fluid was removed. He denies any headache, chest pain , nausea, vomiting, fever, chills, diarrhea or constipation. Patient was directly admitted from the dialysis unit by Dr. Pearce to the hospital service. . Hospital Course . 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 Pearce, for fluid overload and worsening peripheral edema. End-stage renal disease on dialysis with anasarca resulting in significant bilateral lower extremity edema and weeping edema, left greater than right - Patient is admitted for daily hemodialysis for 5 days for ultrafiltration and fluid removal - Dialysis M/W/F as at home - Dr. Pearce is following -Underwent 2 hours ultrafiltration on 11/29/16 Cellulitis of the lower extremities -IV vancomycin started, will continue COPD with recent exacerbation now stable -Continue nebulizers with S hand treatment 6 hours when necessary -Continue hand-held inhaler Recent Acute infection with Influenza A -Pt believes he received the flu vaccine this season -Tamiflu started on 12/01/2016 and patient completed 10 day course. Chronic diastolic congestive heart failure -Patient has atrial fibrillation -Patient has significant mitral stenosis and aortic valvular stenosis which is inoperable according to the [facility]. -Patient cardiac function appears to be stable at this time -Pt to see Cardiology in outpatient setting for rate control, afib prevention and diureti Recent Urinary tract infection -Pt prescribed 10 day course of Levaquin [address] Pearce completed prior to previous admission Mitral valve vegetation, this was previously discovered in July 2016 - Echo 08/12/16 showed mitral valve vegetation - Blood cultures x2- no growth to date Tobacco use, chronic - Pt smokes over 1/2 pack per day. - Pt counseled on smoking cessation. Disposition: Patient was extremely unhappy in the hospital and their was nothing the staff could do, that he would allow, that would help the patient get comfortable. He was dressed and ready for discharge early in the morning despite not completing the plan for five consecutive days of hemodialysis. Patient was seen by nephrology, Dr. Clayton, and discharged home. Exam Exam The patient was seen and examined by the nephrology service, Dr. Clayton, but was not seen by the hospitalist service the day of discharge. Patient was dressed and demanding to go home. There, after a call to the hospitalists service, patient was released by Nephrology, Dr. Clayton who saw and examined the patient the day of discharge. Test 12/25/16 15:30 12/25/16 15:40 12/26/16 06:30 12/27/16 06:35 Prothrombin Time 11.3sec (8.1-12.5) Prothromb Time International Ratio 1.05ratio Hemoglobin A1c 5.4% (4.8-5.6) Procalcitonin 0.32ng/mL (See Comment) Phosphorus Level 5.9mg/dL (2.5-4.9) Magnesium Level 1.8mg/dL (1.6-2.6) White Blood Count 10.3th/mm3 (3.8-10.1) Red Blood Count 3.75mil/mm3 (4.40-5.80) Hemoglobin 10.2g/dL (13.8-17.2) Hematocrit 35.6% (41.0-50.0) Mean Corpuscular Volume 94.9fL (81-100) Mean Corpuscular Hemoglobin 27.2pg (27.0-35.0) Mean Corpuscular Hemoglobin Concent 28.7% (32.0-37.0) Red Cell Distribution Width 20.1% (12.3-15.4) Platelet Count 120bil/L (150-400) Neutrophils (%) (Auto) 80.2% (40-74) Lymphocytes (%) (Auto) 7.5% (14-46) Monocytes (%) (Auto) 9.7% (4-12) Eosinophils (%) (Auto) 1.3% (0-5) Basophils (%) (Auto) 0.1% (0-3) Sodium Level 136mEq/L (134-144) Potassium Level 4.9mEq/L (3.5-5.2) Chloride Level 91mEq/L (97-108) Carbon Dioxide Level 28mmol/L (18-29) Blood Urea Nitrogen 46mg/dL (8-27) Creatinine 5.26mg/dL (0.76-1.27) Estimat Glomerular Filtration Rate 12mL/min (>59) Glucose Level 116mg/dL (60-99) Calcium Level 9.3mg/dL (8.5-10.1) Total Bilirubin 0.8mg/dL (0.0-1.2) Aspartate Amino Transf (AST/SGOT) 14U/L (0-50) Alanine Aminotransferase (ALT/SGPT) 12U/L (0-44) Alkaline Phosphatase 96U/L (25-160) Total Protein 5.9g/dL (6.4-8.4) Albumin 3.7g/dL (3.4-5.0) Microbiology Results Name: DELFIN VALLE Age/Sex: 71/M Attend Dr: Ap Pearce DO Acct: [id number] Unit: [id number] Status: [facility] Location: [facility] Re12/09/16 Disch: Specimen: [id number] Collected: 12/16/16 Status: COMP Req#: [id number] Received: 12/16/16 Source: BLOOD Sp Desc : MARILIA Jeffers Dr: Branden Villarreal MD Ordered: TAL Comments: Collected by Nurse/Unit? Y/N Y Procedure Result Verified Site Microbiology EDU CULTURE BLOOD Final 12/21/16142 NO GROWTH AFTER 5 DAYS Name: DELFIN VALLE Age/Sex: 71/M Attend Dr: Ap Pearce DO Acct: [id number] Unit: [id number] Status: [facility] Location: [facility] Re12/09/16 Disch: Specimen: [id number] Collected: 12/16/16 Status: COMP Req#: [id number] Received: 12/16/16 Source: SPUTUM EXP Sp Desc : Subm Dr: Ap Pearce DO Ordered: GRAM SPT REFLEX, SPUTUM CULTURE Comments: Collected by Nurse/Unit? Y/N Y Procedure Result Verified Site Microbiology EDU CULT SPUTUM GS Final 12/16/16-1501 SPT GRAM STAIN RARE POLYS RARE EPITHELIAL CELLS FEW MIXED NORMAL SHADI This Spec is of good Quality and acceptable for Cult RESPIRATORY CULTURE Final 01/ MODERATE NORMAL SHADI PRESENT Discharge Medications Discharge Medications Ergocalciferol (Vitamin D2) (Vitamin D2) 2,000 Unit Tablet 50,000 UNIT PO WEEKLY (Reported) Furosemide (Furosemide) 80 Mg Tab 240 MG PO BID (Reported) Ipratropium [place] (Atrovent HFA) 200 Puff/12.9 Gm Inhaler 2 PUFF INH QID ( Reported) Levothyroxine (Levothyroxine) 100 Mcg Tablet 100 MCG PO HS (Reported) Melatonin/Pyridoxine (Melatonin 3 mg Tablet) 1 Each Tablet 20 MG PO HS (Reported ) Metoprolol Succinate ER (Metoprolol Succinate ER) 25 Mg Tab.er.24h 25 MG PO D ( Reported) Midodrine (Midodrine) 5 Mg Tablet 5 MG PO BEFORE DIALYSIS (Reported) Prednisone (PredniSONE) 5 Mg Tab 5 MG PO DAILY (Reported) Vitamin B Complex/Vit C (Viviana-Belen Tablet) 1 Tab Tab 1 TAB PO DAILY (Reported) As needed Albuterol Sulfate (Ventolin HFA Inhaler) 200 Puff/18 Gm Inhaler 2 PUFF INH Q4 PRN PRN For Wheezing (Reported) Clobetasol Propionate (Clobetasol Propionate) 50 Ml Solution 1 APPLIC TOPICAL DAILY PRN PRN psoriasis (Reported) Sevelamer Carbonate (Renvela) 800 Mg Tablet 800 MG PO TID PRN PRN For Indigestion (Reported) PT TAKES MED EVERY TIME HE EATS ANYTHING Followup Plan Disposition: Patient was discharged home. Discharge Diet: Renal Diet Discharge Activity: No restrictions (May increase activity gradually as tolerated.) Follow-up Provider: Ap Pearce DO Follow-up with PCP in: 1 week Time spent Time taken to discharge this patient was less than 30 minutes. Axel Nielsen MD Jan 04, 2017 12:52
== END 2016-12-27 13:25 | disposition home or self-care (01) | DRG 640 ==
LOC: MOC 08:14
PROVIDERS: ADMIT Internal Medicine Infectious Disease; ATTEND Internal Medicine Infectious Disease
PROC: 5A1D60Z (ICD-10-PCS; principal; 2016-12-25)
DX: E87.70 Fluid overload, unspecified (principal); N18.6 End stage renal disease; I50.32 Chronic diastolic (congestive) heart failure; L03.115 Cellulitis of right lower limb; L03.116 Cellulitis of left lower limb; Z99.2 Dependence on renal dialysis; Z79.52 Long term (current) use of systemic steroids; J44.9 Chronic obstructive pulmonary disease, unspecified; I48.91 Unspecified atrial fibrillation; F17.210 Nicotine dependence, cigarettes, uncomplicated; Z66 Do not resuscitate; Z99.81 Dependence on supplemental oxygen

== ENCOUNTER 2017-01-01 08:49 | Inpatient (IN) | payer MEDICARE, OTHER ==
[2017-01-01] VITALS (8 sets, daily range): BP systolic 78–99; BP diastolic 48–72; PULSE 80–119; RESP 18–24; O2SAT 92–98
[~2017-01-01] VITALS: Ht 182.9 cm; Wt 92.0 kg
[~2017-01-01 08:49] MED LIST changes: -LEVO500T79 PO; -OSEL30CA PO; -PRED-508 PO
--- NOTE | 2017-01-01 09:17 | ED.REPORT ---
HPI-Dyspnea / Wheezing Date of Service Jan 01, 2017 ED Provider: Dru Owusu MD Pt is a 71 y/o male w/ a hx of ESRD on dialysis (MWF), COPD on 4-6L home O2, CHF , presenting to the ED via EMS c/o worsening generalized weakness for 5 days. Pt was discharged 5 days ago for anasarca. He is due for dialysis today, his last dialysis treatment was 2 days ago. He c/o associated shortness of breath, lightheadedness, dizziness, fatigue, MSEA. He denies CP. fever, chills, change in cough. His BP normally runs at about 116 but today medics found him hypotensive with systolic pressure 78. Nursing Notes Stated Complaint: SHORTNESS OF BREATH Chief Complaint: Respiratory Complaints Nursing Notes Reviewed: Yes Allergies: Coded Allergies: perfume (Verified Allergy, Severe, "stops me from breathing", 01/01/17) tiotropium (Verified Allergy, Severe, SHUTS HIM DOWN, 01/01/17) Scheduled Ergocalciferol (Vitamin D2) (Vitamin D2) 2,000 Unit Tablet 50,000 UNIT PO WEEKLY Furosemide (Furosemide) 80 Mg Tab 240 MG PO BID Ipratropium Bagley (Atrovent HFA) 200 Puff/12.9 Gm Inhaler 2 PUFF INH QID Levothyroxine (Levothyroxine) 100 Mcg Tablet 100 MCG PO HS Melatonin/Pyridoxine (Melatonin 3 mg Tablet) 1 Each Tablet 20 MG PO HS Metoprolol Succinate ER (Metoprolol Succinate ER) 25 Mg Tab.er.24h 25 MG PO D Midodrine (Midodrine) 5 Mg Tablet 5 MG PO BEFORE DIALYSIS Prednisone (PredniSONE) 5 Mg Tab 5 MG PO DAILY Vitamin B Complex/Vit C (Viviana-Belen Tablet) 1 Tab Tab 1 TAB PO DAILY Scheduled PRN Albuterol Sulfate (Ventolin HFA Inhaler) 200 Puff/18 Gm Inhaler 2 PUFF INH Q4 PRN PRN For Wheezing Clobetasol Propionate (Clobetasol Propionate) 50 Ml Solution 1 APPLIC TOPICAL DAILY PRN PRN psoriasis Sevelamer Carbonate (Renvela) 800 Mg Tablet 800 MG PO TID PRN PRN For Indigestion PT TAKES MED EVERY TIME HE EATS ANYTHING General Time Seen by MD: 09:15 Chief Complaint Shortness of breath Hx Obtained From: Patient, EMS Arrived By: Ambulance Sudden in Onset?: No Onset Occurred: 9 - 12 hours ago Symptom Duration: Since onset Severity: Current: No pain currently Severity: Maximum: No pain Similar Sx Previous: Yes Past Medical History Past Medical History Notes: 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 Ap Pearce Past Medical History 1. 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 2. Severe oxygen-dependent COPD on chronic low-dose prednisone. 3. Mitral and aortic stenosis 4. Diastolic congestive heart failure 5. Hypertension with hypertensive heart disease and hypertensive nephrosclerosis. 6. Hypothyroidism. 7. Psoriasis. 8. Heavy Tobacco use disorder. 9. Dyslipidemia. 10. Chronic anemia 2nd to Renal failure. 11. Colon polyps. 12. History of atrial fibrillation. 13. PTSD with claustrophobia, cannot tolerate BPAP mask. 14. Likely sleep apnea. 15. Multilevel degenerative disc disease. 16. 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 Past Surgical History 1. Hernia repair. 2. Several ureterostomies. 3. AV fistula on left arm. 4. Knee surgery. 5. Bilateral cataract surgery. 6. Dual lumen dialysis catheter on right chest. Family History The patient's Mother from a brain tumor when the patient was 14 months old. The patient's Father who had heart disease and of stroke and several heart attacks. He was 65 when he . The patient's Half-brother who is healthy as far as he knows. The patient has three half-sisters who are estranged to the patient. Social History Hx Alcohol Use: Yes (former heavy drinker, rarely uses alcohol now) Hx Substance Use: No Hx Tobacco Use: Yes (1.5 PPD 40+ years, currently 0.5 PPD x2yrs) Smoking Status: Heavy Tobacco Smoker (1.5 PPD 40+ years, currently 0.5 PPD x 2 years) Additional Information Patient had his own [employer] and [email or web address] after high school. Then patient decided to join the [employer] at the age of 23 instead of being drafted. Patient stated in the [employer] from the ages of [age]. 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 Patient done retired from the [employer] and came back to the [place] area worked several different jobs. 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 Ambulatory Status Independent Review of Systems Constitutional: Reports: Fatigue, Weakness - generalized, Denies: Chills, Fever Respiratory: Reports: Shortness of breath, Denies: Non-productive cough Cardiovascular: Denies: Chest pain Complete sys rev & neg: except as marked. Neurologic: Reports: Dizziness, Headache, Lightheaded Physical Exam Initial Vital Signs Vital Signs (First) Date Time Temp Pulse Resp B/P Pulse Ox O2 Delivery O2 Flow Rate FiO2 01/01/17 09:03 36.3 111 24 93/72 97 Nasal Cannula 3.5 Initial VS: Reviewed Head / Eyes: Atraumatic, Normocephalic, PERRL Skin: Warm, Dry, No cyanosis Neurologic: Alert, Oriented, Nonfocal Psychiatric: Mood/affect normal, Behavior normal, Normal thought content General/Constitutional: Awake, Alert, Cooperative Appearance / Presentation: Positive: Icteric (mild) Neck: Atraumatic, Supple, No meningismus, Full range of motion JVD present Respiratory / Chest: Atraumatic, No retractions, No stridor, No chest tenderness, No chest wall deformity, No crepitus Markedly decreased air movement throughout both lungs viveros. Scattered wheezing Cardiovascular: Heart sounds NL, No gallop, No murmurs, No rubs, Cap refill not delayed, Peripheral circulation NL Heart Rate / Rhythm: Positive: Irregular rhythm, Tachycardia Heart sounds faint Palpable radial pulse Signficant pitting edema of bilateral lower extremities past the knees with bandages present ENT: Atraumatic, Airway patent Mouth: Positive: Mucous membranes dry Abdomen: Atraumatic, Soft, Non-tender, No guarding, No rebound, No distention Mild ascites Well healed midline abdominal surgical scar Upper Extremity / MS: No erythema, No deformity, Neurologic intact, Vascular intact Dialysis fistula left upper arm with palpable thrill without erythema Interpretation & Diagnostics Lab Results Interpretation Result Diagram: 01/01/1792501/01/17925 Test 01/01/17 09:26 White Blood Count 19.1th/mm3 (3.8-10.1) Red Blood Count 3.97mil/mm3 (4.40-5.80) Hemoglobin 11.2g/dL (13.8-17.2) Hematocrit 36.4% (41.0-50.0) Mean Corpuscular Volume 91.7fL (81-100) Mean Corpuscular Hemoglobin 28.2pg (27.0-35.0) Mean Corpuscular Hemoglobin Concent 30.8% (32.0-37.0) Red Cell Distribution Width 19.5% (12.3-15.4) Platelet Count 178bil/L (150-400) Neutrophils (%) (Auto) 85.8% (40-74) Lymphocytes (%) (Auto) 3.9% (14-46) Monocytes (%) (Auto) 8.3% (4-12) Eosinophils (%) (Auto) 0.1% (0-5) Basophils (%) (Auto) 0.1% (0-3) Prothrombin Time 14.1sec (8.1-12.5) Prothromb Time International Ratio 1.31ratio Sodium Level 135mEq/L (134-144) Potassium Level 5.0mEq/L (3.5-5.2) Chloride Level 88mEq/L (97-108) Carbon Dioxide Level 21mmol/L (18-29) Blood Urea Nitrogen 63mg/dL (8-27) Creatinine 7.18mg/dL (0.76-1.27) Estimat Glomerular Filtration Rate 8mL/min (>59) Glucose Level 88mg/dL (60-99) Lactic Acid Level 3.1mmol/L (0.4-2.0) Calcium Level 9.2mg/dL (8.5-10.1) Magnesium Level 2.0mg/dL (1.6-2.6) Total Bilirubin 1.1mg/dL (0.0-1.2) Aspartate Amino Transf (AST/SGOT) 212U/L (0-50) Alanine Aminotransferase (ALT/SGPT) 173U/L (0-44) Alkaline Phosphatase 110U/L (25-160) Troponin T 0.216ug/L (0.0-0.011) Pro-B-Type Natriuretic Peptide > 99228yh/mL (0-376) Total Protein 5.7g/dL (6.4-8.4) Albumin 3.5g/dL (3.4-5.0) ECG Interpretation ECG Interpretation: Atrial fibrillation rate 105 Borderline prolonged QT interval Mild ST depression lateral leads Compared to prior 12/25/16, there are no acute changes Time: 09:48 Interpreted by: ED physician Normal ECG Interpretation: No acute ischemic changes X-Ray Chest Interpretation Chest Xray Interpretation: IMPRESSION: Persistent pulmonary edema pattern superimposed on chronic interstitial prominence, with a small to moderate subpulmonic pleural effusion similar to that present 12/25/16. The effusion has not diminished, and likely has slightly increased. Relatively prominent presumed intra-articular 1.5 cm loose body left shoulder. Dictated by: Manav Wan M.D. on 01/01/2017 at 9:43 Approved by: Manav Wan M.D. on 01/01/2017 at 9:45 View: Portable, 1 view Interpretation / Wet Read by: Interpret - Radiologist Re-Eval/Medical Decision Med Decision/Clinical Course Pt is a 71 y/o male w/ a hx of ESRD on dialysis (MWF), COPD on 4-6L home O2, CHF , presenting to the ED via EMS c/o otherwise weakness, fatigue and shortness of breath that is been worsening ever since his discharge several days ago. The patient was apparently scheduled for hemodialysis this morning though sent to the emergency department without being dialyzed due to hypotension with a blood pressure in the 70s over 40s. Upon arrival he is borderline hypoxic with oxygen saturations in the 80s to 90s on his regular 4 L by nasal cannula. Examination reveals dry mucous membranes and markedly decreased air movement throughout both lung viveros. He was placed on 5 L by nasal cannula and we nurse liaison 2 [id number] DuoNeb treatments. Additionally, he was borderline hypotensive with a blood pressure in the 80s to 90s systolic over the 50s to 60s diastolic though he had a MAP above 65. Given his history of underlying congestive heart failure and unclear cause of his presentation today I did not opt to immediately administer IV fluids though rather obtain a chest x-ray and further workup before determining the cause of his presentation. Given apparent COPD exacerbation. I additionally administered 125 mg of IV methylprednisolone. Chest x-ray demonstrated scarring of both lung viveros with enlarged cardiac silhouette and left-sided pleural effusion that he did not have any findings of significant pulmonary edema. His chest x-ray was not significantly changed to prior obtained about 1 week ago. EKG was obtained and interpreted by myself as documented above. Laboratory studies were notable as below: CBC: Leukocytosis of 19.1 which is new, stable HCT of 36.4 CMP: BUN of 63 and Creatinine of 7.18 which is near his regular baselnie, lactate of 3.1, AST of 212 and ALT of 173, Troponin: 0.216, no prior available for comparison BNP: greater than 70,000 Coag studies: unremarkable Due to an ongoing hypotension I opted to administer 500 mL of fluids as there is no finding of new pulmonary edema. I withheld further fluids however given the patient's significantly elevated BNP and history of congestive heart failure. Upon initial workup I found no evidence of focal infectious etiology and he was afebrile. He does have a leukocytosis of 20 this is in the setting of chronic steroid use it difficult to interpret. He should remained borderline hypotensive with MAP greater than 65. Troponin was positive but difficult to interpret in setting of underlying renal dysfunction. After receiving DuoNeb treatments the patient reported improvement in his respiratory symptoms. Patient was discussed with admitting hospitalist and transferred to the peds care unit for further management. Source of Hx: Old records, EMS Re-Evaluation/Progress : Time of Eval: 10:14 Patient Status: Condition improved, Moderate relief Re-Evaluation/Progress Note: Pt rechecked. Informed pt of need for admission for further respiratory support and evaluation. Pt understands and agrees with plan for admission. All questions addressed. Consultation #1: Referral / Consult Name: Ap Pearce DO Consulted With: Nephrology Call Returned at: 09:37 Personal Secretary: Will see patient, Agrees with eval, Agrees with plan Consultation #2: Referral / Consult Name: Claude Tripathi MD Consulted With: Hospitalist Call Returned at: 10:27 Personal Secretary: Will see patient, Agrees with eval, Agrees with plan, Accepts admit Note: Case discussed Counseled Regarding: Diagnosis, Lab results, Need for admission Discharge & Departure Impression: Primary Impression: ESRD on dialysis Additional Impressions: Hypoxia Hypotension Hypotension type: unspecified hypotension type Qualified Code: I95.9 - Hypotension, unspecified COPD exacerbation Generalized weakness Shortness of breath Lower extremity edema Laterality: bilateral Qualified Code: R60.0 - Localized edema Elevated troponin Elevated lactic acid level Elevated brain natriuretic peptide (BNP) level Leukocytosis Leukocytosis type: unspecified Qualified Code: D72.829 - Elevated white blood cell count, unspecified Disposition: ADMITTED TO HOSPITAL Discharge Condition All VS Reviewed: Yes Condition: Stable Referrals: NOPCP (PCP) Crit Care Except Billable Proc Time Spent: 105-134 minutes Services Performed: Patient management by me, Time spent at bedside, Reviewing test results, Reviewing imaging, Discussing patient care, Documentation in record, Time with fam/surrogate Scribe Attestation Portions of this note were transcribed by Link Winston. I, Dr. Owusu personally performed the history, physical exam and medical decision-making; I reviewed and confirmed the accuracy of the information in the transcribed note. Signed by Idris Jordan, 01/01/17 - 1015 Dru Owusu MD Jan 01, 2017 09:17 LINK WINSTON Jan 01, 2017 09:28
[2017-01-01] MEDS ORDERED: Albuterol-Ipratropium 3 mL Inhalation Solution NEB ONE (09:30)
[2017-01-01] MEDS ORDERED: Ondansetron 2 mg/mL 2 mL Inj IVPUSH PRN ×2 (09:30→11:15)
[2017-01-01] MEDS ORDERED: MethylprednisoLONE Sodium Succinate 62.5 mg/mL 2 mL Inj IVPUSH ONE (09:30)
[2017-01-01] MEDS ORDERED: Albuterol 2.5 mg/3 mL Inhalation Solution NEB ONE (09:30)
[2017-01-01] MEDS ORDERED: Alum-Mag Hydrox-Simeth 30 mL Suspension PO PRN ×2 (09:30→11:15)
[2017-01-01 09:37] LABS: BASOPHILS % (AUTO) 0.1 % (0-3); EOSINOPHILS % (AUTO) 0.1 % (0-5); MONOCYTES % (AUTO) 8.3 % (4-12); Mean Corpuscular Hemoglobin 28.2 pg (27.0-35.0); Mean Corpuscular Volume 91.7 fL (81-100); NEUTROPHILS % (AUTO) 85.8 % (40-74); Platelet Count 178 bil/L (150-400)
--- NOTE | 2017-01-01 09:46 | DRSVH ---
PROCEDURE: X-RAY CHEST ONE VIEW, PORTABLE ([id number]) INDICATIONS: sob TECHNIQUE: One view of the chest was acquired. COMPARISON: [facility], CR, XR CHEST 1VW (PORTABLE), 12/25/2016, 17:23. [facility], CR, XR CHEST 1VW (PORTABLE), 12/01/2016, 15:07. FINDINGS: Surgical changes and devices: None. Lungs and pleura: No right-sided pleural effusions or pneumothorax bilaterally, but there is a subpu lmonic small to moderate left effusion similar to that present 12/25/16. Lungs are abnormal with a pe rsistent interstitial prominence and suspected pulmonary edema. Mediastinum: Mediastinal contours appear normal. Heart size is normal. Bones and chest wall: No suspicious bony lesions. There is a 1.5 cm presumed intra-articular loose body at the medial left shoulder joint. Overlying soft tissues appear unremarkable. IMPRESSION: Persistent pulmonary edema pattern superimposed on chronic interstitial prominence, with a small to moderate subpulmonic pleural effusion similar to that present 12/25/16. The effusion has n ot diminished, and likely has slightly increased. Relatively prominent presumed intra-articular 1.5 cm loose body left shoulder. Dictated by: Manav Wan M.D. on 01/01/2017 at 9:43 Approved by: Manav Wan M.D. on 01/01/2017 at 9:45
[2017-01-01 09:51] LABS: INR 1.31 ratio
--- NOTE | 2017-01-01 10:12 | NUR ---
Admit/Med Rec Pt's admission completed in ED. Pt reports "generalized weakness and BP issues" as reason for visit. A&O X3. Discharged from hospital on 12/27/16; most med history recalled. Pt reports no changes in medications since discharge. Allergies confirmed and sticker applied. Up to date on vaccines.
[2017-01-01] MEDS ORDERED: 0.9% Sodium Chloride 500 ML IV ONE (10:15)
[2017-01-01 10:21] LABS: TROPONIN T 0.216 ug/L (0.0-0.011)
[2017-01-01] MEDS ORDERED: Polyethylene Glycol (PEG) 17 Gm Powder PO PRN (11:15)
--- NOTE | 2017-01-01 11:20 | NUR ---
Palliative care note D/A: Phone call this am from Catalina MORTON at [facility]. She notes that pt is on his way into ED and has cancelled dialysis for today. She has been trying to set up hospice info visit for pt but pt has cancelled at least once. She requests that if palliative care receives order for consult for pt- to please address hospice with pt. Phone call as well from Susan from [facility]. She also notes that agency has been working with [facility] to attempt to arrange for info visit but have not been successful yet. She indicates that if pt wishes an info visit today-Catalina has availability. Pt has been admitted to CCU 2016. Phone call to Catalina ([facility]) and Susan ([facility]) to advise both of admission. P: Palliative care to continue to follow. Carley MATTHEWS, CCM
[2017-01-01] MEDS: Albuterol-Ipratropium 3 mL Inhalation Solution NEB SCH ×2 (11:25→12:30)
[2017-01-01] MEDS ORDERED: Vancomycin Dose per Pharmacist XX SCH (13:00)
--- NOTE | 2017-01-01 13:03 | CONS ---
[address] [address] CONSULTATION REPORT PATIENT: KASSANDRA CARNEY : 1945 MR#: [id number] ADMIT: 01/01/2017 JOB ID: [id number] DATE OF SERVICE: 01/01/2017 RENAL CONSULTATION: HISTORY OF PRESENT ILLNESS: The patient is a rather unfortunate 71-year-old white male who has a history of multiple medical problems including end-stage renal disease-dialysis dependent, end-stage COPD, and end-stage systolic congestive heart failure. He is being admitted to the hospital for generalized weakness and severe fluid overload. Renal consultation is being sought for further evaluation and management of his chronic kidney disease. I am quite familiar with the patient and have followed him for a number of months. He has been in declining health, most significantly within approximately the last 4-5 months. One of his biggest limiting factors during dialysis is intermittent hypotension. He has severe systolic dysfunction and normally runs a systolic blood pressure between the upper 80s to low 100 range. He has had some response to midodrine, which he frequently takes before and during his dialysis treatments. He has had a number of hospitalizations for repeated dialysis treatments in an attempt to decrease his volume load. He has had progressive weakness, especially in his lower extremities. This morning he was being escorted to his son's truck to come for his dialysis treatment and he states that his legs gave out. He denies any syncopal symptoms and did not strike his head. He was brought to the emergency department and at that time was found to have a systolic blood pressure in the 70s. He denies any chest pain. He does have chronic dyspnea with or without exertion and at rest along with chronic orthopnea. He is on home oxygen continuously and also on a number of inhaled medications for his COPD. He states that his abdominal girth is about the same as it has been and does not state that he has had any additional lower extremity edema. Of note, he has been seen by palliative care several times in the past and is considering hospice. PAST MEDICAL HISTORY: 1. 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 He normally dialyzes Wednesday, Wednesday, and Wednesday. 2. Severe end-stage COPD for which he is on oxygen and chronic steroid therapy. 3. Both mitral and aortic stenosis with diastolic and systolic congestive heart failure. 4. Hypertension with hypertensive heart disease and hypertensive nephrosclerosis. 5. Hypothyroidism. 6. Atrial fibrillation. 7. Multiple degenerative disk disease. 8. Sleep apnea. PAST SURGICAL HISTORY: 1. Significant for several failed AV fistulas and his current fistula is in his left arm. 2. Cataract surgery. 3. Knee surgery. 4. Several ureterostomies. 5. Hernia repair. ALLERGIES: HE STATES THAT HE IS ALLERGIC TO PERFUME AND TIOTROPIUM. SOCIAL HISTORY: He has a history of heavy ethanol use, however minimally uses alcohol now. He continues to smoke cigarettes and has a greater than 100 pack-year smoking history. He is quite limited in his activities of daily living, which he is unable to perform without significant difficulties. PHYSICAL EXAMINATION: Revealed a cyanotic, chronically ill-appearing, 71-year-old cachectic male who was in some [id number] respiratory distress at the time of my evaluation. He had evidence of mild to moderate conversational dyspnea. HEENT remarkable for pale sclerae. Neck was supple, without adenopathy or thyromegaly, and he had moderate jugular venous distention at 90 degrees. Lungs showed increased AP diameter and bibasilar rales were noted. Heart was irregularly irregular. Abdomen was distended, without evidence for a free fluid wave. There was some mild tympany to percussion, but no tenderness, rebound, guarding, or masses was noted. Extremities showed chronic skin changes secondary to chronic moderate to severe pitting edema in both lower extremities. His nail beds revealed cyanosis. LABORATORY DATA: At time of admission his white count was 19.1 with 86% neutrophils, hemoglobin was 12.2. Sodium was 135, potassium 5.0, chloride of 88, CO2 of 21, BUN and creatinine were 63 and 7.18. IMPRESSION: 1. End-stage renal disease-dialysis dependent. 2. Chronic biventricular congestive heart failure with end-stage features of congestive heart failure. 3. End-stage chronic obstructive pulmonary disease. RECOMMENDATION: 1. The patient is to be admitted to the intensive care unit. 2. We will be dosing his midodrine both for dialysis and also around the clock to try to maintain a systolic blood pressure of 88 or greater. 3. We will dialyze the patient today for 4 hours on a Revaclear dialyzer and a 2 potassium bath and give him a loading dose of 1200 units of heparin and 500 an hour. We will try to take 3-4 L of fluid off today. I would also like to give him a dose of 25 of mannitol at the start of his treatment and repeat this after 2 hours, along with an additional dose or two of midodrine as his blood pressure tolerates this. Once again, I would like to thank you for allowing me to participate in the care of this rather unfortunate patient. I will be following him closely with you.
[2017-01-01] MEDS ORDERED: Albuterol 2.5 mg/3 mL Inhalation Solution NEB PRN (13:05)
[2017-01-01] MEDS ORDERED: Piper-Tazo 3.375 Gm/50 mL D5W Minibag Plus - Q8H over 4 hrs IV ONE ×2 (13:55)
[2017-01-01] MEDS ORDERED: Vancomycin Inj 500 MG in 0.9% Sodium Chloride 100 ML IV PRN (14:00)
[2017-01-01] MEDS ORDERED: Vancomycin Inj 1,500 MG in 0.9% Sodium Chloride 500 ML IV ONE (14:00)
[2017-01-01] MEDS: Mannitol 25% 12.5 Gm/50 mL Inj IVPUSH SCH ×2 (14:08→16:15)
--- NOTE | 2017-01-01 14:16 | PCM.HPMED ---
Subjective Date of Service Jan 01, 2017 Primary Provider: Admitting Physician: Claude Tripathi MD Primary Care Physician: Noprio Attending Physician: Claude Triptahi MD Chief Complaint: Weakness, SOB, and increased sputum production History of Present Illness: Delfin Valle is a 70 year old male with history of COPD with current heavy tobacco use, ESRD on dialysis, diastolic CHF, afib, HTN, and HLD who presents to the ED complaining of generalized weakness, increased shortness of breath, and sputum production. This morning he was leaving the house for dialysis treatment and his legs gave out. He denies any syncopal symptoms such as dizziness, lightheadedness, palpitations, blurry vision, or chest pain. His son caught him and he did not fall or strike his head. He also notes increased shortness of breath over the last few days and increased sputum production. Sputum is chronic and clear. At baseline he states he wears oxygen ranging from 3-10 L. He has been using his inhalers more frequently and is on 5 mg of prednisone at baseline. Patient has had multiple recent hospitalizations with last discharge on . During these hospitalizations he has received repeated dialysis treatments to attempt to decrease his volume load. There is some difficulty with maintaining his blood pressure during dialysis treatments and he has been placed on midodrine. Of note the patient states she had a hospice meeting scheduled for today. He states that he contacted them and they will visit him in the hospital. Patient wishes to proceed with treatment but his CODE STATUS is DNR/DNI. Upon arrival to the ED vitals were temp 36.3, pulse 111, respiratory rate 24, oxygen saturation 97% on 3.5 L nasal cannula, blood pressure 93/72. Pertinent labs include white blood cell count of 19.1 with a left shift, BUN/creatinine 63 and 7.18, lactic acid 3.1, AST and ALT of 212 and 173. Review of Systems: Comprehensive review of systems was conducted with the patient and found to be negative except as noted above in HPI. Allergies Coded Allergies: perfume (Verified Allergy, Severe, "stops me from breathing", 01/01/17) tiotropium (Verified Allergy, Severe, SHUTS HIM DOWN, 01/01/17) Home Medications Albuterol every 4 hours Atrovent 2 puffs 4 times a day Clobetasol Flucinonide Furosemide 80 mg twice a day Levaquin 250 mg daily Levofloxacin 100 MCG daily Metoprolol succinate ER 25 mg daily Midrin 5 mg half tablet prior to hemodialysis and half tablet during hemodialysis Prednisone 10 mg daily Qvar 2 puffs twice a day Renvela 800 mg 3 times a day with meals Sensipar 30 mg 1 tablet every day with meals Trazodone 50 mg at bedtime Ventolin 2 puffs every 4-6 hours as needed Vitamin D 50,000 units 1 capsule every 6 weeks PMH COPD on home O2 and low-dose prednisone End-stage renal disease on dialysis M/W/F Diastolic congestive heart failure Mitral stenosis Aortic stenosis Heavy Tobacco use disorder Dyslipidemia Hypertension Hypothyroidism Chronic anemia 2nd to Renal failure Colon polyps History of atrial fibrillation Psoriasis PTSD with claustrophobia, cannot tolerate BPAP mask Likely sleep apnea Multilevel degenerative disc disease History of SCC on left arm s/p removal Surgical History Ureter surgeries in 2005 Knee surgery Bilateral cataract surgery AV fistula on left arm Dual lumen dialysis catheter on right chest Family History Mother brain tumor Father Hx of stroke and heart attacks Social History Hx Alcohol Use: Yes Hx Substance Use: No Hx Tobacco Use: Yes (1.5 PPD 40+ years, currently 0.5 PPD x2yrs) Years of Smokin+ Living Arrangement: with Family Exam Vital Signs Vital Sign - Last Date Time Temp Pulse Resp B/P Pulse Ox O2 Delivery O2 Flow Rate FiO2 01/01/17 12:30 119 01/01/17 11:00 36.3 18 99/68 96 Nasal Cannula 2.00 Exam General: Mild distress, chronically ill-appearing, appropriately interactive HEENT: Normocephalic, atraumatic. External ears without defect. Pupils equal, round, and reactive to light and accommodation. Anicteric sclerae, moist conjunctivae, and no lid lag. Oropharynx free of erythema and cobble stoning with moist mucosa. Neck: Supple with full range of motion. JVD. No lymphadenopathy or thyromegaly. Cardiovascular: Tachycardic rate and rhythm with systolic murmur. Pulmonary: Decreased breath sounds. Barrel chested. Accessory muscle use. Abdomen: Bowel tones present. Soft, nontender, distended. Extremities: Clubbing and cyanosis present. Lower extremity pitting edema with chronic venous stasis. Pain upon palpation of posterior right lower extremity. Left arm AV fistula. Skin: Diffuse skin ecchymosis and fragile skin. Neurological: Cranial nerves grossly intact. Normal muscle strength, tone, and bulk. Reflexes, coordination, and sensory function within normal limits. No known gait impairment. Psychiatric: Normal mood and affect. Alert and oriented to person, place, and time. Lab and Diagnostics Result Diagram: 01/01/1792501/01/17925 X-Rays, CTs and MRIs X-RAY CHEST ONE VIEW, PORTABLE IMPRESSION: Persistent pulmonary edema pattern superimposed on chronic interstitial prominence, with a small to moderate subpulmonic pleural effusion similar to that present 12/25/16. The effusion has not diminished, and likely has slightly increased. Relatively prominent presumed intra-articular 1.5 cm loose body left shoulder. Dictated by: Manav Wan M.D. on 01/01/2017 at 9:43 Approved by: Manav Wan M.D. on 01/01/2017 at 9:45 Assessment & Plan Delfin Valle is a 70 year old male with history of COPD and tobacco use, ESRD on dialysis, diastolic CHF, afib, HTN, and HLD who presents to the ED complaining of generalized weakness, increased shortness of breath, and sputum production. 1. Acute on chronic hypercapnic respiratory failure, present on admission, active. - Etiology likely secondary to fluid overload, COPD exacerbation, or HCAP. - Supplemental oxygen as needed. At home patient uses 3-10 L by nasal cannula. - Patient does not tolerate BiPAP as he is claustrophobic. - DuoNeb scheduled every 4 hours. - Albuterol every 4 hours when necessary. - Ipratropium bromide 4 times a day. - Solu-Medrol 30 mg every 8 hours. - Repeat labs and chest x-ray in the morning. 2. Possible healthcare associated pneumonia, present on admission, active. - Patient with leukocytosis with left shift, increased shortness of breath, and sputum production. - Blood and sputum cultures collected and pending. - Urine Legionella and strep pneumoniae antigen pending. - Pro calcitonin pending. - Empiric antibiotics: Vancomycin, Zosyn, azithromycin started on 01/01. 3. End-stage renal disease on dialysis, present on admission, ongoing. - Dialysis is planned for today. Patient receives dialysis Wednesday, Wednesday, Wednesday. - Renvela 800 mg 3 times a day - Midodrine 5 mg to be used prior to dialysis and again during dialysis. - Follow neurology consulted. Appreciate time and expertise. 4. COPD exacerbation, present on admission, active. - Treatment as above. 5. Right lower extremity pain, present on admission, active. - Patient with chronic venous stasis and ulceration. Concern for possible DVT. - Bilateral lower extremity ultrasound ordered and pending. 6. Elevated lactic acid, present on admission, active. - Etiology likely infectious versus hypoperfusion. - Lactic acid on admission 3.1. - We will continue to trend. 7. Elevated LFTs, present on admission, active. - AST 212 and ALT 173 and admission. - Consider abdominal ultrasound pending hospice meeting this afternoon. 8. 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 - Echo 08/12/16 showed mitral valve vegetation - Dr. Woods is patient's drum stock clerk - Vancomycin and ceftazidime during HD sessions 9. HFpEF, does not admission, possible exacerbation - Patient appears fluid overloaded but blood pressures are slightly low at this ti - Echo on 08/12/16 reveals an EF of 60-65% with severe mitral calcification, and mobile mass attached to the posterior leaflet. Severe mitral stenosis and aortic stenosis. me. - Dialysis planned for today. - Holding furosemide. Home doses furosemide 80 mg daily. - Monitor on telemetry 10. Tobacco use, chronic - Pt smokes half pack per day. - Previously refused the patch as it makes him nauseous. - Pt counseled on smoking cessation. 11. Hypothyroidism, chronic - Levothyroxine 100 MCG's at bedtime. 12. Hypertension, chronic - Metoprolol XL 25 mg twice a day. 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 Pain Evaluation: Adequate Pain Control GI Prophylaxis: Not indicated VTE Prophylaxis: Sub-Q Heparin (Unfractionated) Resuscitation Status: DNR/DNI:Do Not Resuscitate/Intubate Time spent 55 minutes Attending Statement patient seen and examined with Dr Duran .I agree with the history,exam, impression and plan as outlined above PARVEZ DURAN DO Jan 01, 2017 14:16 Claude Tripathi MD Jan 01, 2017 15:04
[2017-01-01] MEDS: Ipratropium HFA 200 Puff 12.9 Gm Inhaler INHALATION SCH ×3 (16:30→19:43)
[2017-01-01] MEDS ORDERED: MethylprednisoLONE Sodium Succinate 40 mg/mL Inj IVPUSH SCH (16:30)
--- NOTE | 2017-01-01 17:03 | NUR ---
pt arrived to [facility] for DIALYSIS at 1345 via bed report received from BG WILLIAMSON ([facility]) tele garage door service technician informed of temp room location pt hypotensive upon arrival and during start of dialysis; multiple doses of midodrine given with some improvement to SBP (see dialysis graphic flow and emar) while discussing plan of care with pt, he states "nothing is working anymore" and "I think its time to stop all this" provided therapeutic communication primary nursing care was assumed by SLOAN WILLIAMSON ([facility]) from [facility] WILLIAMSON status update/report provided to SLOAN WILLIAMSON at 1630 Addendum: 01/01/17 at 1837 by HENRY MEDINA RN pt escorted back to [facility] post dialysis at 1830 bedside report provided back to SLOAN WILLIAMSONcable television installer garage door service technician informed of return to unit
--- NOTE | 2017-01-01 18:15 | NUR ---
Dialysis note: 4 hrs tx (1-1/2 hrs HD + 2-1/2 hrs PUF). 2000 ml net UF. Left upper arm fistula. Midodrine 7.5 mg po given at start of tx and after 1 hr then Midodrine 10 mg po given group home in the tx. Mannitol 25 Gm IV given at start of tx and after 2 hrs. Pls see DTR for VS details. Hypotensive at start and during tx, Dr. Pearce notified, came in and saw pt during tx. Qb 400. No heparin given. O2 @ 4L via NC on. Slept at intervals. Fistula needle sites clotted w/in 10 min. Report given to Miranda Flaherty RN. Stable at time of transfer.
--- NOTE | 2017-01-01 18:20 | NUR ---
Arrival to [facility] Resumed care of this patient from Erica Devi RN post dialysis at approx 1830 -- stable.
--- NOTE | 2017-01-01 19:36 | NUR ---
Wound Pt seen at bedside, complaining of severe right lower calf pain tender to touch. Dr Anaya ordering ultrasound. Pt presents with significant edema especially at his left lower leg, his left adames and posterior calf are at this point weeping significantly and toes are dusky and abraded on both feet, feet are cold to the touch. My concern would be whether this patient has reached the point of Calciphalaxsis onset. Wrapped left leg with kerlix after applying 2 mepilex foam sheets to control drainage. right not wrapped as ultrasound is pending and he doesn't really have anything open on this side. Recommend nursing changed dressings as need for drainage, can leave in tact if no breakthrough drainage for pain considerations.
[2017-01-01] MEDS: Heparin 5,000 Unit/mL Inj SUBQ SCH ×2 (19:41→20:30)
[2017-01-01] MEDS ORDERED: Linezolid Inj 600 MG in IV Premix 1 EACH IV SCH (20:30)
[2017-01-01] MEDS ORDERED: Piper-Tazo 3.375 Gm/50 mL D5W Minibag Plus - Q8H over 4 hrs IV SCH ×2 (20:30)
[2017-01-01] MEDS ORDERED: MeTOProlol XL 25 mg ER24 Tablet PO SCH (20:30)
--- NOTE | 2017-01-01 22:13 | NUR ---
Pt passing At 2100, pt's son arrived and pt vehemently insisted on having son carry him to the bathroom. Pt and family advised that previously rn relief charge Royal Reeves RN and Nyla Flaherty CNA attempted to assist pt to bathroom and pt was too weak to stand and assisted back to bed from sitting at edge of bed. Irregardless pt refused bedside commode or bedpan. die polisher and myself were in the room as pt was transferred by son to the bathroom. We spoke with son about pt's earlier refusal to take evening medications and refusal of using the bedpan. Son then went to the bathroom and within 2 minutes pulled the the emergency light. Myself and several other care staff entered the room. Pt was unresponsive on toilet. Doppler was obtained and no pulse found via the femoral artery, carotid, or fistula site. I called the technical testing engineer who stated pt was in an slow aflutter in the 50's. Pt's code status a DNR/DNI. Pt pronounced at 2139. Son was assisted to another room to call family and collect himself. Supervisor Pigment Making with several staff members placed pt back into bed. Son given as much time to spend with pt and support.
[2017-01-02] MEDS ORDERED: Vitamin B Complex/Vit C Tablet PO SCH (08:30)
--- NOTE | 2017-01-02 15:53 | PCM.DC.MEX ---
Discharge Summary Date of Service Jan 02, 2017 Dates of Hospitalization Date of Hospital Admission Jan 01, 2017 at 10:28 Date of Expiration: Jan 01, 2017 Time of Expiration: 21:39 Providers: Admitting Physician: Claude Tripathi MD Primary Care Physician: Sera Attending Physician: Claude Tripathi MD Diagnosis at Time of 1. Acute on chronic hypercapnic respiratory failure 2. Possible healthcare associated pneumonia 3. End-stage renal disease on dialysis 4. COPD exacerbation 5. Right lower extremity pain 6. Elevated lactic acid 7. Elevated LFTs 8. 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 HFpEF 10. Tobacco use 11. Hypothyroidism 12. 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 Pearce - Nephrology Procedures XRay, CTs & MRIs X-RAY CHEST ONE VIEW, PORTABLE IMPRESSION: Persistent pulmonary edema pattern superimposed on chronic interstitial prominence, with a small to moderate subpulmonic pleural effusion similar to that present 12/25/16. The effusion has not diminished, and likely has slightly increased. Relatively prominent presumed intra-articular 1.5 cm loose body left shoulder. Dictated by: Manav Wan M.D. on 01/01/2017 at 9:43 Approved by: Manav Wan M.D. on 01/01/2017 at 9:[address] Duran's H&P: Delfin Valle is a 70 year old male with history of COPD with current heavy tobacco use, ESRD on dialysis, diastolic CHF, afib, HTN, and HLD who presents to the ED complaining of generalized weakness, increased shortness of breath, and sputum production. This morning he was leaving the house for dialysis treatment and his legs gave out. He denies any syncopal symptoms such as dizziness, lightheadedness, palpitations, blurry vision, or chest pain. His son caught him and he did not fall or strike his head. He also notes increased shortness of breath over the last few days and increased sputum production. Sputum is chronic and clear. At baseline he states he wears oxygen ranging from 3-10 L. He has been using his inhalers more frequently and is on 5 mg of prednisone at baseline. Patient has had multiple recent hospitalizations with last discharge on . During these hospitalizations he has received repeated dialysis treatments to attempt to decrease his volume load. There is some difficulty with maintaining his blood pressure during dialysis treatments and he has been placed on midodrine. Of note the patient states she had a hospice meeting scheduled for today. He states that he contacted them and they will visit him in the hospital. Patient wishes to proceed with treatment but his CODE STATUS is DNR/DNI. Hospital Course Delfin Valle is a 70 year old male with history of COPD and tobacco use, ESRD on dialysis, diastolic CHF, afib, HTN, and HLD who presents to the ED complaining of generalized weakness, increased shortness of breath, and sputum production. 1. Acute on chronic hypercapnic respiratory failure, present on admission, active. - Etiology likely secondary to fluid overload, COPD exacerbation, or HCAP. - Supplemental oxygen as needed. At home patient uses 3-10 L by nasal cannula. - Patient does not tolerate BiPAP as he is claustrophobic. - DuoNeb scheduled every 4 hours. - Albuterol every 4 hours when necessary. - Ipratropium bromide 4 times a day. - Solu-Medrol 30 mg every 8 hours. 2. Possible healthcare associated pneumonia, present on admission, active. - Patient with leukocytosis with left shift, increased shortness of breath, and sputum production. - Blood and sputum cultures collected and pending. - Urine Legionella and strep pneumoniae antigen pending. - Pro calcitonin pending. - Empiric antibiotics: Vancomycin, Zosyn, azithromycin started on 01/01. 3. End-stage renal disease on dialysis, present on admission, ongoing. - Dialysis is planned for today. Patient receives dialysis Wednesday, Wednesday, Wednesday. - Renvela 800 mg 3 times a day - Midodrine 5 mg to be used prior to dialysis and again during dialysis. - Nephrology consulted. Appreciate time and expertise. 4. COPD exacerbation, present on admission, active. - Treatment as above. 5. Right lower extremity pain, present on admission, active. - Patient with chronic venous stasis and ulceration. Concern for possible DVT. - Bilateral lower extremity ultrasound ordered and pending. 6. Elevated lactic acid, present on admission, active. - Etiology likely infectious versus hypoperfusion. - Lactic acid on admission 3.1. 7. Elevated LFTs, present on admission, active. - AST 212 and ALT 173 and admission. - Consider abdominal ultrasound pending hospice meeting. 8. 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 - Echo 08/12/16 showed mitral valve vegetation - Dr. Woods is patient's custody assistant - Vancomycin and ceftazidime during HD sessions 9. HFpEF, does not admission, possible exacerbation - Patient appears fluid overloaded but blood pressures are slightly low at this ti - Echo on 08/12/16 reveals an EF of 60-65% with severe mitral calcification, and mobile mass attached to the posterior leaflet. Severe mitral stenosis and aortic stenosis. me. - Dialysis planned for today. - Holding furosemide. Home doses furosemide 80 mg daily. - Monitor on telemetry 10. Tobacco use, chronic - Pt smokes half pack per day. - Previously refused the patch as it makes him nauseous. - Pt counseled on smoking cessation. 11. Hypothyroidism, chronic - Levothyroxine 100 MCG's at bedtime. 12. Hypertension, chronic - Metoprolol XL 25 mg twice a day. 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 Exam Test 01/01/17 09:26 White Blood Count 19.1th/mm3 (3.8-10.1) Red Blood Count 3.97mil/mm3 (4.40-5.80) Hemoglobin 11.2g/dL (13.8-17.2) Hematocrit 36.4% (41.0-50.0) Mean Corpuscular Volume 91.7fL (81-100) Mean Corpuscular Hemoglobin 28.2pg (27.0-35.0) Mean Corpuscular Hemoglobin Concent 30.8% (32.0-37.0) Red Cell Distribution Width 19.5% (12.3-15.4) Platelet Count 178bil/L (150-400) Neutrophils (%) (Auto) 85.8% (40-74) Lymphocytes (%) (Auto) 3.9% (14-46) Monocytes (%) (Auto) 8.3% (4-12) Eosinophils (%) (Auto) 0.1% (0-5) Basophils (%) (Auto) 0.1% (0-3) Prothrombin Time 14.1sec (8.1-12.5) Prothromb Time International Ratio 1.31ratio Sodium Level 135mEq/L (134-144) Potassium Level 5.0mEq/L (3.5-5.2) Chloride Level 88mEq/L (97-108) Carbon Dioxide Level 21mmol/L (18-29) Blood Urea Nitrogen 63mg/dL (8-27) Creatinine 7.18mg/dL (0.76-1.27) Estimat Glomerular Filtration Rate 8mL/min (>59) Glucose Level 88mg/dL (60-99) Lactic Acid Level 3.1mmol/L (0.4-2.0) Calcium Level 9.2mg/dL (8.5-10.1) Magnesium Level 2.0mg/dL (1.6-2.6) Total Bilirubin 1.1mg/dL (0.0-1.2) Aspartate Amino Transf (AST/SGOT) 212U/L (0-50) Alanine Aminotransferase (ALT/SGPT) 173U/L (0-44) Alkaline Phosphatase 110U/L (25-160) Troponin T 0.216ug/L (0.0-0.011) Pro-B-Type Natriuretic Peptide > 94055xn/mL (0-376) Total Protein 5.7g/dL (6.4-8.4) Albumin 3.5g/dL (3.4-5.0) Procalcitonin 0.70ng/mL (0.00-0.08) Attending Statement patient overnight at 2139 on 01/01/16 due to acute on chronic respiratory failure due to COPD exacerbation due to HCAP agree with summary PARVEZ DURAN DO Jan 02, 2017 15:53 Claude Tripathi MD Jan 02, 2017 16:14
[2017-01-04] MEDS ORDERED: Vancomycin Serum Trough XX ONE (05:00)
== END 2017-01-01 21:39 | disposition expired | DRG 190 ==
LOC: EDBD 08:49 → SED 08:49 → PCC 10:28 → CCU 10:46 → PCC 12:26
PROVIDERS: ADMIT Internal Medicine; ATTEND Internal Medicine
PROC: 5A1D00Z (ICD-10-PCS; principal; 2017-01-01)
DX: J44.0 Chronic obstructive pulmonary disease with (acute) lower respiratory infection (principal); J18.9 Pneumonia, unspecified organism; N18.6 End stage renal disease; J96.22 Acute and chronic respiratory failure with hypercapnia; I13.2 Hypertensive heart and chronic kidney disease with heart failure and with stage 5 chronic kidney disease, or end stage renal disease; I50.22 Chronic systolic (congestive) heart failure; J44.1 Chronic obstructive pulmonary disease with (acute) exacerbation; Z99.81 Dependence on supplemental oxygen; Z99.2 Dependence on renal dialysis; E03.9 Hypothyroidism, unspecified; F17.210 Nicotine dependence, cigarettes, uncomplicated; E78.5 Hyperlipidemia, unspecified; D63.1 Anemia in chronic kidney disease; Z66 Do not resuscitate; I05.9 Rheumatic mitral valve disease, unspecified